=== PATIENT | female | born 1945 | race Caucasian/White ===

== ENCOUNTER 2019-04-14 12:41 | Outpatient (CLI) | payer MEDICARE, SELFPAY ==
--- NOTE | ~2019-04-14 | MM_ITS ---
EXAMINATION: MM screening [facility] BI w ede HISTORY: Screening mammogram TECHNIQUE: Craniocaudal and mediolateral oblique 3-D tomosynthesis images were obtained and synthetic 2-D images were generated. CAD analysis was submitted and interpreted. COMPARISON: 04/10/2018, 03/20/2017, 02/16/2016 BREAST PARENCHYMAL COMPOSITION: There are scattered areas of fibroglandular density. FINDINGS: An intramammary lymph node is noted in the upper outer quadrant of the left breast. There i s no evidence of suspicious mass, calcification, or architectural distortion to suggest malignancy in either breast. There has been no suspicious interval change. IMPRESSION: 1. No mammographic evidence of malignancy. 2. Recommend routine screening mammography in one year. BI-RADS Category 2: Benign finding(s). Reviewed, dictated and finalized at location A.
== END 2019-04-14 12:42 | disposition home or self-care (01) ==
PROVIDERS: PCP Internal Medicine; Visit Provider Internal Medicine
DX: Z12.31 Encounter for screening mammogram for malignant neoplasm of breast (principal)
CPT/HCPCS: 77063; 77067

== ENCOUNTER 2020-04-19 09:09 | Outpatient (CLI) | payer MEDICARE, SELFPAY ==
--- NOTE | ~2020-04-19 | MM_ITS ---
EXAMINATION: MM screening [facility] BI w ede HISTORY: Screening TECHNIQUE: Craniocaudal and mediolateral oblique 3-D tomosynthesis images were obtained and synthetic 2-D images were generated. CAD analysis was submitted and interpreted. COMPARISON: Comparison to multiple prior studies sequentially, with oldest reviewed study dated 01/05. BREAST PARENCHYMAL COMPOSITION: There are scattered areas of fibroglandular density. FINDINGS: There is no evidence of suspicious mass, calcification, or architectural distortion to sugg est malignancy in either breast. There has been no suspicious interval change. IMPRESSION: 1. No mammographic evidence of malignancy. 2. Recommend routine screening mammography in one year. BI-RADS Category 1: Negative Reviewed, dictated and finalized at location A.
== END 2020-04-19 09:10 | disposition home or self-care (01) ==
LOC: CHSIMG 09:12
PROVIDERS: PCP Internal Medicine; Visit Provider Internal Medicine
DX: Z12.31 Encounter for screening mammogram for malignant neoplasm of breast (principal)
CPT/HCPCS: 77063; 77067

== ENCOUNTER 2020-12-24 15:03 | Outpatient (RCR) | payer MEDICARE, SELFPAY ==
--- NOTE | 2020-12-24 16:01 | PTOPEVAL ---
Thank you for referring Sowmya Copeland to [facility].? The patient is scheduled to be seen for therapy? ____x/week for ___ weeks. Please review, sign, date and return this plan of care KAEL. I agree with and certify that the following plan of care is medically necessary. Referring Physician Date Admitting Provider: Attending Provider: AMY OJEDA Referring Provider: JennyPT Outpatient Evaluation Start: 12/24/20 15:04 Freq: Status: Active Protocol: Document 12/24/20 15:08 ACR (Rec: 12/24/20 16:01 ACR [id number]) Therapy Assessment Status Assessment Status Assessment Status Evaluation Evaluation Information Problem Diagnosis R hip tendonitis Onset 12/21/20 Subjective Information Patient states that she was Query Text:As Reported By Patient/ pulling a wagon in the yard Family and felt a pop in the knee. She went to the MD and got a cortizone shot in the knee which only gave relief for a couple of days. 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 Patient reports that she has difficulty moving when she first gets up. She has difficulty with navigating the steps. She does not ambulate with an AD usually but is using a standand walker today because her hip is bothering her more than usual. Patient states that she was able to walk quite a bit before she hurt her hip. Patient denies falls. Patient states that her goal for therapy is to be able to walk without pain. Prior Level of Function Activity Level (Last 3 Months) Occupation [employer] worker Hand Dominance Right Activity of Daily Living Ability Independent Indoor/Home Mobility Independent Community Mobility Independent Stairs Ability Independent Functional Cognition (Planning, Shopping Independent , Taking Medications) Cooking Yes Cleaning Yes Laundry Yes Shopping Yes Driving Yes Pain Assessment Timing of Pain Assessment Timing of Pain Assessment Assessment Pain Scale Pain Scale Used
--- NOTE | 2021-01-18 15:01 | PTOPEVAL ---
Thank you for referring Sowmya Copeland to [facility].? The patient is scheduled to be seen for therapy? ____x/week for ___ weeks. Please review, sign, date and return this plan of care KAEL. I agree with and certify that the following plan of care is medically necessary. Referring Physician Date Admitting Provider: Attending Provider: AMY OJEDA Referring Provider: JennyPT Outpatient Evaluation Start: 12/24/20 15:04 Freq: Status: Active Protocol: Document 01/18/21 14:19 ACR (Rec: 01/18/21 15:01 ACR [id number]) Therapy Assessment Status Assessment Status Assessment Status Progress Evaluation Information Problem Diagnosis R hip tendonitis Onset 12/21/20 Subjective Information Patient states that since Query Text:As Reported By Patient/ beginning therapy she is able Family to walk a lot better. She still has difficulty with the first couple of steps but it is not as bad as it use to be. The patient states that she no longer has the shooting pain. Patient states that she is able to walk with a little bit of pain, but is unsure if it is from her knee or her hip . Pain Assessment Timing of Pain Assessment Timing of Pain Assessment Assessment Pain Scale Pain Scale Used Numeric (1 - 10) Self Report Pain Assessment Right Hip(s) Reported Pain Level 2 Greatest Pain Intensity 4 Pain Score Pain Score 2: Self Report Interventions Used Interventions Used By Clinicians Activity or ADL's,Exercise Lower Extremity Muscle Strength Testing Hip Strength Right Hip Flexion Strength 4+ Good + Left Hip Flexion Strength 5 Normal Knee Strength Right Knee Flexion Strength 4+ Good + Knee Extension Strength 4+ Good + Left Knee Flexion Strength 5 Normal Knee Extension Strength 5 Normal General Exercise General Exercises Exercise Description -Nustep Query Text:Record Sets, Reps, - PROM HS/piriformis Resistance, and Position stretching x 4 min - supine marching x 1 min - right knee 90* lindsay hip flexion 5 sec x 20 - right SLR 2 x 10 - supine lindsay ball chop 5 sec x 25 - quadriped diagonals x 20 ea - right clamshell x 20
--- NOTE | 2021-01-27 15:17 | PTOPEVAL ---
Thank you for referring Sowmya Copeland to [facility].? The patient is scheduled to be seen for therapy? ____x/week for ___ weeks. Please review, sign, date and return this plan of care KAEL. I agree with and certify that the following plan of care is medically necessary. Referring Physician Date Admitting Provider: Attending Provider: AMY OJEDA Referring Provider: JennyPT Outpatient Evaluation Start: 12/24/20 15:04 Freq: Status: Active Protocol: Document 01/27/21 13:34 ACR (Rec: 01/27/21 15:16 ACR [id number]) Therapy Assessment Status Assessment Status Assessment Status Progress Evaluation Information Problem Diagnosis R hip tendonitis Subjective Information Patient reports that since Query Text:As Reported By Patient/ beginning therapy she has been Family feeling a lot better and no longer has the sharp pains in the R thigh. She reports she went back to the MD and is going in for R knee replacement on 02/23 and has a new order for prehab. Pain Assessment Timing of Pain Assessment Timing of Pain Assessment Assessment Pain Scale Pain Scale Used Numeric (1 - 10) Self Report Pain Assessment Right Hip(s) Reported Pain Level 2 Greatest Pain Intensity 6 Pain Score Pain Score 2: Self Report Interventions Used Interventions Used By Clinicians Activity or ADL's,Exercise Upper Extremity Range of Motion General Upper Extremity Range of Motion Gross Upper Extremity Range of Motion R knee AROM: 0-127 Comments Lower Extremity Muscle Strength Testing Hip Strength Right Hip Flexion Strength 5 Normal Knee Strength Right Knee Flexion Strength 4+ Good + Knee Extension Strength 4+ Good + General Exercise General Exercises Exercise Description -Nustep Query Text:Record Sets, Reps, - PROM HS/piriformis Resistance, and Position stretching x 6 min delvin - quad sets x 10 - SAQ x 10 - right SLR 2 x 10 - Patient education on TKA prehab and what to expect along with the important exercises to perform before and after surgery x 5 minutes TherEx: - heel raises x 30 - toe raises x 30 - standing hip abduction x 30 B
== END 2021-02-23 18:00 | disposition home or self-care (01) ==
LOC: CHSPT 15:03
PROVIDERS: PCP Internal Medicine
DX: M76.891 Other specified enthesopathies of right lower limb, excluding foot (principal); M17.11 Unilateral primary osteoarthritis, right knee; Z01.818 Encounter for other preprocedural examination
CPT/HCPCS: 97110; 97161; 97530

== ENCOUNTER 2021-02-01 13:43 | Outpatient (CLI) | payer MEDICARE, SELFPAY ==
--- NOTE | ~2021-02-01 | XR_ITS ---
EXAMINATION: XR chest 2V DATE: 02/01/2021 14:11 INDICATION: Hypertension. Preop. TECHNIQUE: Frontal and lateral views of the chest were obtained. COMPARISON: Chest 2 views 09/23/2014 FINDINGS: There is mild atelectasis in left lower lung zone. No pleural effusion or pneumothorax. The heart size is normal. IMPRESSION: 1. Mild atelectasis in left lower lung zone. Reviewed, dictated and finalized at location B. [employer]
[2021-02-01 14:23] LABS: Basophils Absolute Auto 0.04 K/mm3 (0.00-0.10); Basophils Percent Auto 0.8 % (0.0-1.0); Eosinophils Absolute Auto 0.27 K/mm3 (0.02-0.50); Eosinophils Percent Auto 5.2 % (1.0-6.0); Hematocrit 41.3 % (35.0-42.0); Hemoglobin 13.4 g/dL (11.7-13.8); Immature Granulocyte Absolute 0.02 K/mm3 (0.00-0.00); Immature Granulocyte Percent A 0.4 % (0.0-0.0); Lymphocytes Absolute Auto 1.21 K/mm3 (1.10-4.50); Lymphocytes Percent Auto 23.3 % (18.0-42.0); Mean Corpuscular HGB Conc 32.4 g/dL (32.0-36.0); Mean Corpuscular Hemoglobin 30.3 pg (27.0-31.0); Mean Corpuscular Volume 93.4 fL (78.0-102.0); Mean Platelet Volume 9.7 fl (9.2-11.8); Monocytes Absolute Auto 0.45 K/mm3 (0.10-0.90); Monocytes Percent Auto 8.7 % (2.0-11.0); Neutrophils Absolute Auto 3.2 K/mm3 (1.7-7.2); Neutrophils Percent Auto 61.6 % (50.0-70.0); Platelet Count Result 273 K/mm3 (150-420); Red Blood Count 4.42 M/mm3 (4.20-5.40); Red Cell Distribution Width 12.2 % (11.6-14.4); White Blood Count 5.2 K/mm3 (4.8-10.8)
[2021-02-01 14:24] LABS: Add Urine Microscopic? NO; Appearance Urine Clear (Clear); Bilirubin Urine Negative (Negative); Blood Urine Negative (Negative); Color Urine Light Yellow (Yellow); Glucose Urine UA Negative (Negative); Ketones Urine Negative (Negative); Leukocyte Esterase Ur Negative LEU/UL (Negative); Nitrate Urine Negative (Negative); Protein Urine Negative (Negative); Specific Grav Ur 1.015 (1.010-1.020); Urobilinogen Urine 0.2 mg/dL (0.2-1.0)
[2021-02-01 15:19] LABS: Alanine Aminotransferase 14 U/L (14-59); Albumin Level 3.8 g/dL (3.4-5.0); Alkaline Phosphatase 98 U/L (46-116); Anion Gap 12 mmol/L (8-16); Aspartate Amino Transferase 12 U/L (15-37); Bilirubin,Total 0.4 mg/dL (0.00-1.00); Blood Urea Nitrogen 13 mg/dL (7-18); Calcium 8.9 mg/dL (8.5-10.1); Carbon Dioxide 27 mmol/L (21-32); Chloride 103 mmol/L (98-108); Estimated Glomerular Filt Rate > 60; Glucose 90 mg/dL (70-99); Osmolality Calculated 294 mOsm/kg (285-295); Potassium 4.1 mmol/L (3.5-5.1); Sodium 142 mmol/L (136-145); Total Protein 6.6 g/dL (6.4-8.2)
== END 2021-02-01 13:44 | disposition home or self-care (01) ==
PROVIDERS: PCP Internal Medicine; Visit Provider Internal Medicine
DX: Z01.818 Encounter for other preprocedural examination (principal)
CPT/HCPCS: 36415; 71046; 80053; 81003; 85025; 87081

== ENCOUNTER 2021-07-01 11:51 | Outpatient (CLI) | payer MEDICARE, SELFPAY ==
--- NOTE | ~2021-07-01 | MM_ITS ---
EXAMINATION: MM screening [facility] BI w ede HISTORY: Screening mammogram TECHNIQUE: Craniocaudal and mediolateral oblique 3-D tomosynthesis images were obtained and synthetic 2-D images were generated. CAD analysis was submitted and interpreted. COMPARISON: 04/19/2020, 04/24/2019, 04/10/2018 bilateral screening mammogram examinations BREAST PARENCHYMAL COMPOSITION: There are scattered areas of fibroglandular density. FINDINGS: There is no evidence of suspicious mass, calcification, or architectural distortion to sugg est malignancy in either breast. There has been no suspicious interval change. IMPRESSION: 1. No mammographic evidence of malignancy. 2. Recommend routine screening mammography in one year. BI-RADS Category 1: Negative Reviewed, dictated and finalized at location A.
== END 2021-07-01 11:52 | disposition home or self-care (01) ==
LOC: CHSIMG 11:53
PROVIDERS: PCP Internal Medicine; Visit Provider Internal Medicine
DX: Z12.31 Encounter for screening mammogram for malignant neoplasm of breast (principal)
CPT/HCPCS: 77063; 77067

== ENCOUNTER 2022-05-16 01:45 | Emergency (ER) | payer MEDICARE, SELFPAY ==
[2022-05-16 01:58] VITALS: BP 136/56; PULSE 81; RESP 18; TEMP 36.4; O2SAT 99
--- NOTE | 2022-05-16 01:58 | ED.GENADULT ---
HPI - General Adult General Chief complaint: Allergic Reaction Stated complaint: Allergic Reactiom Time Seen by Provider: 05/16/22 01:49 History of Present Illness HPI narrative: The patient is a 76-year-old woman who works outside most of the time. She did not do anything differently today than she has in the past. History of hypertension and asthma. Never smoked. At 8:00 p.m. tonight, she noticed a rash which is on her torso front and back, chest abdomen and also on her left and right arms, and to a lesser extent on her left and right legs. It is itchy. Consistent with hives. Etiology unclear. No new medications. No new animal contact. No new detergents or soaps. No contact with plants out of the ordinary compared to what she normally does. No difficulty breathing. No tightening of the throat or swelling of the tongue. No other complaints. Related Data Home Medications Medication Instructions Recorded Confirmed hydrochlorothiazide 12.5 mg tablet 12.5 mg PO DAILY 05/16/22 05/16/22 losartan 100 mg tablet 100 mg PO DAILY 05/16/22 05/16/22 montelukast 10 mg tablet 10 mg PO DAILY 05/16/22 05/16/22 raloxifene 60 mg tablet 60 mg PO DAILY 05/16/22 05/16/22 Allergies Allergy/AdvReac Type Severity Reaction Status Date / Time Sulfa (Sulfonamide Allergy Unknown DOESN T Verified 05/16/22 02:03 Antibiotics) REMEMBER Review of Systems Review of Systems: All systems reviewed & are unremarkable except as noted in HPI and below Constitutional: Constitutional: Reports as per HPI, Reports no additional constitutional complaints, Denies chills, Denies excessive sweating, Denies fatigue, Denies fever(s), Denies headache(s) and Denies weakness Eyes: Eyes: Reports as per HPI, Reports no additional eye complaints, Denies change in vision and Denies photophobia ENT: Reports system reviewed and no additional complaints, except as documented, Reports as per HPI, Denies dysphagia, Denies vertigo, Denies dizziness, Denies headache(s), Denies lip swelling, Denies nasal congestion, Denies sore throat, Denies throat swelling and Denies tongue swelling Cardiovascular: Cardiovascular: Reports as per HPI, Reports no additional cardiovascular complaints, Denies chest pain, Denies syncope, Denies rapid heart rate and Denies dyspnea Respiratory: Respiratory: Reports as per HPI, Reports no additional respiratory complaints, Denies chest congestion, Denies cough, Denies dyspnea and Denies wheezing Gastrointestinal: Gastrointestinal: Reports as per HPI, Reports no additional gastrointestinal complaints, Denies abdominal pain, Denies constipation, Denies dysphagia, Denies diarrhea, Denies nausea and Denies vomiting Genitourinary: Genitourinary: Reports as per HPI, Denies hematuria, Denies urinary frequency, Denies dysuria, Denies urinary incontinence and Denies urinary urgency Musculoskeletal: Musculoskeletal: Reports no additional musculoskeletal complaints, Denies back pain, Denies myalgias, Denies arthralgias, Denies joint swelling and Denies numbness Integumentary/Breasts: Skin/Breast: Reports system reviewed and no additional complaints, except as docu, Reports pruritus, Denies erythema, Reports rash ( Diffuse) and Denies skin ulcer Neurologic: Reports system reviewed and no additional complaints, except as documented, Reports as per HPI, Denies confusion, Denies vertigo, Denies dizziness, Denies syncope, Denies headache(s), Denies focal weakness, Denies numbness and Denies weakness Psychiatric: Psychiatric: Reports as per HPI, Denies anxiety, Denies confusion, Denies depression, Denies homicidal ideation and Denies suicidal ideation Endocrine: Endocrine: Reports no additional endocrine complaints, Denies excessive sweating, Denies fatigue, Denies polydipsia and Denies polyuria Hematologic/Lymphatic: Hematologic/Lymphatic: Reports no additional hematologic/lymphatic complaints, Denies easy bleeding and Denies easy bruising Allergic/Immunologic: Parag
[2022-05-16 02:03] VITALS: BP 136/56; PULSE 81; RESP 19; TEMP 36.4; O2SAT 99
[2022-05-16 02:13] LABS: Basophils Absolute Auto 0.02 K/mm3 (0.00-0.10); Basophils Percent Auto 0.3 % (0.0-1.0); Eosinophils Absolute Auto 0.08 K/mm3 (0.02-0.50); Eosinophils Percent Auto 1.2 % (1.0-6.0); Hematocrit 34.5 % (35.0-42.0); Hemoglobin 10.4 g/dL (11.7-13.8); Immature Granulocyte Absolute 0.03 K/mm3 (0.00-0.00); Immature Granulocyte Percent A 0.5 % (0.0-0.0); Lymphocytes Absolute Auto 1.38 K/mm3 (1.10-4.50); Lymphocytes Percent Auto 20.8 % (18.0-42.0); Mean Corpuscular HGB Conc 30.1 g/dL (32.0-36.0); Mean Corpuscular Hemoglobin 23.8 pg (27.0-31.0); Mean Corpuscular Volume 78.9 fL (78.0-102.0); Mean Platelet Volume 9.2 fl (9.2-11.8); Monocytes Absolute Auto 0.42 K/mm3 (0.10-0.90); Monocytes Percent Auto 6.3 % (2.0-11.0); Neutrophils Absolute Auto 4.7 K/mm3 (1.7-7.2); Neutrophils Percent Auto 70.9 % (50.0-70.0); Platelet Count Result 333 K/mm3 (150-420); Red Blood Count 4.37 M/mm3 (4.20-5.40); Red Cell Distribution Width 15.1 % (11.6-14.4); White Blood Count 6.6 K/mm3 (4.8-10.8)
[2022-05-16] MEDS: FAMOTIDINE 20 MG/2 ML VIAL IV PUSH (02:23)
[2022-05-16] MEDS: diphenhydrAMINE HCl INJ 50 MG/ML VIAL 25 MG IV PUSH (02:23)
[2022-05-16] MEDS: methylPREDNISolone SOD SUCC 125 MG VIAL IV PUSH (02:24)
[2022-05-16 02:33] LABS: Alanine Aminotransferase 14 U/L (14-59); Albumin Level 3.2 g/dL (3.4-5.0); Alkaline Phosphatase 100 U/L (46-116); Anion Gap 8 mmol/L (8-16); Aspartate Amino Transferase 12 U/L (15-37); Bilirubin,Total 0.3 mg/dL (0.00-1.00); Blood Urea Nitrogen 20 mg/dL (7-18); Calcium 8.4 mg/dL (8.5-10.1); Carbon Dioxide 28 mmol/L (21-32); Chloride 107 mmol/L (98-108); Estimated Glomerular Filt Rate 52; Glucose 113 mg/dL (70-99); Osmolality Calculated 299 mOsm/kg (285-295); Potassium 4.2 mmol/L (3.5-5.1); Sodium 143 mmol/L (136-145); Total Protein 6.8 g/dL (6.4-8.2)
--- NOTE | 2022-05-16 03:07 | PC.NURSE ---
pt reports that she feels less itchy after the medications. pt reports that there is less redness on her arms and stomach.
[2022-05-16 03:59] VITALS: BP 132/55; PULSE 74; RESP 19; TEMP 36.9; O2SAT 99
== END 2022-05-16 04:02 | disposition home or self-care (01) ==
PROVIDERS: Emergency Provider Emergency Medicine; PCP Internal Medicine
DX: L50.9 Urticaria, unspecified (principal)
CPT/HCPCS: 36415; 80053; 85025; 96374; 96375; 99284; J1200; J2930

== ENCOUNTER 2022-05-18 00:33 | Observation (INO) | payer MEDICARE, SELFPAY ==
[2022-05-18] VITALS (8 sets, daily range): BP systolic 136–156; BP diastolic 61–105; PULSE 81–91; RESP 16–20; TEMP 36.4–36.6; O2SAT 97–100; BMI 27.3
--- NOTE | 2022-05-18 00:44 | ED.GENADULT ---
HPI - General Adult General Chief complaint: Unspecified Stated complaint: Rash Time Seen by Provider: 05/18/22 00:46 History of Present Illness HPI narrative: ?The patient is a 76-year-old woman who works outside most of the time.? History of hypertension and asthma, on montelukast 10 mg daily.? Never smoked.? She was seen here by me two days ago 05/16/2022 early am for an extensive urticarial rash with itching. She had not do anything differently that day than she had in the past.?No exposure to plants different than usual. The rash was extensive, and was on her torso front and back, chest abdomen and also on her left and right arms, and to a lesser extent on her left and right legs, with pruritus, consistent with hives/urticaria of unclear etiology.? No new medications.? No new animal contact.? No new detergents or soaps.? No contact with plants out of the ordinary compared to what she normally does.? No difficulty breathing.? No tightening of the throat or swelling of the tongue.? No other complaints. She was treated with solumedrol 125 mg IV and Benadryl IV, Pepcid IV. She was discharged home on 05/16/2022 at 3:45 am with a prescription for Prednisone x 10 days: 60 mg PO daily x 5 days then a taper over the next 5 days (50/50/30/20/10 daily). She was also prescribed benadryl prn. She has taken her prednisone 60 mg PO x 1 (05/16/2022) and again 60 mg x 1 (05/17/2022). She has taken the Benadryl prn. She was seen by her PCP earlier on 05/17/2022, and no change in her treatment algorithm was instituted. She returns due to increasing hives: the hives is more raised in places, has not gotten better, and is worse. it is now also on her thighs and lower legs, as well as her torso and arms/back as noted above. It has spared her face. It is itchy. She is uncomfortable. It also affects her breasts bilaterally. She has discomfort from the rash, especially on her L>R breasts. No dyspnea. No wheezing. No changes in her tongue/throat. Related Data Home Medications Medication Instructions Recorded Confirmed hydrochlorothiazide 12.5 mg tablet 12.5 mg PO DAILY 05/16/22 05/18/22 losartan 100 mg tablet 100 mg PO DAILY 05/16/22 05/18/22 montelukast 10 mg tablet 10 mg PO DAILY 05/16/22 05/18/22 raloxifene 60 mg tablet 60 mg PO DAILY 05/16/22 05/18/22 Allergies Allergy/AdvReac Type Severity Reaction Status Date / Time Sulfa (Sulfonamide Allergy Unknown DOESN T Verified 05/16/22 02:03 Antibiotics) REMEMBER Review of Systems Review of Systems: All systems reviewed & are unremarkable except as noted in HPI and below Constitutional: Constitutional: Reports as per HPI, Reports no additional constitutional complaints, Denies chills, Denies excessive sweating, Denies fatigue, Denies fever(s), Denies headache(s) and Denies weakness Eyes: Eyes: Reports as per HPI, Reports no additional eye complaints, Denies change in vision and Denies photophobia ENT: Reports system reviewed and no additional complaints, except as documented, Reports as per HPI, Denies dysphagia, Denies vertigo, Denies dizziness, Denies headache(s), Denies lip swelling, Denies nasal congestion, Denies sore throat, Denies throat swelling and Denies tongue swelling Cardiovascular: Cardiovascular: Reports as per HPI, Reports no additional cardiovascular complaints, Denies chest pain, Denies syncope, Denies rapid heart rate and Denies dyspnea Respiratory: Respiratory: Reports as per HPI, Reports no additional respiratory complaints, Denies chest congestion, Denies cough, Denies dyspnea and Denies wheezing Gastrointestinal: Gastrointestinal: Reports as per HPI, Reports no additional gastrointestinal complaints, Denies abdominal pain, Denies constipation, Denies dysphagia, Denies diarrhea, Denies nausea and Denies vomiting Genitourinary: Genitourinary: Reports as per HPI, Denies hematuria, Denies urinary frequency, Denies dysuria, Denies urinary incontinence and Denies urinary urgency Musculoskeletal:
[2022-05-18] MEDS: FAMOTIDINE 20 MG/2 ML VIAL IV PUSH (01:04)
[2022-05-18] MEDS: methylPREDNISolone SOD SUCC 125 MG VIAL IV PUSH (01:04)
[2022-05-18] MEDS: diphenhydrAMINE HCl INJ 50 MG/ML VIAL IV PUSH ×5 (01:04→23:18)
[2022-05-18] MEDS: SODIUM CHLORIDE 0.9% IV 1,000 ML 999 ML IV CONT ×2 (01:04→02:03)
[2022-05-18] MEDS: SODIUM CHLORIDE 0.9% IV 1,000 ML 100 ML IV CONT (01:05)
[2022-05-18] MEDS: ACETAMINOPHEN 500 MG TABLET 1000 MG PO ×2 (01:07→20:39)
[2022-05-18] MEDS: KETOROLAC 15 MG/ML VIAL (*BKC) IV PUSH (01:08)
[2022-05-18 01:26] LABS: Basophils Absolute Auto 0.01 K/mm3 (0.00-0.10); Basophils Percent Auto 0.1 % (0.0-1.0); Eosinophils Absolute Auto 0.01 K/mm3 (0.02-0.50); Eosinophils Percent Auto 0.1 % (1.0-6.0); Hematocrit 35.5 % (35.0-42.0); Hemoglobin 10.5 g/dL (11.7-13.8); Immature Granulocyte Absolute 0.03 K/mm3 (0.00-0.00); Immature Granulocyte Percent A 0.3 % (0.0-0.0); Lymphocytes Absolute Auto 1.37 K/mm3 (1.10-4.50); Lymphocytes Percent Auto 13.5 % (18.0-42.0); Mean Corpuscular HGB Conc 29.6 g/dL (32.0-36.0); Mean Corpuscular Hemoglobin 24.2 pg (27.0-31.0); Mean Corpuscular Volume 81.8 fL (78.0-102.0); Mean Platelet Volume 10.3 fl (9.2-11.8); Monocytes Absolute Auto 0.45 K/mm3 (0.10-0.90); Monocytes Percent Auto 4.4 % (2.0-11.0); Neutrophils Absolute Auto 8.3 K/mm3 (1.7-7.2); Neutrophils Percent Auto 81.6 % (50.0-70.0); Platelet Count Result 354 K/mm3 (150-420); Red Blood Count 4.34 M/mm3 (4.20-5.40); Red Cell Distribution Width 15.3 % (11.6-14.4); White Blood Count 10.2 K/mm3 (4.8-10.8)
[2022-05-18 01:42] LABS: Prothrombin Time 10.6 Seconds (9.50-12.10)
[2022-05-18 01:46] LABS: Lactic Acid Reflex 2.8 mmol/L (0.4-2.0)
[2022-05-18] MEDS: LORATADINE 10 MG TABLET 20 MG PO ×2 (01:48→09:04)
[2022-05-18 01:49] LABS: Alanine Aminotransferase 13 U/L (14-59); Albumin Level 3.1 g/dL (3.4-5.0); Alkaline Phosphatase 86 U/L (46-116); Anion Gap 13 mmol/L (8-16); Aspartate Amino Transferase 26 U/L (15-37); Bilirubin,Total 0.3 mg/dL (0.00-1.00); Blood Urea Nitrogen 28 mg/dL (7-18); Calcium 8.8 mg/dL (8.5-10.1); Carbon Dioxide 22 mmol/L (21-32); Chloride 108 mmol/L (98-108); Creatine Kinase 144 U/L (26-192); Estimated CRCL calculation 35 ml/min; Estimated Glomerular Filt Rate 46; Glucose 125 mg/dL (70-99); Magnesium 2.2 mg/dL (1.8-2.4); Osmolality Calculated 302 mOsm/kg (285-295); Potassium 3.3 mmol/L (3.5-5.1); Sodium 143 mmol/L (136-145); Total Protein 6.4 g/dL (6.4-8.2)
[2022-05-18 01:52] LABS: CRP < 0.5 mg/dL (0.0-0.9); Thyroid Stimulating Hormone Reflex 3.64 u/IU/mL (0.36-3.74)
[2022-05-18] MEDS: MONTELUKAST SODIUM 10 MG TABLET PO ×2 (01:52→20:39)
[2022-05-18 01:53] LABS: Amylase 32 U/L (25-115); Ethanol < 3 mg/dL (0-6); Lipase 33 U/L (16-77)
[2022-05-18] MEDS: cefTRIAXone 2 GM/NS 100 ML 2 GM/100 ML BAG IVPB (01:56)
[2022-05-18] MEDS: POTASSIUM BICARBONATE 25 MEQ TABEF 50 MEQ PO (02:02)
[2022-05-18 02:17] LABS: Strep Group A RT-PCR Not Detected (Negative)
[2022-05-18 02:29] LABS: Erythrocyte Sedimentation Rate 8 mm/hr (0-20)
[2022-05-18 02:29] LABS: Influenza A QL RT-PCR Negative (Negative); Influenza B QL RT-PCR Negative (Negative); RSV RNA, RT-PCR Negative (Negative); SARS-CoV-2 RNA PCR Negative (Negative)
--- NOTE | 2022-05-18 03:00 | PC.NURSE ---
pt treansfered upstairs with fluid running.
--- NOTE | 2022-05-18 03:22 | ADMGEN ---
This patient, Sowmya Copeland, was admitted to 2nd Floor Room 205-2. Patient/family oriented to hospital policies and general routines including ID bracelet, bed and alarms, visiting hours, pain management, procedures, bathroom and other care routines, personal items, smoking policy, room service/diet, and visiting hours. Information on how to activate the Rapid Response Team has been discussed. Patient/Family are encouraged to report perceived risks to care and to ask questions if they do not understand what they are told or what they should do.
[2022-05-18 04:23] LABS: Reflex Lactic Acid Yes or No Add Lactic
[2022-05-18] MEDS: RALOXIFENE HCL (*CHEMO) 60 MG TABLET PO (09:03)
[2022-05-18] MEDS: hydroCHLOROthiazide 12.5 MG CAPSULE PO (09:04)
[2022-05-18] MEDS: LOSARTAN POTASSIUM 50 MG TABLET 100 MG PO (09:04)
[2022-05-18] MEDS: methylPREDNISolone SOD SUCC 125 MG VIAL 40 MG IV PUSH ×3 (09:05→22:10)
[2022-05-18] MEDS: FAMOTIDINE 20 MG/ISO 50 ML 20 MG/50 ML BAG 100 MG IVPB (09:15)
--- NOTE | 2022-05-18 09:26 | PM.IMHP ---
H&P: HPI History of Present Illness Date/Time: 05/18/22 09:26 Chief Complaint: HIVeS, urticaria Narrative: this is a 76-year-old female who presented to the emergency room she has been seen approximately 2 days ago for hives she was treated with IV steroids and home was oral steroids and Benadryl. Patient presented back to the emergency room as the highs of return now on her face they are itchy and continually getting worse patient feels like she is not able to handle this at home and does not understand what is causing them. patient has a past medical history of high blood pressure essentially she is pretty healthy patient denies any new medications, no soaps, new perfumes, new detergents has not eaten anything new is unaware of anything new that could be causing her itching we will admit patient to that she could receive some IV medications to help with decreasing the size plan for possible discharge tomorrow . Review of Systems Review of Systems: Urticaria hives all over body All systems reviewed & are unremarkable except as noted in HPI and below PMFSH Social History Social History Smoking status: Never smoker Alcohol intake: former Substance use: current Substance use type: prescription drug Lack of Transportation: No Lack of Food: Never True Current Housing: I Have Housing Concerned About Future Housing: No Difficulty Paying Gas/Electric Bills: No Difficulty Paying for Meds: No Currently Unemployed: No Education: High School Diploma/GED Difficulty w/ Childcare or Family Care: No Spiritual care concerns: No Meds Home Medications and Allergies Home Medications Medication Instructions Recorded Confirmed Type diphenhydramine HCl 25 mg capsule 25 mg PO TID PRN itching #30 caps 05/16/22 05/18/22 Rx (Allergy Medication) hydrochlorothiazide 12.5 mg tablet 12.5 mg PO DAILY 05/16/22 05/18/22 History losartan 100 mg tablet 100 mg PO DAILY 05/16/22 05/18/22 History montelukast 10 mg tablet 10 mg PO DAILY 05/16/22 05/18/22 History prednisone 10 mg tablet 10 mg PO DIRECTED #45 tabs 05/16/22 05/18/22 Rx raloxifene 60 mg tablet 60 mg PO DAILY 05/16/22 05/18/22 History Allergies Allergy/AdvReac Type Severity Reaction Status Date / Time Sulfa (Sulfonamide Allergy Unknown DOESN T Verified 05/16/22 02:03 Antibiotics) REMEMBER Vital Signs Vital Signs - 24 hr 05/18/22 00:35 05/18/22 01:33 05/18/22 01:45 Temperature 97.8 F Pulse Rate 84 Respiratory Rate 20 Blood Pressure 136/105 H Pulse Oximetry 100 100 99 Oxygen Delivery Room Air 05/18/22 02:00 05/18/22 04:04 Temperature 97.9 F Pulse Rate 90 Respiratory Rate 19 Blood Pressure 138/62 153/79 H Pulse Oximetry 98 100 Oxygen Delivery Room Air Exam Narrative: GENERAL:Well-appearing, well-nourished, and in no acute distress. HEAD:Normocephalic, atraumatic. EYES: PERRLA and EOMI. ENT: Nares clear, no rhinorrhea or epistaxis. Mucous membranes moist. CHEST: Clear to auscultation. No respiratory distress. HEART: Regular rate and rhythm.. Normal peripheral pulses. ABDOMEN: Soft, nontender, nondistended, normal active bowel sounds. EXTREMITIES: Normal range of motion. No edema. SKIN: Warm, dry, positive for red erythema wheels all over body that are itchy rash. NEURO: No focal deficits. Alert and oriented x3. H&P: Results Labs Labs: Short CBC 05/18/22 Range/Units 01:23 WBC 10.2 (4.8-10.8) K/mm3 Hgb 10.5 L (11.7-13.8) g/dL Hct 35.5 (35.0-42.0) % Plt Count 354 (150-420) K/mm3 [facility] 05/18/22 01:23 Sodium 143 Potassium 3.3 L Chloride 108 Carbon Dioxide 22 BUN 28 H Creatinine 1.15 H Glucose 125 H Calcium 8.8 Cardiac Enzymes 05/18/22 Range/Units 01:23 Total Creatine Kinase 144 (26-192) U/L Liver Function 05/18/22 Range/Units 01:23 Total Bilirubin 0.3 (0.00-1.00) mg/dL AST 26 (15-
[2022-05-18] MEDS: hydrOXYzine HCL 25 MG TABLET 50 MG PO ×2 (14:35→20:39)
[2022-05-18 15:45] LABS: Appearance Urine Clear (Clear); Bilirubin Urine Negative (Negative); Blood Urine Negative (Negative); Color Urine Light Yellow (Yellow); Glucose Urine UA Negative (Negative); Ketones Urine Negative (Negative); Leukocyte Esterase Ur Negative LEU/UL (Negative); Nitrate Urine Negative (Negative); Protein Urine Negative (Negative); Specific Grav Ur <= 1.005 (1.010-1.020); Urobilinogen Urine 0.2 mg/dL (0.2-1.0)
[2022-05-18 15:48] LABS: Add Urine Microscopic? NO
[2022-05-18 15:52] LABS: Amphetamine Screen Urine Negative (Negative); Barbiturate Screen Urine Negative (Negative); Benzodiazepines Screen Urine Negative (Negative); Cannabinoid Screen Urine Negative (Negative); Cocaine Screen Urine Negative (Negative); Methadone Screen Urine Negative (Negative); Opiate Screen Urine Negative (Negative); Phencyclidine Screen Urine Negative (Negative)
[2022-05-18] MEDS: FAMOTIDINE 20 MG TABLET PO (20:39)
[2022-05-18] MEDS: HYDROCORTISONE 1% 30 GM CREAM 1 APPLIC TOPICAL (20:39)
[2022-05-19] VITALS: BP 149/78; PULSE 90; RESP 17; TEMP 36.7; O2SAT 99
[2022-05-19] MEDS: hydrOXYzine HCL 25 MG TABLET 50 MG PO ×4 (02:09→20:26)
[2022-05-19 05:26] LABS: Hematocrit 28.6 % (35.0-42.0); Hemoglobin 8.5 g/dL (11.7-13.8); Mean Corpuscular HGB Conc 29.7 g/dL (32.0-36.0); Mean Corpuscular Hemoglobin 23.5 pg (27.0-31.0); Mean Platelet Volume 9.3 fl (9.2-11.8); Platelet Count Result 297 K/mm3 (150-420); Red Blood Count 3.62 M/mm3 (4.20-5.40); Red Cell Distribution Width 15.3 % (11.6-14.4); White Blood Count 9.1 K/mm3 (4.8-10.8)
[2022-05-19] MEDS: methylPREDNISolone SOD SUCC 125 MG VIAL 40 MG IV PUSH ×3 (05:33→21:52)
[2022-05-19] MEDS: diphenhydrAMINE HCl INJ 50 MG/ML VIAL IV PUSH ×3 (05:33→16:56)
[2022-05-19 06:45] LABS: Anion Gap 4 mmol/L (8-16); Blood Urea Nitrogen 15 mg/dL (7-17); Calcium 7.8 mg/dL (8.4-10.2); Carbon Dioxide 27 mmol/L (22-30); Chloride 108 mmol/L (98-107); Estimated Glomerular Filt Rate > 60; Glucose 124 mg/dL (65-110); Osmolality Calculated 289 mOsm/kg (285-295); Sodium 139 mmol/L (137-145)
[2022-05-19 07:58] VITALS: BP 159/66; PULSE 91; RESP 14; TEMP 36.7; O2SAT 99
[2022-05-19] MEDS: hydroCHLOROthiazide 12.5 MG CAPSULE PO (08:47)
[2022-05-19] MEDS: LORATADINE 10 MG TABLET 20 MG PO (08:47)
[2022-05-19] MEDS: FAMOTIDINE 20 MG TABLET PO ×2 (08:47→20:27)
[2022-05-19] MEDS: LOSARTAN POTASSIUM 50 MG TABLET 100 MG PO (08:48)
[2022-05-19] MEDS: HYDROCORTISONE 1% 30 GM CREAM 1 APPLIC TOPICAL (08:49)
[2022-05-19] MEDS: RALOXIFENE HCL (*CHEMO) 60 MG TABLET PO (08:49)
--- NOTE | 2022-05-19 10:27 | PM.IMPN ---
Progress Note: A&P Assessment and Plan (1) Acute idiopathic urticaria: Code(s): L50.1 - Idiopathic urticaria Status: Acute Assessment and Plan: Pepcid Benadryl Steroids IV IV fluids Avoidance hydrocortisone changed to triamcinolone (2) Acute kidney injury: Code(s): N17.9 - Acute kidney failure, unspecified Status: Acute Assessment and Plan: IV fluids Avoid any nephrotoxic medications (3) Acute hypokalemia: Code(s): E87.6 - Hypokalemia Status: Acute Plan Oral potassium Will monitor labs Subjective Date/time seen: 05/19/22 10:27 Interval history: Patient hives have improved but are not good. Patient cream will changed from hydrocortisone cream to Triamcinolone cream. Patient is still very itchy and the rash is not on face but still remain all over her body. I have discussed with patient and one more day my improve some of the rash and we will see if the new cream helps Objective Data Vital Signs Vital Signs: Vital Signs - 24 hr 05/18/22 16:45 05/18/22 19:54 05/19/22 00:00 Temperature 97.6 F 98.1 F Pulse Rate 91 91 90 Respiratory Rate 16 16 17 Blood Pressure 156/66 H 149/78 H Pulse Oximetry 97 97 99 Oxygen Delivery Room Air Room Air Room Air 05/19/22 07:58 Temperature 98.1 F Pulse Rate 91 Respiratory Rate 14 Blood Pressure 159/66 H Pulse Oximetry 99 Oxygen Delivery Room Air Intake/Output Intake/Output: Intake & Output 05/16/22 05/17/22 05/18/22 05/19/22 23:59 23:59 23:59 23:59 Intake Total 3430 1270 Output Total 1500 Balance 1930 1270 Meds/Results Medications: Active Medications Generic Name Dose Route Start Last Admin Trade Name Freq PRN Reason Stop Dose Admin Acetaminophen 1,000 mg 05/18/22 01:55 05/18/22 20:39 Acetaminophen 500 Mg Tablet PO 1,000 mg Q6HR PRN Administration Pain 1-3 or Fever Diphenhydramine HCl 50 mg 05/18/22 06:00 05/19/22 05:33 Diphenhydramine Hcl Inj 50 Mg/Ml Vial IV PUSH 50 mg Q6HR [facility] Administration Famotidine 20 mg 05/18/22 09:00 05/19/22 08:47 Famotidine 20 Mg Tablet PO 20 mg Q12HR [facility] Administration Hydrochlorothiazide 12.5 mg 05/18/22 09:00 05/19/22 08:47 Hydrochlorothiazide 12.5 Mg Capsule PO 12.5 mg QAM [facility] Administration Hydroxyzine HCl 50 mg 05/18/22 02:00 05/19/22 08:46 Hydroxyzine Hcl 25 Mg Tablet PO 50 mg Q6H PRN Administration Itching Loratadine 20 mg 05/18/22 09:00 05/19/22 08:47 Loratadine 10 Mg Tablet PO 20 mg QAM [facility] Administration Losartan Potassium 100 mg 05/18/22 09:00 05/19/22 08:48 Losartan Potassium 50 Mg Tablet PO 100 mg DAILY [facility] Administration Methylprednisolone Sodium Succinate 40 mg 05/18/22 08:00 05/19/22 05:33 Methylprednisolone Sod Succ 125 Mg Vial IV PUSH 40 mg Q8HR [facility] Administration Montelukast Sodium 10 mg 05/18/22 21:00 05/18/22 20:39 Montelukast Sodium 10 Mg Tablet PO 10 mg HS [facility] Administration Morphine Sulfate 4 mg 05/18/22 01:55 Morphine Sulfate (*Crx) 4 Mg/Ml Inj IV PUSH Q4HR PRN Pain Rated 7-10 Raloxifene HCl 60 mg 05/18/22 09:00 05/19/22 08:49 Raloxifene Hcl (*Chemo) 60 Mg [facility] [place] Triamcinolone Acetonide 1 applic 05/19/22 09:00 Triamcinolone Acet 0.1% Oint 15 Gm Tube TOPICAL Q12HR [facility] Labs Labs: Laboratory Results - last 24 hr 05/18/22 05/18/22 05/19/22 15:30 15:30 05:17 WBC 9.1 RBC 3.62 L Hgb 8.5 L Hct 28.6 L MCV 79.0 MCH 23.5 L MCHC 29.7 L RDW 15.3 H Plt Count 297 MPV 9.3 Sodium Potassium Chloride Carbon Dioxide Anion Gap BUN Creatinine Estim Creat Clear Calc Estimated GFR Glucose Calculated Osmolality Calcium Urine Color Light yellow Urine Appearance Clear Urine pH 6.0 Ur Specific [place] <= 1.005 L Urine Protein Negative Urine Glucose (UA) N
[2022-05-19] MEDS: TRIAMCINOLONE ACET 0.1% OINT 15 GM TUBE 1 APPLIC TOPICAL (11:17)
[2022-05-19 16:00] VITALS: BP 177/75; PULSE 77; RESP 18; TEMP 36.4; O2SAT 97
[2022-05-19] MEDS: MONTELUKAST SODIUM 10 MG TABLET PO (20:26)
[2022-05-19 20:31] VITALS: BP 166/71; PULSE 75; RESP 16; TEMP 36.6; O2SAT 96
[2022-05-20] MEDS: diphenhydrAMINE HCl INJ 50 MG/ML VIAL IV PUSH ×3 (00:20→11:42)
--- NOTE | 2022-05-20 05:05 | PC.NURSE ---
Did not apply tiamcinolone cream as ordered. Saw that it was greyed out in pyxis and overlooked it on APR.
[2022-05-20] MEDS: methylPREDNISolone SOD SUCC 125 MG VIAL 40 MG IV PUSH ×2 (06:28→13:24)
[2022-05-20 07:43] VITALS: BP 161/64; PULSE 74; RESP 16; TEMP 36.7; O2SAT 98
[2022-05-20] MEDS: hydrOXYzine HCL 25 MG TABLET 50 MG PO (08:28)
[2022-05-20] MEDS: hydroCHLOROthiazide 12.5 MG CAPSULE PO (08:29)
[2022-05-20] MEDS: LORATADINE 10 MG TABLET 20 MG PO (08:30)
[2022-05-20] MEDS: FAMOTIDINE 20 MG TABLET PO (08:30)
[2022-05-20] MEDS: LOSARTAN POTASSIUM 50 MG TABLET 100 MG PO (08:31)
[2022-05-20] MEDS: RALOXIFENE HCL (*CHEMO) 60 MG TABLET PO (08:32)
--- NOTE | 2022-05-20 11:01 | PM.DS ---
DS: Admitting Diagnosis Discharge Date 05/20/2022 Admitting Diagnosis HIVes, Urticaria DS: Discharge Diagnosis Discharge Diagnosis (1) Acute idiopathic urticaria: Code(s): L50.1 - Idiopathic urticaria Status: Acute Assessment and Plan: Pepcid Benadryl Steroids IV IV fluids Avoidance hydrocortisone changed to triamcinolone (2) Acute kidney injury: Code(s): N17.9 - Acute kidney failure, unspecified Status: Acute Assessment and Plan: IV fluids Avoid any nephrotoxic medications (3) Acute hypokalemia: Code(s): E87.6 - Hypokalemia Status: Acute Plan Oral potassium Will monitor labs DS: Summary Hospital Course Reason for hospitalization: HIVES, [place] Hospital Course: this is a 76-year-old came in with some urticaria and hives all over her body patient was previously treated as outpatient where she was taken oral steroids and Benadryl and it seemed to be getting worse the patient came in. Patient had hives and urticaria all over her face neck chest back arms bilaterally as well as legs and buttocks bilaterally patient denies anything making it better at home. While inpatient patient received IV Pepcid, IV steroids, and IV Benadryl as well as some oral Atarax without any symptoms of shortness of breath. Patient was seen patient was seen prior to discharge rash was removed from her was not seen on face was still has urticaria rash on back buttocks legs and arms we will send her home with oral steroids with oral Benadryl and some Pepcid. Lab allergy food testing has been sent off those results are still pending. Spine to patient she needs follow-up with a primary care doctor as she may want to see an healthcare liaison as well Time Spent with Patient Time attestation: Total time spent providing and/or coordinating discharge services: Exam Narrative: GENERAL:Well-appearing, well-nourished, and in no acute distress. HEAD:Normocephalic, atraumatic. EYES: PERRLA and EOMI. ENT: Nares clear, no rhinorrhea or epistaxis. Mucous membranes moist. CHEST: Clear to auscultation. No respiratory distress. HEART: Regular rate and rhythm.. Normal peripheral pulses. ABDOMEN: Soft, nontender, nondistended, normal active bowel sounds. EXTREMITIES: Normal range of motion. No edema. SKIN: Warm, dry, positive for red erythema wheels all over body that are itchy rash. NEURO: No focal deficits. Alert and oriented x3. DS: Data Data Completed and Pending Labs on day of discharge: Labs from last 24 hours 05/19/22 11:43 Food Allergy Major Pending Discharge Plan Discharge Attending physician on discharge: Zach Rush Consulting providers: Manda Waterman Discharging Clinician: Manda Waterman Anticipated Discharge Date/Time: 05/20/22 10:55 Patient Disposition: Home, Self-Care Activity: may shower and as tolerated Diet: regular and heart healthy Wound Care Instructions: follow printed instructions Discharge Instructions: Make sure that you are using nothing new we have sent off a food allergy Panel and we are awaiting for the results to come back. Patient Instructions: Antihistamine (By mouth), Prednisone (By mouth), Diphenhydramine (By mouth), Hydrocortisone (On the skin), Urticaria (ED), Allergies (ED), Allergy Testing (DC) Stand Alone Forms: General Discharge Information Follow-up/Referrals: Ben Crain MD [Primary Care Provider] - (Call Sunday and schedule appointment next week ) Discharge Medications: New hydrocortisone 2.5 % cream 1 applic topical BID PRN (Reason: allergic reaction) Qty: 30 0RF Rx Instructions: Do not place on face Continued raloxifene 60 mg tablet 60 mg PO DAILY montelukast 10 mg tablet 10 mg PO DAILY losartan 100 mg tablet 100 mg PO DAILY hydrochlorothiazide 12.5 mg tablet 12.5 mg PO DAILY diphenhydramine HCl [Allergy Medication] 25 mg capsule
--- NOTE | 2022-05-20 14:05 | PC.NURSE ---
Discharge instructions given to patient and patient's son. Both voiced understanding. Personal belongings sent home with patient upon discharge. IV discontinued prior to discharge. Hydrocortisone cream sent home with patient. Patient left unit in w/c accompanied by sports book writer and her son. Patient left hospital grounds in privately owned vehicle.
--- NOTE | 2022-05-23 12:15 | PC.NURSE ---
Unable to contact for discharge call back.
== END 2022-05-20 14:05 | disposition home or self-care (01) ==
LOC: CHSED 02:05 → CHS2ND 02:59
PROVIDERS: Nurse Practitioner Family; Admitting Provider Internal Medicine; Emergency Provider Emergency Medicine; PCP Internal Medicine; Visit Provider Internal Medicine
DX: L50.1 Idiopathic urticaria (principal); N17.9 Acute kidney failure, unspecified; I10 Essential (primary) hypertension; J45.909 Unspecified asthma, uncomplicated; E87.20 Acidosis, unspecified; E87.6 Hypokalemia; Z20.822 Contact with and (suspected) exposure to COVID-19
CPT/HCPCS: 36415; 80048; 80053; 80307; 81003; 82150; 82550; 83605; 83690; 83735; 84443; 85025; 85027; 85610; 85652; 85730; 86003; 86140; 87637; 87651; 96361; 96365; 96366; 96375; 96376; 99285; A9270; G0378; J0696; J1200; J1885; J2930; J7030

== ENCOUNTER 2022-06-28 01:10 | Day surgery (SDC) | payer MEDICARE, SELFPAY ==
[2022-06-12 13:56] VITALS: BMI 26.2
--- NOTE | 2022-06-27 19:59 | PM.HPGS ---
History of Present Illness History of Present Illness Consent: Risks, benefits, and alternatives have been discussed and questions answered. Patient agrees to proceed with procedure. Chief complaint: BROOKS Narrative: Sowmya Copeland is a 76 year old female with anemia, Hbg dropped from 13 in 2020 to 8.5 Review of Systems Review of Systems: All systems reviewed & are unremarkable except as noted in HPI and below PMFSH Social History Social History Smoking status: Never smoker Alcohol intake: never Substance use: never Substance use type: does not use Lack of Transportation: No Lack of Food: Never True Current Housing: I Have Housing Concerned About Future Housing: No Difficulty Paying Gas/Electric Bills: No Difficulty Paying for Meds: No Currently Unemployed: No Education: High School Diploma/GED Difficulty w/ Childcare or Family Care: No Living arrangements: with roommate(s) Spiritual care concerns: No Meds Home Medications and Allergies Home Medications Medication Instructions Recorded Confirmed Type hydrochlorothiazide 12.5 mg tablet 12.5 mg PO DAILY 05/16/22 06/12/22 History losartan 100 mg tablet 100 mg PO DAILY 05/16/22 06/12/22 History montelukast 10 mg tablet 10 mg PO DAILY 05/16/22 06/12/22 History raloxifene 60 mg tablet 60 mg PO DAILY 05/16/22 06/12/22 History hydrocortisone 2.5 % topical cream 1 applic topical BID PRN allergic 05/20/22 Rx reaction #30 grams prednisone 10 mg tablet 10 mg PO DIRECTED #45 tabs 05/20/22 Rx famotidine 40 mg tablet 40 mg PO DAILY 06/12/22 06/12/22 History ferrous gluconate 324 mg PO DAILY 06/12/22 06/12/22 History Allergies Allergy/AdvReac Type Severity Reaction Status Date / Time Sulfa (Sulfonamide Allergy Unknown DOESN T Verified 06/28/22 09:24 Antibiotics) REMEMBER Exam Const: General: alert Orientation/consciousness: patient oriented x3 Resp: Auscultation: clear to auscultation bilaterally Cardio: Rhythm: regular rhythm GI: GI Palp: Yes Soft to palpation and No Tenderness to palpation present (GI) Neuro: General: patient oriented x3 Assessment and Plan Assessment and plan (1) Anemia: Code(s): D64.9 - Anemia, unspecified Status: Acute Assessment and Plan: EGD with possible biopsy or dilatation or cautery. Colonoscopy with possible biopsy or polypectomy or cautery or injection of substances.
[2022-06-28 09:25] VITALS: BP 155/64; PULSE 78; RESP 20; TEMP 36.1; O2SAT 100
[2022-06-28] MEDS: LACTATED RINGERS 1,000 ML 150 ML IV CONT (09:37)
--- NOTE | 2022-06-28 09:44 | P.PNAN_ITS ---
Anes - Initial Pre Proc Eval Procedure: Operation Date: 06/28/22 10:45 Proposed Procedures p Esophagogastroduodenoscopy & Colonoscopy - Vinny De Luna MD Date/Time: 06/28/22 09:44 Surgeon: Vinny De Luna MD Pre Op Diagnosis: BROOKS Patient Data Age: 76 Gender: F Height: 1.47 m Weight: 56.4 kg Last Vital Signs Temp 97 F L 06/28/22 09:25 Pulse 78 06/28/22 09:25 Resp 20 06/28/22 09:25 BP 155/64 H 06/28/22 09:25 Pulse Ox 100 06/28/22 09:25 O2 Del Method Room Air 06/28/22 09:25 Allergies Allergy/AdvReac Type Severity Reaction Status Date / Time Sulfa (Sulfonamide Allergy Unknown DOESN T Verified 06/28/22 09:24 Antibiotics) REMEMBER Home Medications Medication Instructions Recorded Confirmed Type hydrochlorothiazide 12.5 mg tablet 12.5 mg PO DAILY 05/16/22 06/12/22 History losartan 100 mg tablet 100 mg PO DAILY 05/16/22 06/12/22 History montelukast 10 mg tablet 10 mg PO DAILY 05/16/22 06/12/22 History raloxifene 60 mg tablet 60 mg PO DAILY 05/16/22 06/12/22 History hydrocortisone 2.5 % topical cream 1 applic topical BID PRN allergic 05/20/22 Rx reaction #30 grams prednisone 10 mg tablet 10 mg PO DIRECTED #45 tabs 05/20/22 Rx famotidine 40 mg tablet 40 mg PO DAILY 06/12/22 06/12/22 History ferrous gluconate 324 mg PO DAILY 06/12/22 06/12/22 History Patient hx anesthesia problems: none Family hx anesthesia problems: none Results Review: All pre-operative results and documents have been reviewed as part of the pre- operative evaluation. [facility] [place] Social History Social History Smoking status: Never smoker Alcohol intake: never Substance use: never Substance use type: does not use Lack of Transportation: No Lack of Food: Never True Current Housing: I Have Housing Concerned About Future Housing: No Difficulty Paying Gas/Electric Bills: No Difficulty Paying for Meds: No Currently Unemployed: No Education: High School Diploma/GED Difficulty w/ Childcare or Family Care: No Living arrangements: with roommate(s) Spiritual care concerns: No Anes - Eval Final PreProcedure Day of Procedure 06/28/22 09:44 Patient weight: normal Heart: regular rate and rhythm Lungs: clear to auscultation Airway: Mallampati scale class III Neurological: alert and oriented Last oral intake: >/= 8 hours ASA classification: II Emergent: no Anesthetic plan: proceed Anesthesia type and monitoring: general GIVS and standard monitoring Results Review: All pre-operative results and documents have been reviewed as part of the pre-operative evaluation. Informed Consent: The patient's anesthetic plan and its attendant risks and benefits were discussed with the patient/family/POA. Questions were solicited and answers provided to the satisfaction of the patient/family/POA.
--- NOTE | 2022-06-28 10:32 | SUR.OPER ---
EGD start 1035 end 1039 colonoscopy start 104
[2022-06-28 10:58] VITALS: BP 144/65; PULSE 69; RESP 24; O2SAT 100
[2022-06-28 11:08] VITALS: BP 155/68; PULSE 67; RESP 22; O2SAT 100
[2022-06-28 11:18] VITALS: BP 160/43; PULSE 64; RESP 20; O2SAT 100
== END 2022-06-28 11:31 | disposition home or self-care (01) ==
PROVIDERS: PCP Internal Medicine; Visit Provider Internal Medicine Gastroenterology
PROC: 0DJ08ZZ Inspection of Upper Intestinal Tract, Via Natural or Artificial Opening Endoscopic (ICD-10-PCS; CPT 43235; principal; 2022-06-28 10:45)
DX: C18.0 Malignant neoplasm of cecum (principal); D50.9 Iron deficiency anemia, unspecified; K57.30 Diverticulosis of large intestine without perforation or abscess without bleeding; K22.2 Esophageal obstruction; K44.9 Diaphragmatic hernia without obstruction or gangrene
CPT/HCPCS: 45380; 43239; 88305; J2001; J2704; J7120

== ENCOUNTER 2022-07-12 07:49 | Outpatient (CLI) | payer MEDICARE, SELFPAY ==
--- NOTE | ~2022-07-12 | CT_ITS ---
CT of the Abdomen and Pelvis: Indication: Colon cancer Technique: 2.5 mm axial scans were obtained through the abdomen and pelvis following intravenous adm inistration of 100 cc of Omnipaque 350. Dose reduction technique was used on this scan by utilizing a utomated exposure control and iterative reconstruction technique. The dose-length product (DLP) was 2 81.82 mGy-cm. Findings: Scans through the lung bases demonstrate small to moderate hiatal hernia. Scattered hypodense hepatic lesions are most consistent with scattered cysts, though some are too sma ll to characterize accurately. Calcified gallstones are present. The spleen, pancreas, adrenals and k idneys are within normal limits. There are atherosclerotic calcifications of the aorta. No lymphaden opathy. There is a circumferential lesion at the proximal ascending colon, measuring up to approximately 4.5 cm in maximum diameter, consistent with colonic adenocarcinoma. There is focal luminal narrowing at t his region without paul bowel obstruction. Images through the pelvis were performed. Urinary bladder unremarkable. 3.4 cm right adnexal cyst pre sent. No ascites. Chronic fracture deformity of the right inferior pubic ramus noted. Impression: Circumferential wall thickening of the proximal descending colon is consistent with colonic adenocarc inoma, as detailed above. No definite evidence for metastatic disease. Probable scattered hepatic cysts. Cholelithiasis. 3.4 cm right adnexal cyst. Reviewed, dictated and finalized at [facility]. Impression: Circumferential wall thickening of the proximal descending colon is consistent with colonic adenocarcinoma, as detailed above. No definite evidence for metastatic disease. Probable scattered hepatic cysts. Cholelithiasis. 3.4 cm right adnexal cyst.
[2022-07-12 08:19] LABS: Estimated Glomerular Filt Rate > 60
== END 2022-07-12 07:50 | disposition home or self-care (01) ==
LOC: CHSIMG 07:51
PROVIDERS: PCP Internal Medicine; Visit Provider Surgery
DX: C18.9 Malignant neoplasm of colon, unspecified (principal); K80.20 Calculus of gallbladder without cholecystitis without obstruction; N83.8 Other noninflammatory disorders of ovary, fallopian tube and broad ligament
CPT/HCPCS: 74177; Q9967

== ENCOUNTER 2022-07-25 09:42 | Outpatient (CLI) | payer MEDICARE, SELFPAY ==
--- NOTE | 2022-07-25 10:33 | ECG_ITS ---
Measurements Intervals [place] Rate: 68 P: -10 ND: 189 QRS: 2 QRSD: 89 T: 33 QT: 402 QTc: 429 Interpretive Statements SINUS RHYTHM LOW QRS VOLTAGE IN PRECORDIAL LEADS [QRS DEFLECTION < 1.0 mV IN CHEST LEADS] POSSIBLE RIGHT VENTRICULAR CONDUCTION DELAY [RSR (QR) IN V1/V2] BASELINE ARTIFACT PRESENT NO PREVIOUS ECG AVAILABLE FOR COMPARISON Electronically Signed On 07-25-2022 16:18:02 CDT by Yulissa Walker M.D.
[2022-07-25 12:00] LABS: Hematocrit 38.7 % (37.0-47.0)
[2022-07-25 12:09] LABS: Anion Gap 6 mmol/L (8-16); Blood Urea Nitrogen 15 mg/dL (7-17); Carbon Dioxide 30 mmol/L (22-30); Chloride 104 mmol/L (98-107); Estimated Glomerular Filt Rate > 60; Glucose 85 mg/dL (65-110); Potassium 4.5 mmol/L (3.4-5.0); Sodium 140 mmol/L (137-145)
[2022-07-25 12:39] LABS: Carcinoembryonic Antigen 8.5 ng/mL (0.0-3.0)
== END 2022-07-25 09:43 | disposition home or self-care (01) ==
PROVIDERS: Anesthesiology; PCP Internal Medicine; Visit Provider Surgery
DX: Z01.812 Encounter for preprocedural laboratory examination (principal); Z01.810 Encounter for preprocedural cardiovascular examination; C18.9 Malignant neoplasm of colon, unspecified; I10 Essential (primary) hypertension; D64.9 Anemia, unspecified
CPT/HCPCS: 36415; 80048; 82378; 85014; 85018; 86850; 86870; 86880; 86900; 86901; 86902; 86905; 86922; 86971; 86972; 86977; 93005

== ENCOUNTER 2022-07-31 11:23 | Inpatient (IN) | payer MEDICARE, SELFPAY ==
--- NOTE | 2022-07-25 09:47 | PC.NURSE ---
Report to the Outpatient Waiting Room, entrance under the green pavilion located off [facility], at time _0600_ on date _[id number]_. Planned Procedure Time: _0730_. Time changes happen often and if your time is changed the preop area will call you the afternoon before. - You and your visitor will be asked to self-screen and do not enter if you have any COVID symptoms. - A mask is optional within the hospital at this time. Patients may have clear liquids (water, carbonated beverages, clear teas, apple juice) until 3 hours prior to surgery with a maximum of 20 ounces. - No food from midnight until time of surgery Take the following medications with a SIP of water the morning of surgery: ____None DO NOT STOP ANY OF YOUR OTHER PRESCRIPTION MEDICATIONS PRIOR TO SURGERY ?EXCEPT THE FOLLOWING Medications to discontinue per physician All Vitamins Date to take last woeq____[id number] Please no make-up, nail vincentian, hairspray, perfume, deodorant, or body powder the day of surgery. No jewelry (including any body piercings) or valuables the day of surgery, leave them at home. Please take a shower or bath the night before, or the morning of, surgery with an Hebiclense, an antibacterial soap. Wear comfortable, loose fitting clothing. - Jewelry must be removed prior to entering the operating room. Rings and piercings that are not removed may be cut off. - The hospital will not accept responsibility for valuables. - Please leave all valuables, including medications, at home the day of surgery. If you are going home after surgery, a licensed hazardous materials driver must drive you home. - NO public transportation without another adult if you receive anesthesia. - We recommend that an adult stay with you for 24 hours following discharge. - We also recommend that you do not drive, make important decision, drink alcoholic beverages, or take any drugs that were not prescribed by your health care provider for at least 24 hours after your discharge time. Follow any additional instructions given to you from your surgeon. If you or anyone in your household have experienced Covid symptoms in the past week, please notify your surgeon or the nurse liaison at the phone number below for possible testing. Telephone instructions given to __Patient__and asked if any additional questions and then verbalized understanding. Patient advised to call surgeon office or pre surgery nurse liaison [phone] if any additional questions.
[2022-07-25 09:56] VITALS: BP 152/46; PULSE 71; RESP 16; TEMP 36.8; O2SAT 99; BMI 27.2
[2022-07-31] VITALS (13 sets, daily range): BP systolic 139–182; BP diastolic 37–74; PULSE 53–88; RESP 12–20; TEMP 35.8–36.6; O2SAT 84–100; BMI 26.4; BMI 37.0
[2022-07-31] MEDS: LACTATED RINGERS 1,000 ML 30 ML IV CONT ×2 (06:35→11:22)
[2022-07-31] MEDS: KETOROLAC 15 MG/ML VIAL (*BKC) IV PUSH (06:49)
[2022-07-31] MEDS: ACETAMINOPHEN 500 MG TABLET 1000 MG PO (06:49)
[2022-07-31] MEDS: ALVIMOPAN 12 MG CAPSULE PO (07:04)
--- NOTE | 2022-07-31 07:10 | WPDANESEPPF ---
Anes - Initial Pre Proc Eval Procedure: Operation Date: 07/31/22 07:30 Proposed Procedures p Robotic Assisted Right Colectomy - Melanie Araujo MD Date/Time: 07/31/22 07:10 Surgeon: Melanie Araujo MD Pre Op Diagnosis: Rt Colon Cancer Patient Data Age: 76 Gender: F Height: 1.45 m Weight: 55.5 kg Last Vital Signs Temp 36.8 C 07/25/22 09:56 Pulse 71 07/25/22 09:56 Resp 16 07/25/22 09:56 BP 152/46 H 07/25/22 09:56 Pulse Ox 99 07/25/22 09:56 O2 Del Method Room Air 07/25/22 09:56 Allergies Allergy/AdvReac Type Severity Reaction Status Date / Time Sulfa (Sulfonamide Allergy Unknown DOESN T Verified 07/31/22 06:57 Antibiotics) REMEMBER Home Medications Medication Instructions Recorded Confirmed Type losartan 100 mg tablet 100 mg PO DAILY 05/16/22 07/25/22 History montelukast 10 mg tablet 10 mg PO DAILY 05/16/22 07/25/22 History raloxifene 60 mg tablet 60 mg PO DAILY 05/16/22 07/25/22 History famotidine 40 mg tablet 40 mg PO DAILY 06/12/22 07/25/22 History ferrous gluconate 324 mg PO DAILY 06/12/22 07/31/22 History ciprofloxacin HCl 500 mg tablet 500 mg PO .COMPLEX #1 tablet 07/13/22 Rx metronidazole 500 mg tablet 500 mg PO .COMPLEX #3 tabs 07/13/22 Rx ascorbic acid (vitamin C) 500 mg 500 mg PO DAILY 07/25/22 07/31/22 History chewable tablet (Vitamin C) calcium 300 mg chewable tablet 300 mg PO DAILY 07/25/22 07/31/22 History cholecalciferol (vitamin D3) 25 25 mcg PO DAILY 07/25/22 07/31/22 History mcg (1,000 unit) capsule (Vitamin D3) cyanocobalamin (vitamin B-12) 500 250 mcg PO DAILY 07/25/22 07/31/22 History mcg tablet (Vitamin B-12) hydrochlorothiazide 12.5 mg tablet 12.5 mg PO QAM 07/25/22 07/25/22 History Laboratory Tests 07/25/22 10:40 Blood Type Pending Antibody Screen Pending Enhanced Crossmatch See Detail Patient hx anesthesia problems: post op nausea/vomiting Family hx anesthesia problems: none Results Review: All pre-operative results and documents have been reviewed as part of the pre-operative evaluation. PMFSH Past Medical History Medical History Anemia Hypertension Surgical History Surgical History H/O sinus surgery History of delivery History of tonsillectomy Social History Social History Smoking status: Never smoker Alcohol intake: current Substance use: never Substance use type: does not use Lack of Transportation: No Lack of Food: Never True Current Housing: I Have Housing Concerned About Future Housing: No Difficulty Paying Gas/Electric Bills: No Difficulty Paying for Meds: No Currently Unemployed: No Education: High School Diploma/GED Difficulty w/ Childcare or Family Care: No Living arrangements: with family Occupation/Education: retired Additional occupation/education comments: 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 Informed Consent: The patient's anesthetic plan and its attendant risks and benefits were discussed with the patient/family/POA. Questions were solicited and answers provided to the satisfaction of the patient/family/POA.
--- NOTE | 2022-07-31 07:12 | WPDHPUPDATE1 ---
History and Physical Update Update Date/Time: 07/31/22 07:12 History and Physical has been reviewed, including an updated exam of the patient. There are NO changes in the patient's condition. Risks, benefits, and alternatives have been discussed and questions answered. Patient agrees to proceed with procedure.
[2022-07-31] MEDS: ceFAZolin 2 GM/D5W 50 ML 2 GM/50 ML BAG IVPB (07:28)
[2022-07-31] MEDS: metroNIDAZOLE 500 MG/ISO 100ML 500 MG/100 ML BAG 100 MG IVPB (07:43)
[2022-07-31] MEDS: INDOCYANINE GREEN 25 MG VIAL WITH DILUENT 3.75 MG IV PUSH (09:14)
--- NOTE | 2022-07-31 11:26 | W.PM.PROC2 ---
Procedure Note - Detailed Date of Procedure 07/31/22 Pre-op Diagnosis Right colon adenocarcinoma Post-op Diagnosis Same Procedure Performed robotic assisted right colectomy Surgeon Melanie Araujo MD Anesthesia General Indications 76-year-old female presenting to the office with right colon adenocarcinoma. Patient had colonoscopy and subsequent biopsy that has since been proven to be adenocarcinoma. Given these findings, a long discussion was had with the patient and her family regarding surgical intervention. The patient wishes to proceed with right colectomy at this time. Findings Large tumor in the right colon, cecum Description of Procedure The patient was taken to the operating room and placed in the supine position. After adequate induction of general anesthesia, the patient was prepped and draped in the normal sterile fashion. A time-out was then done to verify the patient's identity, as well as the procedure being performed. A 5 mm incision was made at reza's point and a Veress needle was placed into the peritoneal cavity. CO2 gas was then insufflated. After adequate pneumoperitoneum was achieved, the Veress needle was removed and a 5 mm Optiview trocar was placed under direct visualization. Once noted to be in the abdominal cavity the trocar was removed and the laparoscopic was placed this site. Direct visualization, a 12 mm port was placed in the left upper abdomen, a 8 mm port was placed in the left mid abdomen, a 8 mm port was placed in the left lower abdomen, and finally a 8 mm certified ophthalmic assistant port was placed in the left upper abdomen. I then changed the initial 5 mm port to a 8 mm robotic port site under direct visualization. At this point, I used the laparoscoped to examine the abdomen. There was noted to be a tumor in the cecum that was tethered to the right anterior abdominal wall. I was able to sweep the small bowel out of the way. The omentum was brought up over the transverse colon. Once these maneuvers were complete, the robot was docked to the port sites. I then went to the robotic console to begin the robotic portion of the case. I was able to gain access into the right colonic mesentery. Was able to visualize the duodenum and this was swept posteriorly out of the operative field. I then identified the ileocolic vessels and transected the vessels with the vessel sealer device. I then continued my medial to lateral dissection freeing up the mesentery of the right colon off the underlying retroperitoneal. This medial dissection was continued until I was able to visualize the liver in the right upper quadrant. I then began the lateral dissection by taking the omentum off the proximal transverse colon and continuing this dissection plane around the hepatic flexure. I then continued along the right colon taking down the white line of Toldt and connecting this with our medial dissection plane. Finally, I finished the dissection by taking down the ileocolic attachments including the appendix. Once the right colon was completely mobilized and free I began to pick the areas of our resection. ICG was injected by Anesthesia and under firefly visualization I was able to identify the vascular adequacy of our anticipated transection margins. Once these margins were confirmed, I 1st transected the ileum with a 60 surefire stapler. This was approximately 5 cm from the ileocolic valve. Next I transected the proximal transverse colon again having confirmed good perfusion to the remaining colon. The specimen was then placed up over the liver for anticipated extraction later in the case. At this point, I completed a isoperistaltic, intracorporeal ileocolic anastomosis. This was done using a 60 mm stapler as the common channel. I then closed the common enterotomy using a 3-0 V lock suture in a running fashion in 2 layers. The 1st layer was a full-thickness layer between the ileocolic anastomosis, the 2nd layer was Lembert sutures imbricati
--- NOTE | 2022-07-31 11:28 | SUR.OPER ---
griffin secure to right thigh
--- NOTE | 2022-07-31 12:35 | ADMGEN ---
This patient, Sowmya Copeland, was admitted to 2 Medical Room 254-01. Patient/family oriented to hospital policies and general routines including ID bracelet, bed and alarms, visiting hours, pain management, procedures, bathroom and other care routines, personal items, smoking policy, room service/diet, and visiting hours. Information on how to activate the Rapid Response Team has been discussed. Patient/Family are encouraged to report perceived risks to care and to ask questions if they do not understand what they are told or what they should do.
[2022-07-31] MEDS: LACTATED RINGERS 1,000 ML 100 ML IV CONT ×2 (13:18→23:59)
[2022-07-31] MEDS: ONDANSETRON INJ 4 MG/2 ML VIAL IV PUSH ×2 (13:19→18:06)
[2022-07-31] MEDS: ceFAZolin 1 GM/NS 50 ML 1 GM/50 ML BAG IVPB ×2 (15:40→23:59)
[2022-07-31] MEDS: HYDROcodone/acetaminophen (*CRX) 5-325 MG TABLET 1 TAB PO (20:14)
[2022-08-01] VITALS (8 sets, daily range): BP systolic 110–145; BP diastolic 39–64; PULSE 71–91; RESP 16–18; TEMP 36.3–36.7; O2SAT 91–95
[2022-08-01] MEDS: MORPHINE SULFATE (*CRX) 4 MG/ML INJ IV PUSH ×2 (00:05→04:06)
[2022-08-01 05:43] LABS: Basophils Percent Auto 0.3 % (0.2-1.2); Hematocrit 34.1 % (37.0-47.0); Hemoglobin 10.4 g/dL (12.0-15.0); Immature Granulocyte Absolute 0.04 K/mm3 (0.00-0.031); Immature Granulocyte Percent A 0.4 % (0-0.5); Lymphocytes Absolute Auto 0.88 K/mm3 (0.9-3.2); Lymphocytes Percent Auto 8.3 % (18.3-44.2); Mean Corpuscular HGB Conc 30.5 g/dl (32-36); Mean Corpuscular Volume 85.3 fl (80-100); Mean Platelet Volume 9.8 fl (7.4-10.4); Monocytes Absolute Auto 0.9 K/mm3 (0.1-0.6); Monocytes Percent Auto 8.6 % (2.6-8.5); Neutrophils Absolute Auto 8.7 K/mm3 (1.3-6.7); Neutrophils Percent Auto 82.4 % (45.5-73.1); Platelet Count Result 246 k/mm3 (150-375); Red Cell Distribution Width 17.7 % (11.5-14.5); White Blood Count 10.5 K/mm3 (4.5-10.0)
[2022-08-01 05:56] LABS: Anion Gap 6 mmol/L (8-16); Blood Urea Nitrogen 7 mg/dL (7-17); Calcium 7.9 mg/dL (8.4-10.2); Carbon Dioxide 27 mmol/L (22-30); Chloride 99 mmol/L (98-107); Estimated Glomerular Filt Rate > 60; Glucose 117 mg/dL (65-110); Potassium 4.1 mmol/L (3.4-5.0); Sodium 132 mmol/L (137-145)
[2022-08-01] MEDS: HYDROcodone/acetaminophen (*CRX) 5-325 MG TABLET 1 TAB PO ×3 (07:31→22:58)
[2022-08-01] MEDS: ENOXAPARIN 40 MG/0.4 ML SYRINGE SUB-Q (08:12)
[2022-08-01] MEDS: PANTOPRAZOLE 40 MG TABLET PO (08:12)
[2022-08-01] MEDS: ONDANSETRON INJ 4 MG/2 ML VIAL IV PUSH (09:22)
--- NOTE | 2022-08-01 09:41 | WPDANESPN ---
Anes - Prog Note Post-Op Date/Time: 08/01/22 09:41 Cardiovascular status: normal Respiratory status: normal Airway patency: baseline Mental status: baseline Post-Op hydration status: normal Vital Signs: Last Vital Signs Temp 97.8 F 08/01/22 05:07 Pulse 87 08/01/22 05:07 Resp 18 08/01/22 05:07 BP 113/41 L 08/01/22 05:07 Pulse Ox 91 08/01/22 08:27 O2 Del Method Nasal Cannula 08/01/22 08:27 O2 Flow Rate 1 08/01/22 08:27 Pain Score (VAS): 3 I/O: Intake & Output 07/31/22 08/01/22 08/01/22 23:59 07:59 15:59 Intake Total 2670 Output Total 280 1999 Balance 2389 -1999 Laboratory Tests 08/01/22 05:23 08/01/22 05:23 07/25/22 08/01/22 10:40 05:23 WBC 10.5 H RBC 4.00 L Hgb 10.4 L Hct 34.1 L MCV 85.3 MCH 26.0 MCHC 30.5 L RDW 17.7 H Plt Count 246 MPV 9.8 Immature Gran % (Auto) 0.4 Neut % (Auto) 82.4 H Lymph % (Auto) 8.3 L [place] % (Auto) 8.6 H Eos % (Auto) 0.0 Baso % (Auto) 0.3 Lymph # (Auto) 0.88 L [place] # (Auto) 0.9 H Eos # (Auto) 0.0 Baso # (Auto) 0.0 Abs Immat Gran (auto) 0.04 H Absolute Neuts (auto) 8.7 H Absolute Nucleated RBC 0.0 Nucleated RBC % 0.0 Sodium 132 L Potassium 4.1 Chloride 99 Carbon Dioxide 27 Anion Gap 6 L BUN 7 D Creatinine 0.90 Estim Creat Clear Calc Not Reportable Estimated GFR > 60 Glucose 117 H Calcium 7.9 L Blood Type TNP Antibody Screen TNP Post-procedural complaints: nausea Patient Feedback: Patient satisfied with anesthetic care.
[2022-08-01] MEDS: FAMOTIDINE 20 MG TABLET 40 MG PO (11:35)
[2022-08-01] MEDS: LOSARTAN POTASSIUM 100 MG TABLET PO (11:35)
[2022-08-01] MEDS: hydroCHLOROthiazide 12.5 MG CAPSULE PO (11:35)
[2022-08-01] MEDS: CHOLECALCIFEROL 1,000 UNITS TABLET 1000 UNITS PO (11:35)
[2022-08-01] MEDS: FERROUS GLUCONATE 324 MG TABLET PO (11:35)
--- NOTE | 2022-08-01 15:44 | PM.PNGS ---
Progress Note: A&P Assessment and Plan (1) Adenocarcinoma of colon: Code(s): C18.9 - Malignant neoplasm of colon, unspecified Status: Acute Assessment and Plan: cont routine postop care, ADAT, OOB/IS, await path Subjective Subjective Date/Time Seen: 08/01/22 15:44 Interval history: feels ok, moderate incisional pain, some nausea Review of Systems Review of Systems: All systems reviewed & are unremarkable except as noted in HPI and below Exam Const: General: cooperative, comfortable and no acute distress Resp: Auscultation: clear to auscultation bilaterally Cardio: Rate: regular rate Rhythm: regular rhythm GI: Inspection: normal to inspection, distended and incision GI Palp: Yes abdominal tenderness, Yes Soft to palpation, Yes Tenderness to palpation present (GI), No Guarding due to palpation present (GI) and No Rigid due to palpation Other: incisions C/D/I Objective Data Vital Signs Vital Signs: Vital Signs - 24 hr 07/31/22 18:20 07/31/22 19:38 07/31/22 20:00 Temperature 36.4 C 36.4 C L Pulse Rate 64 73 Respiratory Rate 16 20 Blood Pressure 143/58 H 139/48 L Pulse Oximetry 95 100 Oxygen Delivery Room Air Oxygen Flow Rate 08/01/22 01:08 08/01/22 05:07 08/01/22 08:27 Temperature 36.6 C 36.6 C Pulse Rate 91 87 Respiratory Rate 18 18 Blood Pressure 123/64 113/41 L Pulse Oximetry 92 95 91 Oxygen Delivery Nasal Cannula Oxygen Flow Rate 1 08/01/22 08:16 08/01/22 11:24 08/01/22 14:20 Temperature 36.5 C 36.3 C L Pulse Rate 86 71 Respiratory Rate 18 16 Blood Pressure 145/48 H 118/48 L Pulse Oximetry 91 93 93 Oxygen Delivery Nasal Cannula Oxygen Flow Rate 1 08/01/22 14:00 Temperature Pulse Rate Respiratory Rate Blood Pressure Pulse Oximetry 95 Oxygen Delivery Room Air Oxygen Flow Rate Intake/Output Intake/Output: Intake & Output 07/29/22 07/30/22 07/31/22 08/01/22 23:59 23:59 23:59 23:59 Intake Total 3750 1600 Output Total 310 2600 Balance 3440 -1000 Meds/Results Medications: Active Medications Generic Name Dose Route Start Last Admin Trade Name Freq PRN Reason Stop Dose Admin Acetaminophen 500 mg 07/31/22 11:23 Acetaminophen 500 Mg Tablet PO Q6H PRN Mild Pain (1-3) or Fever Hydrocodone Bitart/Acetaminophen 1 tab 07/31/22 11:23 08/01/22 13:57 Hydrocodone/Acetaminophen (*Crx) 5-325 Mg Tablet PO 1 tab Q4H PRN Administration Pain Rated 4-6 Ascorbic Acid 500 mg 08/01/22 21:00 Ascorbic Acid 500 Mg Tablet PO HS [facility] Calcium Carbonate 250 mg 08/01/22 21:00 Calcium Carbonate (Oscal) 250 Mg Tablet PO HS [facility] Cyanocobalamin 250 mcg 08/01/22 21:00 Cyanocobalamin 250 Mcg Tablet PO HS [facility] Enoxaparin Sodium 40 mg 08/01/22 09:00 08/01/22 08:12 Enoxaparin 40 Mg/0.4 Ml Syringe SUB-Q 40 mg DAILY LIBORIO Administration Famotidine 40 mg 08/01/22 10:20 08/01/22 11:35 Famotidine 20 Mg Tablet PO 40 mg DAILY LIBORIO Administration Ferrous Gluconate 324 mg 08/01/22 10:30 08/01/22 11:35 Ferrous Gluconate 324 Mg Tablet PO 324 mg DAILY@0800 LIBORIO Administration Hydrochlorothiazide 12.5 mg 08/01/22 10:19 08/01/22 11:35 Hydrochlorothiazide 12.5 Mg Capsule PO 12.5 mg QAM LIBORIO Administration Ibuprofen 400 mg/ Sodium 104 mls @ 208 mls/hr 07/31/22 11:23 Chloride IVPB Q6H PRN Pain Rated 1-3 Losartan Potassium 100 mg 08/01/22 10:20 08/01/22 11:35 Losartan Potassium 100 Mg Tablet PO 100 mg DAILY LIBORIO Administration Montelukast Sodium 10 mg 08/01/22 21:00 Montelukast Sodium 10 Mg Tablet PO HS [facility] Morphine Sulfate 2 mg 07/31/22 11:23 Morphine Sulfate (*Crx) 2 Mg/Ml Inj IV PUSH Q2H PRN Pain Rated 4-6 Morphine Sulfate 4 mg 07/31/22 11:23 08/01/22 04:06 Morphine Sulfate (*Crx) 4 Mg/Ml Inj IV PUSH 4 mg Q2H PRN Administration Pain Rated 7-10 Naloxone HCl 0.1 mg 0
[2022-08-01] MEDS: RALOXIFENE HCL (*CHEMO) 60 MG TABLET PO (20:40)
[2022-08-01] MEDS: CALCIUM CARBONATE (OSCAL) 250 MG TABLET PO (20:40)
[2022-08-01] MEDS: CYANOCOBALAMIN 250 MCG TABLET PO (20:41)
[2022-08-01] MEDS: MONTELUKAST SODIUM 10 MG TABLET PO (20:41)
[2022-08-01] MEDS: ASCORBIC ACID 500 MG TABLET PO (20:41)
[2022-08-02] MEDS: CHOLECALCIFEROL 1,000 UNITS TABLET 1000 UNITS PO (08:10)
[2022-08-02] MEDS: FERROUS GLUCONATE 324 MG TABLET PO (08:10)
[2022-08-02] MEDS: FAMOTIDINE 20 MG TABLET 40 MG PO (08:11)
[2022-08-02] MEDS: ENOXAPARIN 40 MG/0.4 ML SYRINGE SUB-Q (08:11)
[2022-08-02] MEDS: hydroCHLOROthiazide 12.5 MG CAPSULE PO (08:12)
[2022-08-02] MEDS: PANTOPRAZOLE 40 MG TABLET PO (08:12)
[2022-08-02] MEDS: LOSARTAN POTASSIUM 100 MG TABLET PO (08:12)
[2022-08-02] MEDS: HYDROcodone/acetaminophen (*CRX) 5-325 MG TABLET 1 TAB PO (11:22)
--- NOTE | 2022-08-02 13:30 | PM.DS ---
DS: Admitting Diagnosis Discharge Date 08/02/2022 Admitting Diagnosis Right colon adenocarcinoma DS: Discharge Diagnosis Discharge Diagnosis (1) Adenocarcinoma of colon: Code(s): C18.9 - Malignant neoplasm of colon, unspecified Status: Acute Assessment and Plan: status post right colectomy, continue routine postoperative care, await pathology, follow-up 2 weeks DS: Summary Hospital Course Reason for hospitalization: right colon adenocarcinoma Hospital Course: The the patient is a 76-year-old female initially presenting to my office biopsy proven right colon adenocarcinoma. The patient was taken to the operating room on 07/31 and robotic assisted right hemicolectomy was performed, please see full operative report for details of that procedure. Postoperatively, the patient did well and was transferred to the surgical floor. On postoperative day 1., the patient was tolerating a clear diet and was up and ambulating without difficulty. Her pain was well controlled with p.o. analgesia. We were able to remove her Mcdonald at this time and her diet was advanced. The patient did have some nausea controlled with Zofran. On postoperative day 2., the patient reports that she is tolerating a diet and her pain is well controlled. She has been up and ambulating without any issue. She will be discharged at this time with p.o. analgesia, Colace, Zofran. Her path is still pending. I will follow up with her in 2 weeks. Status at Discharge Functional status at discharge: independent ambulation Overall status at discharge: patient is progressing back to baseline Time Spent with Patient Time attestation: Total time spent providing and/or coordinating discharge services: Time spent: Less than 30 minutes Exam Const: General: cooperative, comfortable and no acute distress Resp: Auscultation: clear to auscultation bilaterally Cardio: Rate: regular rate Rhythm: regular rhythm GI: Inspection: normal to inspection, distended and incision GI Palp: Yes abdominal tenderness, Yes Soft to palpation, Yes Tenderness to palpation present (GI), No Guarding due to palpation present (GI) and No Rigid due to palpation DS: Data Data Completed and Pending Pending studies at discharge: Pending at discharge 07/31/22 11:05 Surgical [PTH] Routine Discharge Plan Discharge Attending physician on discharge: Melanie Araujo Discharging Clinician: Melanie Araujo Anticipated Discharge Date/Time: 08/02/22 13:25 Patient Disposition: Home, Self-Care Activity: may shower Diet: as tolerated Wound Care Instructions: incision open to air Patient Instructions: Antibiotic Form Stand Alone Forms: General Discharge Information Follow-up/Referrals: Melanie Araujo MD [Physician] - 2 Weeks Discharge Medications: New hydrocodone-acetaminophen 7.5-325 mg tablet 1 tablet PO Q6H PRN (Reason: pain) Qty: 30 0RF docusate sodium [Colace] 100 mg capsule 100 mg PO BID Qty: 30 0RF Continued raloxifene 60 mg tablet 60 mg PO DAILY Rx Instructions: HS montelukast 10 mg tablet 10 mg PO DAILY Rx Instructions: HS losartan 100 mg tablet 100 mg PO DAILY famotidine 40 mg tablet 40 mg PO DAILY ferrous gluconate 324 mg PO DAILY hydrochlorothiazide 12.5 mg tablet 12.5 mg PO QAM cyanocobalamin (vitamin B-12) [Vitamin B-12] 500 mcg Tablet 250 mcg PO DAILY Rx Instructions: HS ascorbic acid (vitamin C) [Vitamin C] 500 mg Tablet,Chewable 500 mg PO DAILY Rx Instructions: HS cholecalciferol (vitamin D3) [Vitamin D3] 25 mcg (1,000 unit) Capsule 25 mcg PO DAILY calcium 300 mg Tablet,Chewable 300 mg PO DAILY Rx Instructions: HS Date of admission: 07/31/22 11:23 Primary Care Provider: Ben Crain Admitting Provider: Melanie Araujo Attending physician on admission: Melanie Araujo Condition: Stable
== END 2022-08-02 15:00 | disposition home or self-care (01) | DRG 331 ==
LOC: ANH2MED 12:27
PROVIDERS: Admitting Provider Surgery; PCP Internal Medicine; Visit Provider Surgery
PROC: 0DTF4ZZ Resection of Right Large Intestine, Percutaneous Endoscopic Approach (ICD-10-PCS; principal; 2022-07-31 07:30)
DX: C18.9 Malignant neoplasm of colon, unspecified (principal); I10 Essential (primary) hypertension; D64.9 Anemia, unspecified
CPT/HCPCS: 36415; 80048; 85025; 88309; A9270; C1729; C9290; J0690; J1100; J1170; J1650; J1800; J1836; J1885; J2270; J2370; J2405; J3010; J7030; J7120

== ENCOUNTER 2022-08-21 11:40 | Outpatient (CLI) | payer MEDICARE, SELFPAY ==
[2022-08-21 11:54] LABS: Basophils Absolute Auto 0.04 K/mm3 (0.00-0.10); Basophils Percent Auto 0.6 % (0.0-1.0); Eosinophils Absolute Auto 0.13 K/mm3 (0.02-0.50); Eosinophils Percent Auto 1.9 % (1.0-6.0); Hematocrit 37.1 % (35.0-42.0); Hemoglobin 11.7 g/dL (11.7-13.8); Immature Granulocyte Absolute 0.04 K/mm3 (0.00-0.00); Immature Granulocyte Percent A 0.6 % (0.0-0.0); Immature Platelet Fraction Pct 1.3 % (1.0-7.0); Lymphocytes Absolute Auto 0.92 K/mm3 (1.10-4.50); Lymphocytes Percent Auto 13.7 % (18.0-42.0); Mean Corpuscular HGB Conc 31.5 g/dL (32.0-36.0); Mean Corpuscular Hemoglobin 26.7 pg (27.0-31.0); Mean Corpuscular Volume 84.7 fL (78.0-102.0); Mean Platelet Volume 9.1 fl (9.2-11.8); Monocytes Absolute Auto 0.46 K/mm3 (0.10-0.90); Monocytes Percent Auto 6.8 % (2.0-11.0); Neutrophils Absolute Auto 5.1 K/mm3 (1.7-7.2); Neutrophils Percent Auto 76.4 % (50.0-70.0); Platelet Count Result 524 K/mm3 (150-420); Red Blood Count 4.38 M/mm3 (4.20-5.40); White Blood Count 6.7 K/mm3 (4.8-10.8)
[2022-08-21 12:39] LABS: Alanine Aminotransferase 22 U/L (14-59); Albumin Level 3.6 g/dL (3.4-5.0); Alkaline Phosphatase 242 U/L (46-116); Anion Gap 9 mmol/L (8-16); Aspartate Amino Transferase 11 U/L (15-37); Bilirubin,Total 0.3 mg/dL (0.00-1.00); Blood Urea Nitrogen 15 mg/dL (7-18); Calcium 9.6 mg/dL (8.5-10.1); Carbon Dioxide 28 mmol/L (21-32); Chloride 104 mmol/L (98-108); Estimated Glomerular Filt Rate 55; Glucose 102 mg/dL (70-99); Osmolality Calculated 292 mOsm/kg (285-295); Potassium 4.9 mmol/L (3.5-5.1); Sodium 141 mmol/L (136-145); Total Protein 7.4 g/dL (6.4-8.2)
[2022-08-25 07:27] LABS: Carcinoembryonic Antigen 2.6 ng/mL (0.0-2.4)
== END 2022-08-21 11:41 | disposition home or self-care (01) ==
LOC: CHSLAB 11:42
PROVIDERS: PCP Internal Medicine; Visit Provider Internal Medicine
DX: C18.9 Malignant neoplasm of colon, unspecified (principal); D64.9 Anemia, unspecified
CPT/HCPCS: 36415; 80053; 82378; 85025; 85055

== ENCOUNTER 2022-08-29 13:31 | Outpatient (CLI) | payer MEDICARE, SELFPAY ==
--- NOTE | ~2022-08-29 | PE_ITS ---
EXAMINATION: PET skull to mid thigh DATE: 08/29/2022 15:29 INDICATION: Ligament neoplasm of the descending colon TECHNIQUE: Blood glucose level was 111 mg/dL. 9.614 mCi of 18-fluorodeoxyglucose (18-FDG) was adminis tered i.v. Low dose computed tomography (CT) images were acquired from the base of the brain to the p roximal thighs for attenuation correction and anatomic localization. Positron emission tomography (PE T) images were acquired in the same distribution beginning 60 minutes after injection. Images includi ng fused PET/CT images were reconstructed in axial, coronal, and sagittal planes. Automated exposure control technique was employed. The dose-length product was 489.02mGy-cm. COMPARISON: CT abdomen and pelvis dated 07/12/2022 FINDINGS: Head/neck: There is symmetric increased activity in the oral cavity, nasal mucosa and the nodular mucosal thicke zeeshan at the right maxillary sinus, submandibular glands, laryngeal muscles and ocular muscles without CT correlate, likely physiologic. No pathologically enlarged cervical lymphadenopathy or suspicious foci of increased FDG uptake in the visualized head or neck. Chest: 1.3 cm deposit of subpleural fat at the lateral margin of the right major fissure. No suspicious pulm onary nodules, pneumonia, pulmonary edema or pleural effusion. Heart size is normal. No pericardial e ffusion. Thoracic aorta is normal in caliber. No pathologically enlarged or FDG avid thoracic lymphad enopathy. Moderate-sized sliding-type hiatal hernia. Abdomen/pelvis/proximal thighs: Physiologic renal accumulation and excretion of FDG activity in the kidneys, bladder and along portio ns of ureters. Again seen are multiple hypodense hepatic cysts the 2 largest in the left hepatic lobe with corresponding photopenic defects on PET imaging. Otherwise normal degree and heterogenous pattern of increased uptake throughout the liver without a dominant FDG avid lesion. Calcified gallstones within the otherwise normal-appearing gallbladder. The pancreas, spleen and bilateral adrenal glands are normal. Postoperative change of interval partial c olectomy with resection of the previous noted cecal mass and a right lower quadrant ileocolic anastom osis. There is a rim of peripheral increased FDG uptake surrounding a 5.6 x 4.8 x 4.1 cm photopenic r egion of fat attenuation, new since the prior study and consistent with omental infarct likely second misti to the intervening surgery. Mild to moderate uptake scattered throughout the bowels without radio logic correlate, also likely physiologic. There are multiple scattered diverticula along the descendi ng and sigmoid colon without adjacent inflammatory stranding to suggest diverticulitis. No bowel obst ruction. Additional photopenic defect associated with a 3.7 cm right adnexal cyst. Uterus and left ad nexa are unremarkable. No free intraperitoneal gas or fluid. No other abnormal foci of increased FDG uptake or pathologically enlarged lymphadenopathy in the abdomen, pelvis or proximal thighs. Musculoskeletal: Mild S-shaped thoracolumbar scoliosis. Severe cervical and lumbar spondylosis. Bone islands without F DG uptake at the left innominate bone. No suspicious lytic, blastic or FDG avid bone lesions identifi ed. IMPRESSION: 1. Interval right hemicolectomy with resection of prior cecal mass. No lesion suspicious for residual or metastatic disease. 2. FDG uptake at the periphery of a 5.6 cm photopenic region of fat attenuation consistent with oment al infarct/fat necrosis likely secondary to the prior surgery. 3. Cholelithiasis. 4. Diverticulosis. Reviewed, dictated and finalized at location A. IMPRESSION: 1. Interval right hemicolectomy with resection of prior cecal mass. No lesion s uspicious for residual or metastatic diseas
[2022-08-29 13:58] LABS: Glucose Point of Care 111 mg/dl (65-105)
== END 2022-08-29 13:32 | disposition home or self-care (01) ==
PROVIDERS: PCP Internal Medicine; Visit Provider Internal Medicine Hematology & Oncology
DX: C18.6 Malignant neoplasm of descending colon (principal); K80.20 Calculus of gallbladder without cholecystitis without obstruction; K57.30 Diverticulosis of large intestine without perforation or abscess without bleeding
CPT/HCPCS: 78815; A9552

== ENCOUNTER 2022-09-15 11:35 | Outpatient (CLI) | payer MEDICARE, SELFPAY ==
[2022-09-15 12:11] LABS: Prothrombin Time 13.6 Seconds (11.1-14.7)
[2022-09-15 12:12] LABS: Partial Thromboplastin Time 30.1 SECONDS (22.3-36.8)
== END 2022-09-15 11:36 | disposition home or self-care (01) ==
PROVIDERS: PCP Internal Medicine; Visit Provider Surgery
DX: C18.9 Malignant neoplasm of colon, unspecified (principal); Z01.818 Encounter for other preprocedural examination
CPT/HCPCS: 36415; 85610; 85730

== ENCOUNTER 2022-09-18 01:36 | Day surgery (SDC) | payer MEDICARE, SELFPAY ==
--- NOTE | 2022-09-13 15:40 | PC.NURSE ---
Report to the Outpatient Waiting Room, entrance under the green pavilion located off [facility], at time _1130 on date _09/18/22 . Planned Procedure Time: _1330 . Time changes happen often and if your time is changed the preop area will call you the afternoon before. - You and your visitor will be asked to self-screen and do not enter if you have any COVID symptoms. - A mask is optional within the hospital at this time. Patients may have clear liquids (water, carbonated beverages, clear teas, apple juice) until 3 hours prior to surgery with a maximum of 20 ounces. - No food from midnight until time of surgery - Infants may have breast milk until 4 hours before surgery, infant formula 6 hours prior to surgery. - Children will be allowed to drink immediately following surgery. If applicable, please bring a bottle or sippy cup to assist with drinking. Juice, water, soda, and popsicles are readily available. For infants on formula, please bring formula the day of surgery. Pacifiers are allowed. Take the following medications with a SIP of water the morning of surgery: ____NONE DO NOT STOP ANY OF YOUR OTHER PRESCRIPTION MEDICATIONS PRIOR TO SURGERY ?EXCEPT THE FOLLOWING Medications to discontinue per physician ____ALL VITAMINS AND SUPPLEMENTS 3 DAYS PRE OP.LAST DOSE 09/14/22 Please no make-up, nail prydeinig, hairspray, perfume, deodorant, or body powder the day of surgery. No jewelry (including any body piercings) or valuables the day of surgery, leave them at home. Please take a shower or bath the night before, or the morning of, surgery with an antibacterial soap. Wear comfortable, loose fitting clothing. Children are encouraged to wear pajamas. - Jewelry must be removed prior to entering the operating room. Rings and piercings that are not removed may be cut off. - The hospital will not accept responsibility for valuables. - Please leave all valuables, including medications, at home the day of surgery. If you are going home after surgery, a licensed concrete mixing truck driver must drive you home. - NO public transportation without another adult if you receive anesthesia. - We recommend that an adult stay with you for 24 hours following discharge. - We also recommend that you do not drive, make important decision, drink alcoholic beverages, or take any drugs that were not prescribed by your health care provider for at least 24 hours after your discharge time. For Pediatric surgeries, we recommend two adults accompany the child home. Follow any additional instructions given to you from your surgeon. If you or anyone in your household have experienced Covid symptoms in the past week, please notify your surgeon or the nurse liaison at the phone number below for possible testing. Telephone instructions given to ___PATIENT and asked if any additional questions and then verbalized understanding. Patient advised to call surgeon office or pre surgery nurse liaison [phone] if any additional questions.
[2022-09-13 15:50] VITALS: BMI 24.4
--- NOTE | ~2022-09-18 | XR_ITS ---
EXAMINATION: XR chest port-a-cath/central INDICATION: Port-A-Cath insertion TECHNIQUE: Portable AP chest at 1319 hours COMPARISON: 03/04/2020 FINDINGS: A left subclavian Port-A-Cath has been inserted which ends with its tip in the proximal sup erior vena cava. No pneumothorax is identified. The lungs are free of acute opacities. There is no pl eural effusion. The cardiomediastinal silhouette is normal. IMPRESSION: 1. Left subclavian Port-A-Cath ending with its tip in the proximal superior vena cava. No pneumothora x. Reviewed, dictated and finalized at location B. IMPRESSION: 1. Left subclavian Port-A-Cath ending with its tip in the proximal superior elizabeth a cava. No pneumothorax.
--- NOTE | ~2022-09-18 | XR_ITS ---
EXAMINATION: XR fl guide central line place DATE: 09/18/2022 13:09 INDICATION: Port placement. TECHNIQUE: 3 intraoperative fluoroscopic views of the chest were obtained. I was not present. Fluoros copy exposure time was 13 seconds. COMPARISON: None. FINDINGS: There is a left subclavian port with tip at superior cavoatrial junction. IMPRESSION: 1. Port tip at superior cavoatrial junction. Reviewed, dictated and finalized at location A.
[2022-09-18] MEDS: LACTATED RINGERS 1,000 ML 30 ML IV CONT (11:55)
--- NOTE | 2022-09-18 12:02 | PM.IMHP ---
H&P: HPI History of Present Illness Date/Time: 09/18/22 12:02 Chief Complaint: colon cancer Narrative: Pt is a 76 y/o F c R sided colon cancer s/p R hemicolectomy presenting for VAD placement for adjuvant treatment. Pt had T4 disease c no evidence of metastatic dz. Pt had PET confirming those findings. Oncology has recommended adjuvant chemotherapy. Pt is R handed and denies previous central venous catheterization. Review of Systems Review of Systems: All systems reviewed & are unremarkable except as noted in HPI and below PMFSH Past Medical History Medical History Anemia Hypertension Surgical History Surgical History H/O sinus surgery History of delivery History of tonsillectomy S/P right colectomy Robotic assisted right colectomy on 07/31/22 Social History Social History Smoking status: Never smoker Alcohol intake: current Alcohol use details: 1-2 drinks a year Substance use: never Substance use type: does not use Lack of Transportation: No Lack of Food: Never True Current Housing: I Have Housing Concerned About Future Housing: No Difficulty Paying Gas/Electric Bills: No Difficulty Paying for Meds: No Currently Unemployed: No Education: High School Diploma/GED Difficulty w/ Childcare or Family Care: No Living arrangements: with family Occupation/Education: retired Additional occupation/education comments: 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 [employer] Spiritual care concerns: No Meds Home Medications and Allergies Home Medications Medication Instructions Recorded Confirmed Type losartan 100 mg tablet 100 mg PO DAILY 05/16/22 09/13/22 History montelukast 10 mg tablet 10 mg PO HS 05/16/22 09/13/22 History raloxifene 60 mg tablet 60 mg PO HS 05/16/22 09/13/22 History famotidine 40 mg tablet 40 mg PO DAILY 06/12/22 09/13/22 History ascorbic acid (vitamin C) 500 mg 500 mg PO DAILY 07/25/22 09/13/22 History chewable tablet (Vitamin C) calcium 300 mg chewable tablet 300 mg PO DAILY 07/25/22 09/13/22 History cholecalciferol (vitamin D3) 25 25 mcg PO DAILY 07/25/22 09/13/22 History mcg (1,000 unit) capsule (Vitamin D3) cyanocobalamin (vitamin B-12) 500 250 mcg PO DAILY 07/25/22 09/13/22 History mcg tablet (Vitamin B-12) hydrochlorothiazide 12.5 mg tablet 12.5 mg PO QAM 07/25/22 09/13/22 History hydrocodone 7.5 mg-acetaminophen 1 tablet PO Q6H PRN pain #30 tabs 08/11/22 09/13/22 Rx 325 mg tablet budesonide 0.25 mg/2 mL suspension 0.25 mg inhalation PRN PRN 09/13/22 09/13/22 History for nebulization Shortness Of Breath Allergies Allergy/AdvReac Type Severity Reaction Status Date / Time Sulfa (Sulfonamide Allergy Unknown DOESN T Verified 09/18/22 11:42 Antibiotics) REMEMBER Exam Const: General: cooperative, comfortable and no acute distress Neck: Neck: normal visual inspection, full ROM and no lymphadenopathy Chest: Chest palpation & inspection: normal inspection of the chest Resp: Effort & Inspection: normal respiratory effort Auscultation: clear to auscultation bilaterally Cardio: Rate: regular rate Rhythm: regular rhythm GI: Inspection: normal to inspection GI Palp: No abdominal tenderness and Yes Soft to palpation Assessment and Plan Assessment and plan (1) Adenocarcinoma of colon: Code(s): C18.9 - Malignant neoplasm of colon, unspecified Status: Acute Assessment and Plan: will place VAD for access for adjuvant chemotherapy
[2022-09-18 12:03] VITALS: BP 157/77; PULSE 86; RESP 16; TEMP 36.8; O2SAT 98
--- NOTE | 2022-09-18 12:10 | WPDHPUPDATE1 ---
History and Physical Update Update Date/Time: 09/18/22 12:10 History and Physical has been reviewed, including an updated exam of the patient. There are NO changes in the patient's condition. Risks, benefits, and alternatives have been discussed and questions answered. Patient agrees to proceed with procedure.
[2022-09-18] MEDS: KETOROLAC 15 MG/ML VIAL (*BKC) IV PUSH (12:12)
--- NOTE | 2022-09-18 12:34 | WPDANESEPPF ---
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 Patient Data Age: 76 Gender: F Height: 1.47 m Weight: 54.3 kg Last Vital Signs Temp 36.8 C 09/18/22 12:03 Pulse 86 09/18/22 12:03 Resp 16 09/18/22 12:03 BP 157/77 H 09/18/22 12:03 Pulse Ox 98 09/18/22 12:03 O2 Del Method Room Air 09/18/22 12:03 Allergies Allergy/AdvReac Type Severity Reaction Status Date / Time Sulfa (Sulfonamide Allergy Unknown DOESN T Verified 09/18/22 11:42 Antibiotics) REMEMBER Home Medications Medication Instructions Recorded Confirmed Type losartan 100 mg tablet 100 mg PO DAILY 05/16/22 09/13/22 History montelukast 10 mg tablet 10 mg PO HS 05/16/22 09/13/22 History raloxifene 60 mg tablet 60 mg PO HS 05/16/22 09/13/22 History famotidine 40 mg tablet 40 mg PO DAILY 06/12/22 09/13/22 History ascorbic acid (vitamin C) 500 mg 500 mg PO DAILY 07/25/22 09/13/22 History chewable tablet (Vitamin C) calcium 300 mg chewable tablet 300 mg PO DAILY 07/25/22 09/13/22 History cholecalciferol (vitamin D3) 25 25 mcg PO DAILY 07/25/22 09/13/22 History mcg (1,000 unit) capsule (Vitamin D3) cyanocobalamin (vitamin B-12) 500 250 mcg PO DAILY 07/25/22 09/13/22 History mcg tablet (Vitamin B-12) hydrochlorothiazide 12.5 mg tablet 12.5 mg PO QAM 07/25/22 09/13/22 History hydrocodone 7.5 mg-acetaminophen 1 tablet PO Q6H PRN pain #30 tabs 08/11/22 09/13/22 Rx 325 mg tablet budesonide 0.25 mg/2 mL suspension 0.25 mg inhalation PRN PRN 09/13/22 09/13/22 History for nebulization Shortness Of Breath Patient hx anesthesia problems: post op nausea/vomiting Family hx anesthesia problems: none Results Review: All pre-operative results and documents have been reviewed as part of the pre-operative evaluation. PMFSH Past Medical History Medical History Anemia Hypertension Surgical History Surgical History H/O sinus surgery History of delivery History of tonsillectomy S/P right colectomy Robotic assisted right colectomy on 07/31/22 Social History Social History Smoking status: Never smoker Alcohol intake: current Alcohol use details: 1-2 drinks a year Substance use: never Substance use type: does not use Lack of Transportation: No Lack of Food: Never True Current Housing: I Have Housing Concerned About Future Housing: No Difficulty Paying Gas/Electric Bills: No Difficulty Paying for Meds: No Currently Unemployed: No Education: High School Diploma/GED Difficulty w/ Childcare or Family Care: No Living arrangements: with family Occupation/Education: retired Additional occupation/education comments: 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 Informed Consent: The patient's anesthetic plan and its attendant risks and benefits were discussed with the patient/family/POA. Questions were solicited and answers provided to the satisfaction of the patient/family/POA.
[2022-09-18] MEDS: ceFAZolin 2 GM/D5W 50 ML 2 GM/50 ML BAG IVPB (12:36)
[2022-09-18] MEDS: HEPARIN SODIUM 5,000 UNITS/ML VIAL 5000 UNITS IRRIGATION (12:55)
[2022-09-18] MEDS: HEPARIN SODIUM, PORCINE 10,000 UNITS/10 ML VIAL 3000 UNITS IV PUSH (12:56)
[2022-09-18] MEDS: BUPIVACAINE/EPINEPHRINE 0.25% 10 ML VIAL 20 ML INFILTRATE (12:57)
--- NOTE | 2022-09-18 13:03 | P.OP_ITS ---
Procedure Note - Detailed Date of Procedure 09/18/22 Pre-op Diagnosis colon cancer Post-op Diagnosis Same Procedure Performed placement of left subclavian venous access device under fluoroscopic guidance Surgeon Melanie Araujo MD Anesthesia MAC and Local Indications 76 y/o F c colon cancer requiring adjuvant chemotherapy Findings first stick L SCV Description of Procedure Patient was brought into the operating room and placed in the supine position. After adequate induction of mac anesthesia, the patient was prepped and draped in normal sterile fashion. Time-out was then done to verify the patient's iden tity, as well as the procedure being performed. I began by making a small incision in the left chest, I then gained access into the left subclavian vein with an 18 gauge needle. I then placed the guidewire into the vein and confirmed placement via fluoroscopic guidance. I then locally anesthetized the area in the left chest. I then enlarged the incision around the guidewire including making a subcutaneous pocket inferiorly to allow placement of the port itself. I then placed a dilating sheath over the guidewire into the left subclavian vein via sterile Seldinger technique. This was once again done and confirmed via fluoroscopic guidance. I then removed the dilator and the guidewire, now just leaving the sheath in the vein. I then fed the previously flushed catheter into the left subclavian vein under fluoroscopic guidance. At approximately 20 cm, the catheter was noted to be near the atrial caval junction. I then peeled away the sheath, now just leaving the catheter in the vein. I then was able to easily draw and flush from the catheter. The catheter was cut to fit and attached to the port itself. The port was placed into the previously made subcutaneous pocket and sutured in with 0 Ethibond suture. Final fluoroscopic view showed the termination of the catheter at the atrial caval junction with a nice smooth curvature back to the port itself. I was able to gain access to the port with a Torres needle and was able to easily draw and flush from the port. I then flushed 4 cc of a final heparin flush into the port. The incision was closed with 3 0 Vicryl suture in the subcutaneous tissue and the skin was closed with 4 O Monocryl subcuticular suture. Dermabond was then placed on wound. The patient tolerated the procedure well and will be sent to the recovery room in stable condition. Implants L SCV VAD Estimated Blood Loss 5 Drains No Packing No Pathology None sent Complications No immediate complications Condition Stable Disposition PACU [facility] Billing Surgery - Charge Forward: Surgery Billing
[2022-09-18 13:15] VITALS: BP 122/57; PULSE 80; RESP 16; O2SAT 98
[2022-09-18 13:45] VITALS: BP 139/56; PULSE 69; RESP 16
== END 2022-09-18 14:14 | disposition home or self-care (01) ==
PROVIDERS: PCP Internal Medicine; Visit Provider Surgery
PROC: (CPT 36561; principal; 2022-09-18 13:00)
DX: C18.6 Malignant neoplasm of descending colon (principal); D64.9 Anemia, unspecified; I10 Essential (primary) hypertension; Z79.891 Long term (current) use of opiate analgesic; Z79.810 Long term (current) use of selective estrogen receptor modulators (SERMs); Z85.038 Personal history of other malignant neoplasm of large intestine; Z90.49 Acquired absence of other specified parts of digestive tract
CPT/HCPCS: 36561; 77001; C1788; J0690; J1644; J1885; J2405; J2704; J3010; J7030; J7120

== ENCOUNTER 2022-10-02 09:30 | Outpatient (CLI) | payer MEDICARE, SELFPAY | END 2022-10-02 09:31 | disposition home or self-care (01) | LOC: ANHLAB 09:34 | PROVIDERS: PCP Internal Medicine; Visit Provider Internal Medicine Hematology & Oncology | DX: C18.9 Malignant neoplasm of colon, unspecified (principal) | CPT/HCPCS: 81001 ==

== ENCOUNTER 2022-11-21 10:07 | Emergency (ER) | payer MEDICARE, SELFPAY ==
[2022-11-21] VITALS (13 sets, daily range): BP systolic 110–145; BP diastolic 45–91; PULSE 57–82; RESP 16–26; TEMP 36.4–36.5; O2SAT 97–100
--- NOTE | ~2022-11-21 | XR_ITS ---
Clinical Indication: Dyspnea PA and lateral views of the chest: Comparison: 09/18/2022 Findings: Left-sided Mediport remains in place. The lungs are clear, without evidence of focal consol idation or pleural effusion. Cardiomediastinal silhouette is within normal limits. Bones and soft ti ssues are unremarkable. Impression: Clear lungs. Left-sided Mediport. Reviewed, dictated and finalized at location M. Impression: Clear lungs. Left-sided Mediport.
--- NOTE | 2022-11-21 10:14 | ECG_ITS ---
Measurements Intervals [place] Rate: 64 P: 46 FL: 183 QRS: 11 QRSD: 97 T: 56 QT: 400 QTc: 415 Interpretive Statements SINUS RHYTHM LOW QRS VOLTAGE IN PRECORDIAL LEADS [QRS DEFLECTION < 1.0 mV IN CHEST LEADS] POSSIBLE RIGHT VENTRICULAR CONDUCTION DELAY [RSR (QR) IN V1/V2] COMPARED TO ECG 07/25/2022 10:49:05 NO SIGNIFICANT CHANGES Electronically Signed On 11-21-2022 15:02:23 CDT by Yulissa Walker M.D.
[2022-11-21 10:35] LABS: Basophils Percent Auto 0.3 % (0.2-1.2); Eosinophils Percent Auto 0.1 % (0-4.4); Hematocrit 39.4 % (37.0-47.0); Hemoglobin 12.3 g/dL (12.0-15.0); Immature Granulocyte Absolute 0.03 K/mm3 (0.00-0.031); Immature Granulocyte Percent A 0.3 % (0-0.5); Lymphocytes Absolute Auto 0.34 K/mm3 (0.9-3.2); Lymphocytes Percent Auto 3.9 % (18.3-44.2); Mean Corpuscular HGB Conc 31.2 g/dl (32-36); Mean Corpuscular Hemoglobin 27.8 pg (26-34); Mean Corpuscular Volume 89.1 fl (80-100); Mean Platelet Volume 9.4 fl (7.4-10.4); Monocytes Absolute Auto 0.6 K/mm3 (0.1-0.6); Neutrophils Absolute Auto 7.6 K/mm3 (1.3-6.7); Neutrophils Percent Auto 88.4 % (45.5-73.1); Platelet Count Result 244 k/mm3 (150-375); Red Blood Count 4.42 M/mm3 (4.2-5.4); Red Cell Distribution Width 20.2 % (11.5-14.5); White Blood Count 8.7 K/mm3 (4.5-10.0)
[2022-11-21 10:48] LABS: Alanine Aminotransferase 18 U/L (6-35); Albumin Level 4.2 g/dL (3.5-5.1); Alkaline Phosphatase 118 U/L (38-126); Anion Gap 8 mmol/L (8-16); Aspartate Amino Transferase 27 U/L (14-36); Bilirubin,Total 0.8 mg/dL (0.2-1.3); Blood Urea Nitrogen 15 mg/dL (7-17); Calcium 9.4 mg/dL (8.4-10.2); Carbon Dioxide 25 mmol/L (22-30); Chloride 105 mmol/L (98-107); Estimated Glomerular Filt Rate > 60; Glucose 90 mg/dL (65-110); Potassium 3.9 mmol/L (3.4-5.0); Sodium 138 mmol/L (137-145)
--- NOTE | 2022-11-21 14:53 | ED.GENADULT ---
HPI - General Adult General Chief complaint: Shortness of Breath/Dyspnea Stated complaint: SOB Time Seen by Provider: 11/21/22 11:07 History of Present Illness HPI narrative: Patient is a 76-year-old male who presents to the ER with shortness of breath. Patient had chemotherapy infusion yesterday and developed rash and shortness of breath and was given dexamethasone. This happened previously as well. She has been taking famotidine and some cetirizine at home. She has mild itching to her hands. She felt slightly more dyspneic today so she called her oncologist who told her to come to the ER for further evaluation. No coughing or wheezing. No fevers. No nausea or vomiting. Related Data Home Medications Medication Instructions Recorded Confirmed losartan 100 mg tablet 100 mg PO DAILY 05/16/22 10/30/22 montelukast 10 mg tablet 10 mg PO HS 05/16/22 10/30/22 raloxifene 60 mg tablet 60 mg PO HS 05/16/22 10/30/22 famotidine 40 mg tablet 40 mg PO DAILY 06/12/22 10/30/22 ascorbic acid (vitamin C) 500 mg 500 mg PO DAILY 07/25/22 10/30/22 chewable tablet (Vitamin C) calcium 300 mg chewable tablet 300 mg PO DAILY 07/25/22 10/30/22 cholecalciferol (vitamin D3) 25 25 mcg PO DAILY 07/25/22 10/30/22 mcg (1,000 unit) capsule (Vitamin D3) cyanocobalamin (vitamin B-12) 500 250 mcg PO DAILY 07/25/22 10/30/22 mcg tablet (Vitamin B-12) hydrochlorothiazide 12.5 mg tablet 12.5 mg PO QAM 07/25/22 10/30/22 budesonide 0.25 mg/2 mL suspension 0.25 mg inhalation PRN PRN 09/13/22 10/30/22 for nebulization Shortness Of Breath Allergies Allergy/AdvReac Type Severity Reaction Status Date / Time Sulfa (Sulfonamide Allergy Unknown DOESN T Verified 11/21/22 11:20 Antibiotics) REMEMBER Review of Systems Review of Systems: All systems reviewed & are unremarkable except as noted in HPI and below Constitutional: Constitutional: Reports no additional constitutional complaints ENT: Reports system reviewed and no additional complaints, except as documented Cardiovascular: Cardiovascular: Reports no additional cardiovascular complaints Respiratory: Respiratory: Denies cough, Reports dyspnea and Denies wheezing Gastrointestinal: Gastrointestinal: Reports no additional gastrointestinal complaints Integumentary/Breasts: Skin/Breast: Reports pruritus and Reports erythema PMFSH Past Medical History Medical History Anemia Hypertension Surgical History Surgical History H/O sinus surgery History of delivery History of tonsillectomy S/P right colectomy Robotic assisted right colectomy on 07/31/22 Social History Social History Smoking status: Never smoker Alcohol intake: current Alcohol use details: 1-2 drinks a year Substance use: never Substance use type: does not use Lack of Transportation: No Lack of Food: Never True Current Housing: I Have Housing Concerned About Future Housing: No Difficulty Paying Gas/Electric Bills: No Difficulty Paying for Meds: No Currently Unemployed: No Education: High School Diploma/GED Difficulty w/ Childcare or Family Care: No Living arrangements: with family Occupation/Education: retired Additional occupation/education comments: 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 HEAD: Normocephalic, atraumatic. EYES: PERRL and EOMI. ENT: Mucous membranes moist. CHEST: Clear to auscultation. No respiratory distress. HEART: Regular rate and rhythm. Normal peripheral pulses. EXTREMITIES: Normal range of motion. No edema. SKIN: Warm, dry. Mild erythema to the skin without hives. NEURO: Alert and oriented x3. PSYCH: Normal mood and affect Course Course Emergency Cou
== END 2022-11-21 15:12 | disposition home or self-care (01) ==
PROVIDERS: Emergency Provider Emergency Medicine; PCP Internal Medicine
DX: R06.02 Shortness of breath (principal); T45.1X5A Adverse effect of antineoplastic and immunosuppressive drugs, initial encounter; C18.9 Malignant neoplasm of colon, unspecified; I10 Essential (primary) hypertension; Z86.2 Personal history of diseases of the blood and blood-forming organs and certain disorders involving the immune mechanism; Z90.49 Acquired absence of other specified parts of digestive tract; R94.31 Abnormal electrocardiogram [ECG] [EKG]
CPT/HCPCS: 36415; 71046; 80053; 85025; 93005; 99284

== ENCOUNTER 2023-01-08 08:46 | Outpatient (CLI) | payer MEDICARE, SELFPAY ==
--- NOTE | ~2023-01-08 | CT_ITS ---
CT of the Abdomen and Pelvis: Indication: Colon cancer Technique: 2.5 mm axial scans were obtained through the abdomen and pelvis following intravenous adm inistration of 100 cc of Omnipaque 350. Dose reduction technique was used on this scan by utilizing a utomated exposure control and iterative reconstruction technique. The dose-length product (DLP) was 2 17.39 mGy-cm. COMPARISON: 07/12/2022 Findings: Scans through the lung bases are unremarkable. Small hiatal hernia present. Stable hepatic cysts are present. Calcified gallstones are present. The spleen, pancreas, adrenals an d kidneys are within normal limits. There are atherosclerotic calcifications of the aorta. No lympha denopathy. No bowel obstruction or bowel wall thickening. Wide necked, fat-containing hernia noted at the left a nterior abdominal wall region. There is evidence of prior right partial colectomy. There is an area o f fat necrosis or omental infarction adjacent to the surgical bed in the infrahepatic region.. Images through the pelvis were performed. A 3.7 cm right adnexal cyst present. No other adnexal mass seen. Urinary bladder unremarkable. No ascites. Impression: Status post interval partial right colectomy. No evidence for active malignancy or metastatic disease . 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 Wide necked, fat-containing hernia at the left anterior abdominal wall region. Cholelithiasis. 3.7 cm right adnexal cyst. Reviewed, dictated and finalized at [facility]. [employer] Impression: Status post interval partial right colectomy. No evidence for active malignancy or metastatic disease. Omental infarct/fat necrosis in the right upper quadrant adjacent to the surgic al site, in the infrahepatic region. Wide necked, fat-containing hernia at the left anterior abdominal wall region. Cholelithiasis. 3.7 cm right adnexal cyst.
[2023-01-08 09:18] LABS: Estimated Glomerular Filt Rate 54
== END 2023-01-08 08:47 | disposition home or self-care (01) ==
PROVIDERS: PCP Internal Medicine; Visit Provider Internal Medicine Hematology & Oncology
DX: C18.6 Malignant neoplasm of descending colon (principal); K80.20 Calculus of gallbladder without cholecystitis without obstruction
CPT/HCPCS: 74177; Q9967

== ENCOUNTER 2023-03-21 15:47 | Outpatient (CLI) | payer MEDICARE, SELFPAY ==
[2023-03-21 16:44] LABS: Anion Gap 9 mmol/L (8-16); Blood Urea Nitrogen 16 mg/dL (7-18); Carbon Dioxide 28 mmol/L (21-32); Chloride 104 mmol/L (98-108); Estimated Glomerular Filt Rate > 60; Glucose 95 mg/dL (70-99); Osmolality Calculated 293 mOsm/kg (285-295); Potassium 4.4 mmol/L (3.5-5.1); Sodium 141 mmol/L (136-145)
== END 2023-03-21 15:48 | disposition home or self-care (01) ==
LOC: CHSLAB 15:49
PROVIDERS: PCP Internal Medicine; Visit Provider Anesthesiology
DX: Z01.818 Encounter for other preprocedural examination (principal); Z51.81 Encounter for therapeutic drug level monitoring
CPT/HCPCS: 36415; 80048

== ENCOUNTER 2023-04-02 04:18 | Day surgery (SDC) | payer MEDICARE, SELFPAY ==
--- NOTE | 2023-03-20 15:12 | PC.NURSE ---
Report to the Outpatient Waiting Room, entrance under the green pavilion located off [facility], at time __11:30 on date __04/02/23 . Planned Procedure Time: __1:30PM . Time changes happen often and if your time is changed the preop area will call you the afternoon before. - You and your visitor will be asked to self-screen and do not enter if you have any COVID symptoms. - A mask is optional within the hospital at this time. Patients may have clear liquids (water, carbonated beverages, clear teas, apple juice) until 3 hours prior to surgery with a maximum of 20 ounces. - No food from midnight until time of surgery. Take the following medications with a SIP of water the morning of surgery: __INHALER NEEDED DO NOT STOP ANY OF YOUR OTHER PRESCRIPTION MEDICATIONS PRIOR TO SURGERY ?EXCEPT THE FOLLOWING Medications to discontinue per physician __HOLD ALL VITAMINS/SUPPLEMENTS 3 DAYS PRE-OP PER ANESTHESIA Date to take last dose___03/29/23 Please no make-up, nail nepali, hairspray, perfume, deodorant, or body powder the day of surgery. No jewelry (including any body piercings) or valuables the day of surgery, leave them at home. Please take a shower or bath the night before, or the morning of, surgery with an antibacterial soap. Wear comfortable, loose fitting clothing. - Jewelry must be removed prior to entering the operating room. Rings and piercings that are not removed may be cut off. - The hospital will not accept responsibility for valuables. - Please leave all valuables, including medications, at home the day of surgery. If you are going home after surgery, a licensed day haul or farm charter bus driver must drive you home. - NO public transportation without another adult if you receive anesthesia. - We recommend that an adult stay with you for 24 hours following discharge. - We also recommend that you do not drive, make important decision, drink alcoholic beverages, or take any drugs that were not prescribed by your health care provider for at least 24 hours after your discharge time. Follow any additional instructions given to you from your surgeon. If you or anyone in your household have experienced Covid symptoms in the past week, please notify your surgeon or the nurse liaison at the phone number below for possible testing. Telephone instructions given to ____PATE and asked if any additional questions and then verbalized understanding. Patient advised to call surgeon office or pre surgery nurse liaison [phone] if any additional questions.
--- NOTE | 2023-03-20 15:13 | PC.NURSE ---
Report to the Outpatient Waiting Room, entrance under the green pavilion located off [facility], at time __11:30AM on date __04/02/23 . Planned Procedure Time: __1:30PM . Time changes happen often and if your time is changed the preop area will call you the afternoon before. - You and your visitor will be asked to self-screen and do not enter if you have any COVID symptoms. - A mask is optional within the hospital at this time. Patients may have clear liquids (water, carbonated beverages, clear teas, apple juice) until 3 hours prior to surgery with a maximum of 20 ounces. - No food from midnight until time of surgery. Take the following medications with a SIP of water the morning of surgery: ___INHALER NEEDED DO NOT STOP ANY OF YOUR OTHER PRESCRIPTION MEDICATIONS PRIOR TO SURGERY ?EXCEPT THE FOLLOWING Medications to discontinue per physician _HOLD ALL VITAMINS/SUPPLEMENTS 3 DAYS PRE-OP PER ANESTHESIA Date to take last dose 03/29/23 Please no make-up, nail yoruba, hairspray, perfume, deodorant, or body powder the day of surgery. No jewelry (including any body piercings) or valuables the day of surgery, leave them at home. Please take a shower or bath the night before, or the morning of, surgery with an antibacterial soap. Wear comfortable, loose fitting clothing. - Jewelry must be removed prior to entering the operating room. Rings and piercings that are not removed may be cut off. - The hospital will not accept responsibility for valuables. - Please leave all valuables, including medications, at home the day of surgery. If you are going home after surgery, a licensed mobile lounge driver or operator must drive you home. - NO public transportation without another adult if you receive anesthesia. - We recommend that an adult stay with you for 24 hours following discharge. - We also recommend that you do not drive, make important decision, drink alcoholic beverages, or take any drugs that were not prescribed by your health care provider for at least 24 hours after your discharge time. Follow any additional instructions given to you from your surgeon. If you or anyone in your household have experienced Covid symptoms in the past week, please notify your surgeon or the nurse liaison at the phone number below for possible testing. Telephone instructions given to ____PATIENT and asked if any additional questions and then verbalized understanding. Patient advised to call surgeon office or pre surgery nurse liaison [phone] if any additional questions.
[2023-03-20 15:18] VITALS: BMI 25.1
[2023-04-02] MEDS: LACTATED RINGERS 1,000 ML 30 ML IV CONT (12:11)
[2023-04-02 12:13] VITALS: BP 143/50; PULSE 59; RESP 14; TEMP 37; O2SAT 100; BMI 25.0
--- NOTE | 2023-04-02 12:15 | PM.IMHP ---
H&P: HPI History of Present Illness Date/Time: 04/02/23 12:15 Chief Complaint: colon cancer Narrative: The patient is a 77-year-old female status post adjuvant therapy for colon cancer. The patient had a left subclavian venous access device placed in September of last year for access. The patient has now completed her chemotherapy and would like removal of the previously placed port. The patient denies any issues with the previously placed port. Review of Systems Review of Systems: All systems reviewed & are unremarkable except as noted in HPI and below PMFSH Past Medical History Medical History Anemia Hypertension Surgical History Surgical History H/O sinus surgery History of delivery History of tonsillectomy S/P right colectomy Robotic assisted right colectomy on 07/31/22 Social History Social History Smoking status: Never smoker Alcohol intake: current Alcohol use details: 1-2 drinks a year Substance use: never Substance use type: does not use Lack of Transportation: No Lack of Food: Never True Current Housing: I Have Housing Concerned About Future Housing: No Difficulty Paying Gas/Electric Bills: No Difficulty Paying for Meds: No Currently Unemployed: No Education: High School Diploma/GED Difficulty w/ Childcare or Family Care: No Living arrangements: with family Additional living arrangements comments: BOYFRIEND Occupation/Education: retired Additional occupation/education comments: 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 [employer] Spiritual care concerns: No Meds Home Medications and Allergies Home Medications Medication Instructions Recorded Confirmed Type losartan 100 mg tablet 100 mg PO QAM 05/16/22 03/20/23 History montelukast 10 mg tablet 10 mg PO HS 05/16/22 03/20/23 History raloxifene 60 mg tablet 60 mg PO HS 05/16/22 03/20/23 History famotidine 40 mg tablet 40 mg PO DAILY 06/12/22 03/20/23 History ascorbic acid (vitamin C) 500 mg 1,000 mg PO DAILY 07/25/22 03/20/23 History chewable tablet (Vitamin C) calcium 300 mg chewable tablet 600 mg PO DAILY 07/25/22 03/20/23 History cholecalciferol (vitamin D3) 25 25 mcg PO DAILY 07/25/22 03/20/23 History mcg (1,000 unit) capsule (Vitamin D3) cyanocobalamin (vitamin B-12) 500 250 mcg PO DAILY 07/25/22 03/20/23 History mcg tablet (Vitamin B-12) hydrochlorothiazide 12.5 mg tablet 12.5 mg PO QAM 07/25/22 03/20/23 History budesonide 0.25 mg/2 mL suspension 0.25 mg inhalation PRN PRN 09/13/22 03/20/23 History for nebulization Shortness Of Breath Allergies Allergy/AdvReac Type Severity Reaction Status Date / Time fluorouracil AdvReac Severe shortness Verified 03/22/23 08:44 of breath oxaliplatin AdvReac Severe shortness Verified 03/22/23 08:41 of breath Sulfa (Sulfonamide AdvReac Severe shortness Verified 03/22/23 08:44 Antibiotics) of breath Exam Const: General: cooperative, comfortable and no acute distress Chest: Other: L chest VAD - C/D/I Resp: Auscultation: clear to auscultation bilaterally GI: Inspection: normal to inspection Assessment and Plan Assessment and plan (1) Malignant neoplasm of descending colon: Code(s): C18.6 - Malignant neoplasm of descending colon Status: Acute Assessment and Plan: status post adjuvant therapy, will remove venous access device in the operating room
--- NOTE | 2023-04-02 12:17 | WPDHPUPDATE1 ---
History and Physical Update Update Date/Time: 04/02/23 12:17 History and Physical has been reviewed, including an updated exam of the patient. There are NO changes in the patient's condition. Risks, benefits, and alternatives have been discussed and questions answered. Patient agrees to proceed with procedure.
--- NOTE | 2023-04-02 12:45 | WPDANESEPPF ---
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 Patient Data Age: 77 Gender: F Height: 1.47 m Weight: 54.4 kg Last Vital Signs Temp 37.0 C 04/02/23 12:13 Pulse 59 L 04/02/23 12:13 Resp 14 04/02/23 12:13 BP 143/50 H 04/02/23 12:13 Pulse Ox 100 04/02/23 12:13 O2 Del Method Room Air 04/02/23 12:13 Allergies Allergy/AdvReac Type Severity Reaction Status Date / Time fluorouracil AdvReac Severe shortness Verified 03/22/23 08:44 of breath oxaliplatin AdvReac Severe shortness Verified 03/22/23 08:41 of breath Sulfa (Sulfonamide AdvReac Severe shortness Verified 03/22/23 08:44 Antibiotics) of breath Home Medications Medication Instructions Recorded Confirmed Type losartan 100 mg tablet 100 mg PO QAM 05/16/22 03/20/23 History montelukast 10 mg tablet 10 mg PO HS 05/16/22 03/20/23 History raloxifene 60 mg tablet 60 mg PO HS 05/16/22 03/20/23 History famotidine 40 mg tablet 40 mg PO DAILY 06/12/22 03/20/23 History ascorbic acid (vitamin C) 500 mg 1,000 mg PO DAILY 07/25/22 03/20/23 History chewable tablet (Vitamin C) calcium 300 mg chewable tablet 600 mg PO DAILY 07/25/22 03/20/23 History cholecalciferol (vitamin D3) 25 25 mcg PO DAILY 07/25/22 03/20/23 History mcg (1,000 unit) capsule (Vitamin D3) cyanocobalamin (vitamin B-12) 500 250 mcg PO DAILY 07/25/22 03/20/23 History mcg tablet (Vitamin B-12) hydrochlorothiazide 12.5 mg tablet 12.5 mg PO QAM 07/25/22 03/20/23 History budesonide 0.25 mg/2 mL suspension 0.25 mg inhalation PRN PRN 08/09/23 02/13/24 History for nebulization Shortness Of Breath Patient hx anesthesia problems: none Family hx anesthesia problems: none Results Review: All pre-operative results and documents have been reviewed as part of the pre-operative evaluation. PMFSH Past Medical History Medical History Anemia Hypertension Surgical History Surgical History H/O sinus surgery History of delivery History of tonsillectomy S/P right colectomy Robotic assisted right colectomy on 07/31/22 Social History Social History Smoking status: Never smoker Alcohol intake: current Alcohol use details: 1-2 drinks a year Substance use: never Substance use type: does not use Lack of Transportation: No Lack of Food: Never True Current Housing: I Have Housing Concerned About Future Housing: No Difficulty Paying Gas/Electric Bills: No Difficulty Paying for Meds: No Currently Unemployed: No Education: High School Diploma/GED Difficulty w/ Childcare or Family Care: No Living arrangements: with family Additional living arrangements comments: BOYFRIEND Occupation/Education: retired Additional occupation/education comments: 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 Informed Consent: The patient's anesthetic plan and its attendant risks and benefits were discussed with the patient/family/POA. Questions were solicited and answers provided to the satisfaction of the patient/family/POA.
[2023-04-02] MEDS: ceFAZolin 2 GM/D5W 50 ML 2 GM/50 ML BAG IVPB (13:33)
[2023-04-02 14:00] VITALS: BP 124/87; PULSE 87; RESP 16
--- NOTE | 2023-04-02 14:12 | P.OP_ITS ---
Procedure Note - Detailed Date of Procedure 04/02/23 Pre-op Diagnosis Colon cancer status post adjuvant chemotherapy Post-op Diagnosis Same Procedure Performed removal L chest VAD Surgeon Melanie Araujo MD Anesthesia MAC and Local Indications 77 y/o F s/p treatment for colon cancer. Pt had L sided VAD placed about 6 months ago. Findings LSCV VAD Description of Procedure The patient was taken to the operating room and placed in the supine position. The patient was then prepped and draped in the normal sterile fashion. A time- out was then done to verify the patient's identity, as well as the procedure being performed. I began by localizing the area of the previously placed port in the left chest. After the area was adequately anesthetized, I made an incision through the previous incision to gain access to the port in the subcutaneous tissue. I was then able to identify the port and using dissection with the Bovie cautery, I was able to free the reservoir from the subcutaneous pocket. The reservoir was being held in by 2 sutures and these were subsequently cut. I was then able to remove the reservoir from the pocket. I then removed the catheter from the left subclavian vein in full. I then held pressure at the level the left subclavian vein for approximately 5 minutes. Hemostasis was noted and I irrigated the pocket. I then closed the subcutaneous tissue with 3-0 Vicryl suture. The skin was closed with 4-0 Monocryl subcuticular suture. Dermabond was placed on the wound. The patient tolerated the procedure well and was alert and awake in the operating room postoperative. The patient will be sent to the recovery room in stable condition. Estimated Blood Loss 5 Drains No Packing No Pathology None sent Complications No immediate complications Condition Stable Disposition PACU [facility] Billing Surgery - Charge Forward: Surgery Billing
[2023-04-02 14:30] VITALS: BP 139/52; PULSE 72
== END 2023-04-02 15:03 | disposition home or self-care (01) ==
PROVIDERS: PCP Internal Medicine; Visit Provider Surgery
PROC: (CPT 36589; principal; 2023-04-02 13:30)
DX: Z45.2 Encounter for adjustment and management of vascular access device (principal); Z85.038 Personal history of other malignant neoplasm of large intestine; Z79.51 Long term (current) use of inhaled steroids; I10 Essential (primary) hypertension; Z90.49 Acquired absence of other specified parts of digestive tract
CPT/HCPCS: 36590; J0690; J2704; J7120

== ENCOUNTER 2023-07-24 09:30 | Outpatient (CLI) | payer MEDICARE, SELFPAY ==
--- NOTE | ~2023-07-24 | CT_ITS ---
CT abdomen pelvis w con Ordering provider: Pérez Quintero MD History: 77 years Female with . MALIGNANT NEOPLASM OF DESCENDING COLON . Comparison: January 08, 2023 Technique: CT abdomen and pelvis with IV and without oral contrast. Radiation reduction technique uti lized. The DLP is 278.63 mGy. Findings: VISUALIZED LOWER CHEST: Left lower lobe nodule measuring 1 x 0.5 cm. Dependent atelectatic changes. UPPER ABDOMINAL ORGANS: Liver: Multiple hypodense lesions in both lobes suggestive of tiny cysts. Gallbladder: Cholelithiasis. Spleen: Normal. Stomach/duodenum: Sliding hiatus hernia. Pancreas: Normal. Adrenals: Normal. Kidneys: Normal. PELVIC ORGANS: The bladder is underfilled with slightly irregular wall. Evaluation for cystitis advis ed. Right ovarian cyst which measures 3.1 x 2.8 cm. BOWEL AND MESENTERY: Colon: Status post right hemicolectomy. No evidence of diverticulitis or masses seen. Slight thickeni ng of the wall of the sigmoid colon which may indicate colitis. . Small Bowel: Normal. No obstruction. Peritoneum/mesentery: No free air or free fluid. No mesenteric lymphadenopathy. RETROPERITONEUM: Mild atheromatous disease of the abdominal aorta. No retroperitoneal lymphadenopat hy. MUSCULOSKELETAL: Superficial soft tissues: A fat-containing abdominal wall hernia seen in the left upper abdomen. The superficial soft tissues are normal. Bones: Age appropriate degenerative changes of the spine. Bilateral sacroiliitis. Healing fracture in the right and left inferior pubic ramus. Levoscoliosis0 IMPRESSION: 1. Multiple cysts in the liver 2. Cholelithiasis 3. Sliding hiatus hernia. 4. Abdominal wall hernia with fat content. 5. Thickening of the wall of the sigmoid colon which may indicate colitis. Reviewed, dictated and finalized at location A.
[2023-07-25 03:20] LABS: Estimated Glomerular Filt Rate 54
== END 2023-07-24 09:31 | disposition home or self-care (01) ==
LOC: ANHIMG 09:35
PROVIDERS: PCP Internal Medicine; Visit Provider Internal Medicine Hematology & Oncology
DX: C18.6 Malignant neoplasm of descending colon (principal); K76.89 Other specified diseases of liver; K80.20 Calculus of gallbladder without cholecystitis without obstruction; K44.9 Diaphragmatic hernia without obstruction or gangrene; K43.9 Ventral hernia without obstruction or gangrene
CPT/HCPCS: 74177; Q9967

== ENCOUNTER 2023-08-02 16:32 | Outpatient (CLI) | payer MEDICARE, SELFPAY ==
[2023-08-02 16:53] LABS: Basophils Absolute Auto 0.03 K/mm3 (0.00-0.10); Basophils Percent Auto 0.4 % (0.0-1.0); Eosinophils Percent Auto 5.8 % (1.0-6.0); Hematocrit 38.4 % (35.0-42.0); Hemoglobin 13.2 g/dL (11.7-13.8); Immature Granulocyte Absolute 0.03 K/mm3 (0.00-0.00); Immature Granulocyte Percent A 0.4 % (0.0-0.0); Lymphocytes Absolute Auto 1.33 K/mm3 (1.10-4.50); Lymphocytes Percent Auto 19.2 % (18.0-42.0); Mean Corpuscular HGB Conc 34.4 g/dL (32-36); Mean Corpuscular Hemoglobin 31.1 pg (27.0-31.0); Mean Corpuscular Volume 90.4 fL (78.0-102.0); Mean Platelet Volume 8.9 fl (9.2-11.8); Monocytes Absolute Auto 0.57 K/mm3 (0.10-0.90); Monocytes Percent Auto 8.2 % (2.0-11.0); Neutrophils Absolute Auto 4.56 K/mm3 (1.70-7.20); Platelet Count Result 221 K/mm3 (150-420); Red Blood Count 4.25 M/mm3 (4.20-5.40); Red Cell Distribution Width 12.9 % (11.6-14.4); White Blood Count 6.9 K/mm3 (4.8-10.8)
[2023-08-02 17:08] LABS: Alanine Aminotransferase 17 U/L (14-59); Albumin Level 3.5 g/dL (3.4-5.0); Alkaline Phosphatase 108 U/L (46-116); Anion Gap 10 mmol/L (4-12); Aspartate Amino Transferase 14 U/L (15-37); Bilirubin,Total 0.4 mg/dL (0.00-1.00); Blood Urea Nitrogen 18 mg/dL (7-18); Calcium 8.4 mg/dL (8.5-10.1); Carbon Dioxide 26 mmol/L (21-32); Chloride 104 mmol/L (98-108); Estimated Glomerular Filt Rate 53; Glucose 104 mg/dL (70-99); Osmolality Calculated 291 mOsm/kg (285-295); Potassium 3.3 mmol/L (3.5-5.1); Sodium 140 mmol/L (136-145); Total Protein 6.6 g/dL (6.4-8.2)
== END 2023-08-02 16:33 | disposition home or self-care (01) ==
LOC: CHSLAB 16:35
PROVIDERS: PCP Internal Medicine; Visit Provider Internal Medicine Hematology & Oncology
DX: C18.6 Malignant neoplasm of descending colon (principal)
CPT/HCPCS: 36415; 80053; 82378; 85025

== ENCOUNTER 2023-10-09 00:51 | Day surgery (SDC) | payer MEDICARE, SELFPAY ==
[2023-09-19 09:17] VITALS: BMI 25.1
[2023-10-09 08:49] VITALS: BP 162/49; PULSE 71; RESP 20; TEMP 35.9; O2SAT 100
[2023-10-09] MEDS: LACTATED RINGERS 1,000 ML 150 ML IV CONT (08:58)
--- NOTE | 2023-10-09 09:31 | PM.HPGS ---
History of Present Illness History of Present Illness Consent: Risks, benefits, and alternatives have been discussed and questions answered. Patient agrees to proceed with procedure. Chief complaint: Personal hx. colon CA Narrative: Sowmya Copeland is a 77 year old female with rt colon cancer s/p surgery 2022 Review of Systems Review of Systems: All systems reviewed & are unremarkable except as noted in HPI and below PMFSH Past Medical History Medical History Anemia Hypertension Surgical History Surgical History H/O sinus surgery History of delivery History of tonsillectomy S/P right colectomy Robotic assisted right colectomy on 07/31/22 Social History Social History Smoking status: Never smoker Alcohol intake: current Alcohol use details: 1-2 drinks a year Substance use: never Substance use type: does not use Lack of Transportation: No Lack of Food: Never True Current Housing: I Have Housing Concerned About Future Housing: No Difficulty Paying Gas/Electric Bills: No Difficulty Paying for Meds: No Currently Unemployed: No Education: High School Diploma/GED Difficulty w/ Childcare or Family Care: No Living arrangements: with friend(s) Additional living arrangements comments: BOYFRIEND Occupation/Education: retired Additional occupation/education comments: 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 [employer] Spiritual care concerns: No Meds Home Medications and Allergies Home Medications Medication Instructions Recorded Confirmed Type losartan 100 mg tablet 100 mg PO QAM 05/16/22 10/09/23 History montelukast 10 mg tablet 10 mg PO HS 05/16/22 10/09/23 History raloxifene 60 mg tablet 60 mg PO HS 05/16/22 10/09/23 History famotidine 40 mg tablet 40 mg PO DAILY 06/12/22 10/09/23 History ascorbic acid (vitamin C) 500 mg 1,000 mg PO DAILY 07/25/22 10/09/23 History chewable tablet (Vitamin C) calcium 300 mg chewable tablet 600 mg PO DAILY 07/25/22 10/09/23 History cholecalciferol (vitamin D3) 25 25 mcg PO DAILY 07/25/22 10/09/23 History mcg (1,000 unit) capsule (Vitamin D3) cyanocobalamin (vitamin B-12) 500 250 mcg PO DAILY 07/25/22 10/09/23 History mcg tablet (Vitamin B-12) hydrochlorothiazide 12.5 mg tablet 12.5 mg PO QAM 07/25/22 10/09/23 History budesonide 0.25 mg/2 mL suspension 0.25 mg inhalation PRN PRN 09/13/22 10/09/23 History for nebulization Shortness Of Breath cetirizine 10 mg tablet (Zyrtec) 10 mg PO DAILY 09/19/23 10/09/23 History Allergies Allergy/AdvReac Type Severity Reaction Status Date / Time fluorouracil AdvReac Severe shortness Verified 10/09/23 08:47 of breath oxaliplatin AdvReac Severe shortness Verified 10/09/23 08:47 of breath Sulfa (Sulfonamide AdvReac Severe shortness Verified 10/09/23 08:47 Antibiotics) of breath Vital Signs Vital Signs - 24 hr 10/09/23 08:49 Temperature 96.7 F L Pulse Rate 71 Respiratory Rate 20 Blood Pressure 162/49 H Pulse Oximetry 100 Oxygen Delivery Room Air Exam Const: General: comfortable and no acute distress HENMT: Face/Nose/Sinus: Normal nares present Eyes: General: appearance normal, both eyes and all related structures Neck: Neck: no JVD Resp: Auscultation: clear to auscultation bilaterally Cardio: Rate: regular rate Rhythm: regular rhythm GI: Inspection: non-distended GI Palp: Yes Soft to palpation Skin: General skin exam: normal color Neuro: General: gait normal Speech: normal speech Extrem: General: normal to inspection Psych: Mental Status: mental status grossly normal Assessment and Plan Assessment and plan (1) Adenocarcinoma of colon: Code(s): C18.9 - Malignant neoplasm of colon, unspecified Status: Acute Assessment and Plan: colonoscopy
--- NOTE | 2023-10-09 09:36 | WPDANESEPPF ---
Anes - Initial Pre Proc Eval Procedure: Operation Date: 10/09/23 10:00 Proposed Procedures p Colonoscopy - Markie Lujan MD Date/Time: 10/09/23 09:36 Surgeon: Markie Lujan MD Pre Op Diagnosis: Personal hx. colon CA Patient Data Age: 77 Gender: F Height: 1.47 m Weight: 56 kg Last Vital Signs Temp 96.7 F L 10/09/23 08:49 Pulse 71 10/09/23 08:49 Resp 20 10/09/23 08:49 BP 162/49 H 10/09/23 08:49 Pulse Ox 100 10/09/23 08:49 O2 Del Method Room Air 10/09/23 08:49 Allergies Allergy/AdvReac Type Severity Reaction Status Date / Time fluorouracil AdvReac Severe shortness Verified 10/09/23 08:47 of breath oxaliplatin AdvReac Severe shortness Verified 10/09/23 08:47 of breath Sulfa (Sulfonamide AdvReac Severe shortness Verified 10/09/23 08:47 Antibiotics) of breath Home Medications Medication Instructions Recorded Confirmed Type losartan 100 mg tablet 100 mg PO QAM 05/16/22 10/09/23 History montelukast 10 mg tablet 10 mg PO HS 05/16/22 10/09/23 History raloxifene 60 mg tablet 60 mg PO HS 05/16/22 10/09/23 History famotidine 40 mg tablet 40 mg PO DAILY 06/12/22 10/09/23 History ascorbic acid (vitamin C) 500 mg 1,000 mg PO DAILY 07/25/22 10/09/23 History chewable tablet (Vitamin C) calcium 300 mg chewable tablet 600 mg PO DAILY 07/25/22 10/09/23 History cholecalciferol (vitamin D3) 25 25 mcg PO DAILY 07/25/22 10/09/23 History mcg (1,000 unit) capsule (Vitamin D3) cyanocobalamin (vitamin B-12) 500 250 mcg PO DAILY 07/25/22 10/09/23 History mcg tablet (Vitamin B-12) hydrochlorothiazide 12.5 mg tablet 12.5 mg PO QAM 07/25/22 10/09/23 History budesonide 0.25 mg/2 mL suspension 0.25 mg inhalation PRN PRN 09/13/22 10/09/23 History for nebulization Shortness Of Breath cetirizine 10 mg tablet (Zyrtec) 10 mg PO DAILY 09/19/23 10/09/23 History Patient hx anesthesia problems: none Family hx anesthesia problems: none Results Review: All pre-operative results and documents have been reviewed as part of the pre-operative evaluation. PMFSH Past Medical History Medical History Anemia Hypertension Surgical History Surgical History H/O sinus surgery History of delivery History of tonsillectomy S/P right colectomy Robotic assisted right colectomy on 07/31/22 Social History Social History Smoking status: Never smoker Alcohol intake: current Alcohol use details: 1-2 drinks a year Substance use: never Substance use type: does not use Lack of Transportation: No Lack of Food: Never True Current Housing: I Have Housing Concerned About Future Housing: No Difficulty Paying Gas/Electric Bills: No Difficulty Paying for Meds: No Currently Unemployed: No Education: High School Diploma/GED Difficulty w/ Childcare or Family Care: No Living arrangements: with friend(s) Additional living arrangements comments: BOYFRIEND Occupation/Education: retired Additional occupation/education comments: 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 Informed Consent: The patient's anesthetic plan and its attendant risks and benefits were discussed with the patient/family/POA. Questions were solicited and answers provided to the satis
[2023-10-09 10:00] VITALS: BP 116/52; PULSE 76; RESP 18; TEMP 35.9; O2SAT 100
[2023-10-09 10:10] VITALS: BP 109/83; PULSE 59; RESP 23; O2SAT 100
[2023-10-09 10:20] VITALS: BP 113/53; PULSE 61; RESP 17; O2SAT 100
== END 2023-10-09 10:30 | disposition home or self-care (01) ==
PROVIDERS: PCP Internal Medicine; Referring Provider Internal Medicine Hematology & Oncology; Visit Provider Internal Medicine Gastroenterology
PROC: 0DJD8ZZ Inspection of Lower Intestinal Tract, Via Natural or Artificial Opening Endoscopic (ICD-10-PCS; CPT 45378; principal; 2023-10-09 10:00)
DX: Z08 Encounter for follow-up examination after completed treatment for malignant neoplasm (principal); K57.30 Diverticulosis of large intestine without perforation or abscess without bleeding; K64.8 Other hemorrhoids; Z85.038 Personal history of other malignant neoplasm of large intestine; Z90.49 Acquired absence of other specified parts of digestive tract; Z98.0 Intestinal bypass and anastomosis status; I10 Essential (primary) hypertension; D64.9 Anemia, unspecified; Z79.51 Long term (current) use of inhaled steroids
CPT/HCPCS: 45378; J2704; J7120

== ENCOUNTER 2023-11-29 16:51 | Outpatient (CLI) | payer MEDICARE, SELFPAY ==
[2023-11-29 17:08] LABS: Basophils Absolute Auto 0.04 K/mm3 (0.00-0.10); Basophils Percent Auto 0.7 % (0.0-1.0); Eosinophils Absolute Auto 0.35 K/mm3 (0.02-0.50); Eosinophils Percent Auto 6.1 % (1.0-6.0); Hematocrit 39.7 % (35.0-42.0); Hemoglobin 13.6 g/dL (11.7-13.8); Immature Granulocyte Absolute 0.02 K/mm3 (0.00-0.00); Immature Granulocyte Percent A 0.3 % (0.0-0.0); Lymphocytes Absolute Auto 1.33 K/mm3 (1.10-4.50); Lymphocytes Percent Auto 23.1 % (18.0-42.0); Mean Corpuscular HGB Conc 34.3 g/dL (32-36); Mean Corpuscular Hemoglobin 31.1 pg (27.0-31.0); Mean Corpuscular Volume 90.8 fL (78.0-102.0); Mean Platelet Volume 9.3 fl (9.2-11.8); Monocytes Absolute Auto 0.63 K/mm3 (0.10-0.90); Monocytes Percent Auto 10.9 % (2.0-11.0); Neutrophils Percent Auto 58.9 % (50.0-70.0); Platelet Count Result 251 K/mm3 (150-420); Red Blood Count 4.37 M/mm3 (4.20-5.40); Red Cell Distribution Width 13.2 % (11.6-14.4); White Blood Count 5.8 K/mm3 (4.8-10.8)
[2023-11-29 17:53] LABS: Alanine Aminotransferase 25 U/L (14-59); Albumin Level 3.6 g/dL (3.4-5.0); Alkaline Phosphatase 124 U/L (46-116); Anion Gap 10 mmol/L (4-12); Aspartate Amino Transferase 15 U/L (15-37); Bilirubin,Total 0.5 mg/dL (0.00-1.00); Blood Urea Nitrogen 13 mg/dL (7-18); Calcium 8.8 mg/dL (8.5-10.1); Carbon Dioxide 27 mmol/L (21-32); Chloride 105 mmol/L (98-108); Estimated Glomerular Filt Rate 51; Glucose 112 mg/dL (70-99); Osmolality Calculated 295 mOsm/kg (285-295); Potassium 4.5 mmol/L (3.5-5.1); Sodium 142 mmol/L (136-145); Total Protein 6.7 g/dL (6.4-8.2)
[2023-12-01 07:50] LABS: Carcinoembryonic Antigen 3.4 ng/mL
== END 2023-11-29 16:52 | disposition home or self-care (01) ==
PROVIDERS: PCP Internal Medicine; Visit Provider Internal Medicine Hematology & Oncology
DX: C18.6 Malignant neoplasm of descending colon (principal)
CPT/HCPCS: 36415; 80053; 82378; 85025

== ENCOUNTER 2024-03-24 08:21 | Outpatient (CLI) | payer MEDICARE, SELFPAY ==
--- NOTE | ~2024-03-24 | CT_ITS ---
EXAMINATION: CT abdomen pelvis w con DATE: 03/24/2024 08:48 INDICATION: Malignancy of the descending colon. TECHNIQUE: Computed tomography (CT) of the abdomen and pelvis was performed with 100 mL Omnipaque-350 intravenous contrast. Automated exposure control and iterative reconstruction technique were employe d. The dose-length product was 309.95 mGy-cm. COMPARISON: 07/24/2023 and 07/12/2022 FINDINGS: 9 x 4 mm pleural-based nodule at the left lower lobe, unchanged since 07/12/2022 and most likely benign . Additional mild atelectasis at the bilateral lung bases. Heart is normal. No pericardial or pleural effusion. Small sliding-type hiatal hernia. There are multiple hepatic cysts measuring up to 2.3 cm. Multiple gallstones in the dependent aspect of the normal gallbladder. Spleen, pancreas, bilateral a drenal glands and kidneys are normal. Status post right hemicolectomy with ileocolic anastomosis in t he right abdomen. There is mild to moderate diverticulosis along the sigmoid and distal descending co adonay without adjacent from trace stranding to suggest diverticulitis. No bowel obstruction. Bladder is normal. Bladder and anteverted uterus are normal. No significant change in a 3 cm right adnexal cyst . Omental fat extends into a widemouthed partial thickness left upper quadrant ventral hernia which r emains deep to the superficial fascia of the abdominal wall musculature. No free intraperitoneal gas or fluid. No pathologically enlarged abdominal or pelvic lymphadenopathy. Severe upper lumbar spondyl osis with mild levocurvature and 2 mm retrolisthesis L1 on L2 and L2 on L3. IMPRESSION: 1. Status post right hemicolectomy for reported colon cancer with no evident metastatic disease. 2. Cholelithiasis. 3. Diverticulosis. 4. Widemouthed fat-containing partial-thickness left upper quadrant ventral hernia. 5. Small sliding-type ministerio hernia. Reviewed, dictated and finalized at location A. CIAL ADMINISTRATIVE ASSISTANT IMPRESSION: 1. Status post right hemicolectomy for reported colon cancer with no evident me tastatic disease. 2. Cholelithiasis. 3. Diverticulosis. 4. Widemouthed fat-containing partial-thickness left upper quadrant ventral her lionel. 5. Small sliding-type ministerio hernia.
[2024-03-24 08:44] LABS: Estimated Glomerular Filt Rate 54
[2024-03-24 10:10] LABS: Basophils Percent Auto 0.9 % (0.2-1.2); Eosinophils Absolute Auto 0.4 K/mm3 (0-0.3); Eosinophils Percent Auto 7.7 % (0-4.4); Hematocrit 43.5 % (37.0-47.0); Hemoglobin 14.4 g/dL (12.0-15.0); Immature Granulocyte Absolute 0.02 K/mm3 (0.00-0.031); Immature Granulocyte Percent A 0.4 % (0-0.5); Lymphocytes Percent Auto 19.4 % (18.3-44.2); Mean Corpuscular HGB Conc 33.1 g/dl (32-36); Mean Corpuscular Hemoglobin 30.3 pg (26-34); Mean Corpuscular Volume 91.6 fl (80-100); Mean Platelet Volume 9.5 fl (7.4-10.4); Monocytes Absolute Auto 0.4 K/mm3 (0.1-0.6); Monocytes Percent Auto 9.2 % (2.6-8.5); Neutrophils Absolute Auto 2.9 K/mm3 (1.3-6.7); Neutrophils Percent Auto 62.4 % (45.5-73.1); Platelet Count Result 235 k/mm3 (150-375); Red Blood Count 4.75 M/mm3 (4.2-5.4); Red Cell Distribution Width 13.2 % (11.5-14.5); White Blood Count 4.7 K/mm3 (4.5-10.0)
[2024-03-24 10:28] LABS: Alanine Aminotransferase 17 U/L (6-35); Alkaline Phosphatase 122 U/L (38-126); Anion Gap 7 mmol/L (4-12); Aspartate Amino Transferase 24 U/L (14-36); Bilirubin,Total 0.8 mg/dL (0.2-1.3); Blood Urea Nitrogen 15 mg/dL (7-17); Carbon Dioxide 27 mmol/L (22-30); Chloride 103 mmol/L (98-107); Estimated Glomerular Filt Rate > 60; Glucose 91 mg/dL (65-110); Potassium 3.8 mmol/L (3.4-5.0); Sodium 137 mmol/L (137-145)
[2024-03-24 10:56] LABS: Carcinoembryonic Antigen 4.7 ng/mL (0.0-3.0)
--- OUTSIDE RECORDS SUMMARY | 2024-03-24 11:19 | XMS_ITS | Clinical Summary ---
Author Organization [facility] Address [address] [place] [address] Care Team Providers Care Funeral Pre Arrangement Counselor Name Role Phone Ben Crain MD Primary Care Provider [phone] Allergies Active Allergy Reactions Criticality Noted Date Comments Sulfa (Sulfonamide Antibiotics) Unknown 08/05 Medications ascorbic acid (vitamin C) 250 mg tablet Take 250 mg by mouth. 04/29/2021 Active HYDROCODONE-PRASANTH TAMINOPHEN ORAL Take 7.5 mg by mouth. Active losartan (COZAAR) 100 mg tablet Take 100 mg by mouth daily. Active montelukast (SINGULAIR) 10 mg tablet Take 10 mg by mouth daily at bedtime. Active raloxifene (EVISTA) 60 mg tablet Take 60 mg by mouth daily. Active VIT B COMP NO.5-SFMKA-D-BI OTIN ORAL Take 250 mg by mouth. Active CALCIUM CARBONATE ORAL Take 300 mg by mouth. Active famotidine (PEPCID) 40 mg tablet Take 40 mg by mouth daily. 06/22/2022 Active dexAMETHasone (DECADRON) 4 mg tabletIndicatio ns:Malignant neoplasm of descending colon (CMS/HCC) Take 1 Tablet by mouth BID day before treatment, day of treatment, and day after treatment. 6 Tablet 4 10/17/2022 Active capecitabine (XELODA) 150 mg tablet Take 5 Tablets (750 mg) by mouth 2 times daily with meals for 14 days on then 7 days off every 21 day cycle. (Take along with 500mg [id number] dose) 140 Tablet 4 11/14/2022 2:28 PM CDT 10/30/2022 Active capecitabine (Xeloda) 500 mg tablet Take 1 Tablet (500 mg) by mouth 2 times daily with meals for 14 days on then 7 days off every 21 day cycle. (Take along with 150mg [id number] dose) 28 Tablet 4 11/14/2022 2:28 PM CDT 10/30/2022 Active potassium chloride (KLOR-CON) 20 mEq Extended Release tablet TAKE 1 TABLET(20 MEQ) BY MOUTH TWICE DAILY 60 Tablet 1 12/08/2022 Active Active Problems No known active problems Encounters Date Type Department Care Team Description 03/05/2024 External Device Data [facility] ABSTRACTION Provider, Abstract 02/28/2024 External Device Data [facility]STRACTION Provider, Abstract from Last 3 Months Family History Relation Name Status Comments Brother Alive Daughter Alive Father Mother Sister Alive Social History Tobacco Use Types Packs/Day Years Used Date Smoking Tobacco: Never Smokeless Tobacco: Never Tobacco Cessation:Counseling Given: Not Answered Alcohol Use Standard Drinks/Week Comments Not Currently 0 (1 standard drink = 0.6 oz pur e alcohol) Comments Unknown Sex and Gender Information Value Date Recorded Sex Assigned at Not on file Legal Sex Female 3:16 PM CDT Gender Identity Not on file Sexual Orientation Not on file Last Filed Vital Signs Vital Sign Reading Time Taken Comments Blood Pressure 132/64 11/30/2023 10:14 AM CDT Pulse 69 11/30/2023 10:10 AM CDT Temperature 36.5 C (97.7 F) 11/30/2023 10:10 AM CDT Respiratory Rate 16 11/30/2023 10:10 AM CDT Oxygen Saturation 96% 11/30/2023 10:10 AM CDT Inhaled Oxygen Concentration - - Weight 56.7 kg (125 lb) 11/30/2023 10:10 AM CDT Height 147.3 cm (4' 10 ) 08/15/2022 9:40 AM CDT Body Mass Index 26.13 08/15/2022 9:40 AM CDT Plan of Treatment Upcoming Encounters Date Type Department Care Team (Late st Contact Info) Description 03/31/2024 2:15 PM [employer] Office Visit [facility] Oncology and Hematology - [facility] [phone] [place] [phone] Pérez Quintero MD [address] [place] [phone] Health Maintenance Due Date Last Done Comments DTAP/TDAP/TD VACCINES (1 - Tdap) 1964 PNEUMOCOCCAL VACCINE 65+ YEA RS (1 of 2 - PCV) 1964 ZOSTER VACCINE (1 of 2) 12/27/1995 RSV VACCINE (60+ or ) (1 - 1-dose 75+ series) 2020 INFLUENZA VACCINE (#1) 2023 OSTEOPOROSIS SCREENING Completed 07/26/2018 COLORECTAL SCREENING Discontinued 10/09/2023, 06/29/19 23 Colorectal Cancer Screening Discontinued FIT-DNA Q 3 years Discontinued FIT/FOBT Q 1 year Discontinued Flex Sig/CT Colonography Q 5 years Discontinued Insurance [employer] MEDICARE SUPP AESSI RX [facility] Medicare Part D RX [facility] DATA Medicare Part B Care Teams Funeral Pre Arrangement Counselor Relationship Specialty Start Date End Date Ben Crain MD [address] [place] [address] PCP - General Internal Medicine 08/15/22
--- OUTSIDE RECORDS SUMMARY | 2024-03-24 11:19 | XMS_ITS | Referral Summary ---
Author Organization [facility], formerly [facility] Physician Office Building 2 Address [address] [place] [address] Care Team Providers Care Material Damage Adjuster Name Role Phone Ben Crain MD Primary Care Provider [phone] Allergies Active Allergy Reactions Criticality Noted Date Comments Sulfa (Sulfonamide Antibiotics) Swelling Medium Medications cholecalciferol (VITAMIN D3) 2,000 unit capsule take 1 tablet every day 0 0 6 Active Additional Information Patient taking differently: 2,000 Units oral Nightly, Reported on 07/19/2022 cyanocobalamin (vitamin B-12) 1,000 mcg tablet take 1 a day 0 0 6 Active Additional Information Patient not taking.Reported on 01/03/2022 cetirizine (ZyrTEC) 10 mg tablet take 1 tablet by oral route every day 0 0 6 Active Additional Information Patient not taking.Reported on 01/03/2022 montelukast (SINGULAIR) 10 mg tablet take 1 tablet by oral route every day in the evening 0 0 6 Active Additional Information Patient not taking.Reported on 01/03/2022 raloxifene (EVISTA) 60 mg tablet take 1 tablet by oral route every day 0 0 6 Active Additional Information Patient taking differently:60 mgoral Nightly, Reported on 07/19/2022 hydroCHLOROthia zide (HYDRODIURIL) 12.5 mg tablet Take 1 tablet (12.5 mg total) by mouth daily 0 9 Active losartan (COZAAR) 100 mg tablet Take 1 tablet (100 mg total) by mouth daily 0 9 Active calcium carbonate-vitam in D3 1,500 mg (600 mg elemental)-800 unit tablet,chewable Take 2 tablets by mouth nightly Active ascorbic acid, vitamin C, 250 mg tablet,chewable Take 500 mg by mouth nightly Active ferrous sulfate 325 mg (65 mg of elemental iron) tabletIndicatio ns:Iron Deficiency Anemia Take 1 tablet (325 mg total) by mouth nightly Active docusate sodium (COLACE) 100 mg capsuleIndicati ons:constipatio n Take 1 capsule (100 mg total) by mouth 2 (two) times a day 60 capsule 2 Active aspirin 325 mg tablet Take 1 tablet (325 mg total) by mouth 2 (two) times a day after breakfast and dinner 60 tablet 2 Active HYDROcodone-dre taminophen (NORCO) 5-325 mg per tabletIndicatio ns:Pain Take 1-2 tablets by mouth every 4 (four) hours as needed for pain 50 tablet 2 Active Additional Information Patient not taking.Reported on 03/13/2022 naloxone (NARCAN) 4 mg/actuation spray,non-aeros ol Administer 1 spray into affected nostril(s) as needed for opioid reversal or respiratory depression Call 911. Administer a single spray in one nostril. Repeat every 3 minutes as needed if no or minimal response. 1 each 2 Active celecoxib (CeleBREX) 100 mg capsule Take 1 capsule by mouth twice daily 60 capsule 2 Active albuterol HFA (PROVENTIL HFA,VENTOLIN HFA,PROAIR HFA) 90 mcg/actuation inhaler 2 Active famotidine (PEPCID) 40 mg tablet 3 Active Active Problems Problem Noted Date Diagnosed Date Posterior vitreous detachment of left eye 2021 Arthritis of midfoot 08/04/2021 Assessment & Plan (08/04/2021 11:47 AM CDT): Patient seems to be most bothered by her midfoot arthritis. She has found inserts in the past to be helpful in new medial wedge insert was provided. If she is not getting relief this measures she may want to get in to see our foot ankle specialist as other measures could be tried [place]IL[place] (obstructive sleep apnea) 04/28/2021 Tendinitis of right hip flexor 12/21/2020 Assessment & Plan (12/21/2020 2:16 PM HAND POTTER): Patient actually avulsed her iliopsoas tendon from the lesser trochanter. She most likely would benefit from physical therapy to work on a conditioning program. Better fitting knee brace was also issued. Adnexal cyst 12/14/2020 Overview (12/14/2020): There is a 3.5 mm right adnexal cyst. Osteochondral lesion 11/30/2020 Assessment & Plan (11/30/2020 3:47 PM CDT): Patient did have a sclerotic density seen in the supra-acetabular region over the right hip were she continues to have pain. Would recommend obtaining an MRI to make sure she does not have a stress fracture or other occult process. Will call the results once available Hip flexor tendinitis, right 11/04/2020 Assessment & Plan (11/04/2020 12:19 PM CDT): Patient likely has strained her hip flexors on the right. She may find stretching to be beneficial and hopefully with the reduce pain and swelling in the knee she has a more normal non compensated walking pattern. Posterior tibialis tendon insufficiency 03/10/19 20 Assessment & Plan (11/17/2019 11:28 AM CDT): Patient has some secondary arthritis with posterior tibial insufficiency in both of her feet. She is most symptomatic at the right side however near the ankle joint. She is known to have arthritis of the MTP joint and may be developing arthritis in the ankle. Referred her to her foot ankle specialist Assessment & Plan (03/10/2019 1:26 PM HAND POTTER): Patient has posterior tibial insufficiency bilaterally with secondary degenerative changes of the midfoot. 4 degree medial wedge is were issued to counter her foot positioning. If she is having persistent pain evaluation by our foot ankle subspecialists may be helpful. Patient shoe wear shoes that are better made with built-in arches as well. 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 She is not terribly symptomatic at her MTP joints for the time being. If she becomes so evaluation by our foot ankle specialist may be helpful. Arthritis of right knee 03/10/2019 Assessment & Plan (01/17/2021 3:04 PM HAND POTTER): Patient has advanced arthritis of the right knee that failed respond to conserve measures. She is markedly impaired by the knee and failed respond to medication therapy up to injectables. She is having progressive angulation of the leg and instabilities developing. As such would recommend knee replacement surgery which have provided opportunity to straighten the leg balance the ligaments and remove the arthritic surfaces. She has complete joint space obliteration radiographically. She will be enrolled in a total knee protocol. She is to be taking iron two weeks prior to surgery in preparation of perioperative blood loss. Preoperative labs will be obtained to see if there is any potential wound healing issues. Assessment & Plan (11/04/2020 12:15 PM CDT): Patient has reactive synovitis of her knee with fairly advanced arthritis and angular changes. She is likely facing knee replacement surgery in the not too distant future and plans on and December discussed timing of her surgery. In the meantime the patient was given a cortisone injection today. She tolerated the procedure well. Assessment & Plan (08/02/2020 4:03 PM CDT): Patient has fairly advanced arthritis of the right knee is likely facing knee replacement surgery in the not too distant future. After reviewing the treatment options she elected undergo a cortisone injection today. She tolerated the procedure well. Long-term she should avoid weight gain. Assessment & Plan (02/26/2020 11:40 AM HAND POTTER): Patient has reactive synovitis of her right arthritic knee. She has responded well to cortisone the past. After reviewing the treatment options she elected undergo a follow-up cortisone injection today. She was advised to stretch before rising as she has difficulties getting out of a chair one seated. She also should avoid kneeling if at all possible as this is likely to increase pain and pressure in her knee. Assessment & Plan (11/17/2019 11:22 AM CDT): Patient has degenerative arthritis of the right knee with reactive synovitis currently. After reviewing the treatment options she elected undergo a cortisone injection today. She tolerated the procedure well. Assessment & Plan (03/10/2019 1:25 PM HAND POTTER): Patient has moderate arthritis of the right knee with reactive synovitis clinically. After reviewing the treatment options she elected undergo a cortisone injection today. She tolerated the procedure well. Long-term weight loss would likely be beneficial. 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 Wiith overlying drusen. No orange pigment Continue observation Assessment & Plan (07/08/2019 3:40 PM CDT): Stable in size by B scan and fundus photos SRF, but overlying drusen. No orange pigment Consider observation Cortical cataract of both eyes 11/26/2018 Assessment & Plan (07/13/2020 2:19 PM CDT): Continue observation Assessment & Plan (11/26/2018 10:19 AM CDT): Not yet visually significant. Monitor Trochanteric bursitis 11/25/2015 Overview (05/13/2016): Trochanteric bursitis, left hip Assessment & Plan (03/13/2022 9:35 AM HAND POTTER): Patient has developed recurrent bursitis of the right trochanter. She responded quite well to cortisone the past and after reviewing the treatment options elected undergo a shot today. She tolerated the procedure well. Assessment & Plan (08/02/2020 4:05 PM CDT): Patient's current pain about her left hip is more localized over the hip flexor attachments over the anterior iliac spines and not her trochanter. Stretching exercises were demonstrated. She may be aggravating the area compensating for her right knee Assessment & Plan (07/04/2018 3:50 PM CDT): Patient's history and exam is consistent with trochanteric bursitis. After reviewing the treatment options patient elected undergo a cortisone injection today. She has minimal arthritis in the hip joint is not likely facing hip replacement surgery in the near future. Stretching of her back and upper leg may be helpful. Obtaining a mattress pad may also reduce stress allow for more comfort when laying on the side Closed fracture of pubis ([facility]) 10/19/2015 Overview (05/10/2016): Other closed fracture of left pubis with delayed healing, subsequent encounter Rupture of tendon of hip 10/19/2015 Overview (05/10/2016): Tear of left gluteus minimus tendon, subsequent encounter Fracture of sacrum 10/19/2015 Overview (05/12/2016): Sacral insufficiency fracture with delayed healing Hypertension 05/19/2010 Bronchial asthma 05/19/2010 Osteoporosis 05/19/2010 Social History Tobacco Use Types Packs/Day Years Used Date Smoking Tobacco: Never Smokeless Tobacco: Never Alcohol Use Standard Drinks/Week Comments Yes 0 (1 standard drink = 0.6 oz pur e alcohol) Social Connection and Isolation Panel [NHANES] A nswer Date Recorded In a typical week, how many times do you talk on the phone with family, friends, or neighbors? Three times a week 04/28/2021 How often do you get togethe r with friends or relatives? Twice a week 04/28/2021 Attends Caodaism Services Not on file 04/28 Active Member of Clubs or Organizations Not on f ile 04/28/2021 Attends Club or Organization Meetings Not on isauro e 04/28/2021 Marital Status Not on file 04/28/2021 AUDIT-C Answer Date Recorded Q1: How often do you have a drink containing alc ohol? Monthly or less 04/22/2021 Q2: How many drinks containi ng alcohol do you have on a typical day when you are drinking? 1 or 2 04/22/2021 Q3: How often do you have si x or more drinks on one occasion? Never 04/22/2021 Overall Financial Resource Strain (CARDIA) Answe r Date Recorded How hard is it for you to pa y for the very basics like food, housing, medical care, and heating? Not hard at all 04/28/2021 Hunger Vital Sign Answer Date Recorded Within the past 12 months, y ou worried that your food would run out before you got the money to buy more. Never true 04/29/19 22 Within the past 12 months, t he food you bought just didn't last and you didn't have money to get more. Never true 04/28/2021 PRAPARE - Transportation Answer Date Re corded In the past 12 months, has l ack of transportation kept you from medical appointments or from getting medications? No 04/06 In the past 12 months, has l ack of transportation kept you from meetings, work, or from getting things needed for daily living? No 04/28/2021 Housing Stability Vital Sign Answer Jorge A e Recorded In the last 12 months, was t here a time when you were not able to pay the mortgage or rent on time? No 04/28/2021 Number of Places Lived in the Last Year Not on f ile 04/28/2021 In the last 12 months, was t here a time when you did not have a steady place to sleep or slept in a fdc (including now)? No 04/28/2021 Comments No Sex and Gender Information Value Date Recorded Sex Assigned at Not on file Legal Sex Female 4:12 AM HAND POTTER Gender Identity Not on file Sexual Orientation Not on file Last Filed Vital Signs Vital Sign Reading Time Taken Comments Blood Pressure 111/50 04/29/2021 12:15 PM CDT Pulse 86 04/29/2021 12:15 PM CDT Temperature 37.4 C (99.4 F) 04/29/2021 12:15 PM CDT Respiratory Rate 16 04/29/2021 12:15 PM CDT Oxygen Saturation 95% 04/29/2021 12:15 PM CDT Inhaled Oxygen Concentration - - Weight 55.8 kg (123 lb) 03/13/2022 8:59 AM HAND POTTER Height 147.3 cm (4' 9.99 ) 03/13/2022 8:59 AM CS T Body Mass Index 25.71 03/13/2022 8:59 AM HAND POTTER Plan of Treatment Not on file Medical Devices Implanted Type Area Supervisor Motor Vehicle Assembly Device Identifier Shelf Expiration Date Model / Serial / Lot [employer] [id number] Palacos R High Viscosity Cement 40gm Bone Green - [id number] Implanted:Qty: 1 on 04/27/2021 by Carlos Alberto Ferrera MD at [facility] Right: Knee [employer] 07/06/2023 [id number] / / [id number] [employer] [id number] Persona Cruciate Retain Knee Right 5 Narrow Component Femoral - [id number] Implanted:Qty: 1 on 04/27/2021 by Carlos Alberto Ferrera MD at [facility] Right: Knee [employer] 10/14/2029 [id number] / / [id number] [employer] [id number] Persona Cemented Stem Knee Right 5d C Baseplate Tibial Tivanium - [id number] Implanted:Qty: 1 on 04/27/2021 by Carlos Alberto Ferrera MD at [facility] Right: Knee [employer] 10/03/2030 [id number] / / [id number] [employer] [id number] Persona 12mm Knee Right 4-5 C-D Insert Articular Vivacit-E - [id number] Implanted:Qty: 1 on 04/27/2021 by Carlos Alberto Ferrera MD at [facility] Right: Patella [employer] 02/04/2023 [id number] / / [id number] Procedures Procedure Name Priority Date/Time Associated Diagnosis Comments BONE MINERAL DENSITY 11/20/2013 from Last 3 Months or Most Recently Relevant to Health Maintenance Results * BONE MINERAL DENSITY (11/20/2013) Anatomical Region Laterality Modality Radiographic Negar ging Narrative 11/20/2013 Ordered by an unspecified provider. us Historical Provider MD ROSARIO DXA PROCEDURES Final Result from Last 3 Months or Most Recently Relevant to Health Maintenance Insurance [facility] SENIOR SUPPLEMENT MEDICARE [employer] SENIOR SUPPLEMENT Advance Directives For more information, please contact: [phone] * Full Code (Latest Code Status on File) Date Activated Date Inactivated Comments 04/27/2021 5:44 PM 04/29/2021 6:26 PM Care Teams Material Damage Adjuster Relationship Specialty Start Date End Date Ben Crain MD PCP - General Internal Medicine 11/07/19
--- OUTSIDE RECORDS SUMMARY | 2024-03-24 11:19 | XMS_ITS | Clinical Summary ---
Author Organization [facility] Address [address] [place] [id number] Care Team Providers Care Director Dance Name Role Phone Unavailable Primary Care Provider Unavailabl e Social History Tobacco Use Types Packs/Day Years Used Date Smoking Tobacco: Never Comments Unknown Sex and Gender Information Value Date Recorded Sex Assigned at Not on file Legal Sex Female 8:52 PM CDT Gender Identity Not on file Sexual Orientation Not on file Last Filed Vital Signs Vital Sign Reading Time Taken Comments Blood Pressure 152/84 05/15/2005 5:08 PM CDT Pulse 72 05/15/2005 5:08 PM CDT Temperature - - Respiratory Rate - - Oxygen Saturation - - Inhaled Oxygen Concentration - - Weight 54.4 kg (120 lb) 05/15/2005 5:08 PM CDT Height 147.3 cm (4' 10 ) 05/15/2005 5:08 PM CDT Body Mass Index 25.08 05/15/2005 5:08 PM CDT Plan of Treatment Health Maintenance Due Date Last Done Comments Hepatitis C 12/27/1963 DTaP, Tdap and Td Vaccines ( 1 - Tdap) 1964 Zoster Vaccines (1 of 2) 12/27/1995 Dexa Scan (General) 2010 Pneumococcal Vaccine: 65+ Ye ars (1 of 1 - PCV) 2010 RSV Immunization or 60+ Years (1 - 1-dose 75+ series) 2020 COVID-19 Vaccine ( - 2023-2 5 season) 2023 Influenza Adult (#1) 2023 Meningococcal B Vaccine Aged Out No l onger eligible based on patient's age to complete this topic Meningococcal Vaccine Aged Out No adonay pablo eligible based on patient's age to complete this topic RSV Immunizations Under 20 Months Aged Out No longer eligible based on patient's age to complete this topic
--- OUTSIDE RECORDS SUMMARY | 2024-03-24 11:19 | XMS_ITS | Clinical Summary ---
Author Organization [facility] Physician Office Building 2 Address [address] [place] [address] Care Team Providers Care Airline Pilot Name Role Phone Ben Crain MD Primary Care Provider Allergies Active Allergy Reactions Criticality Noted Date [...] 12/21/2020 Assessment & Plan (12/21/2020 2:16 PM BULLET MAKER): Patient actually avulsed her iliopsoas tendon from [...] specialist Assessment & Plan (03/10/2019 1:26 PM BULLET MAKER): Patient has posterior tibial insufficiency bilaterally with [...] 03/10/2019 Assessment & Plan (03/10/2019 1:26 PM BULLET MAKER): Patient has pronounced arthritis in the MTP joints bilaterally with hallux valgus. She is not terribly symptomatic at her MTP joints for the time being. If she becomes so evaluation by our foot ankle specialist may be helpful. Arthritis of right knee 03/10/2019 Assessment & Plan (01/17/2021 3:04 PM BULLET MAKER): Patient has advanced arthritis of the right [...] gain. Assessment & Plan (02/26/2020 11:40 AM BULLET MAKER): Patient has reactive synovitis of her right [...] well. Assessment & Plan (03/10/2019 1:25 PM BULLET MAKER): Patient has moderate arthritis of the right [...] hip Assessment & Plan (03/13/2022 9:35 AM BULLET MAKER): Patient has developed recurrent bursitis of the [...] on the side Closed fracture of pubis [facility]) 10/19/2015 Overview (05/10/2016): Other closed fracture of left pubis with delayed healing, subsequent encounter Rupture of tendon of hip 10/19/2015 Overview (05/10/2016): Tear of left gluteus minimus tendon, subsequent encounter Fracture of sacrum 10/19/2015 Overview (05/12/2016): Sacral insufficiency fracture with delayed healing Hypertension 05/19/2010 Bronchial asthma 05/19/2010 Osteoporosis 05/19/2010 Surgical History Surgery Date Site/Laterality Comments SINUS SURGERY SECTION X1 REPLACEMENT TOTAL KNEE 04/05/2021 - 05/05/2021 Right Medical History Medical History Date Comments Hypertension Hypertension Adnexal cyst 12/14/2020 There is a 3.5 m m right adnexal cyst. Sinusitis Arthritis Asthma Motion sickness Sleep apnea Family History * Patient is adopted Medical History Relation Name Comments No Known Problems Brother No Known Problems Daughter No Known Problems Other No Known Problems Sister No Known Problems Son Relation Name Status Comments Brother Daughter Father Mother Other Sister Son Social History Tobacco Use Types Packs/Day Years [...] or relatives? Twice a week 04/28/2021 Attends [employer] Not on file 04/28 Active Member [...] place to sleep or slept in a mcc (including now)? No 04/28/2021 Comments No Sex and Gender Information Value Date Recorded Sex Assigned at Not on file Legal Sex Female 4:12 AM BULLET MAKER Gender Identity Not on file Sexual Orientation Not on file Obstetrics History Last Filed Vital Signs Vital Sign Reading Time Taken Comments Blood Pressure 111/50 04/29/2021 12:15 PM CDT Pulse 86 04/29/2021 12:15 PM CDT Temperature 37.4 C (99.4 F) 04/29/2021 12:15 PM CDT Respiratory Rate 16 04/29/2021 12:15 PM CDT Oxygen Saturation 95% 04/29/2021 12:15 PM CDT Inhaled Oxygen Concentration - - Weight 55.8 kg (123 lb) 03/13/2022 8:59 AM BULLET MAKER Height 147.3 cm (4' 9.99 ) 03/13/2022 8:59 AM CS T Body Mass Index 25.71 03/13/2022 8:59 AM BULLET MAKER Plan of Treatment Health Maintenance Due Date Last Done Comments Depression Screening 1945 Hepatitis C Screening 1945 DTaP/Tdap/Td Vaccine (1 - Tdap) 1956 Hepatitis B Screening 12/27/1963 Zoster Vaccine (1 of 2) 12/27/1995 Well Visit 65+ 2010 Osteoporosis Screening-Bone Density Scan 11/21/2015 11/20/2013, 11/14/2012 Fall Risk Assessment 04/29/2022 04/29/2021 Covid-19 Vaccine (4 - 2023-2 5 season) 2023 11/03/2020, 03/01/2020, 02/09/2020 Influenza Vaccine (#1) 2023 , 11/04/2019, 12/11/2018, Additional history exists Pneumococcal vaccine 65+ Completed 02/09/2016, 09/2011 Medical Devices Implanted Type Area Kennel Aide Device Identifier Shelf Expiration Date Model / Serial / Lot [employer] [id number] [place] R High Viscosity Cement 40gm Bone Green - [id number] Implanted:Qty: 1 on 04/27/2021 by Carlos Alberto Ferrera MD at [facility] Right: Knee [employer] 07/06/2023 [id number] / / [id number] [employer] [id number] Persona Cruciate Retain Knee Right 5 Narrow Component Femoral - [id number] Implanted:Qty: 1 on 04/27/2021 by Carlos Alberto Ferrera MD at [facility] Right: Knee [employer] 10/14/2029 [id number] / / [id number] [employer] [id number] Persona Cemented Stem Knee Right 5d C Baseplate Tibial Tivanium - [id number] Implanted:Qty: 1 on 04/27/2021 by Carlos Alberto Ferrera MD at [facility] Right: Knee [employer] 10/03/2030 [id number] / / [id number] [employer] [id number] Persona 12mm Knee Right 4-5 C-D Insert Articular Vivacit-E - [id number] Implanted:Qty: 1 on 04/27/2021 by Carlos Alberto Ferrera MD at [facility] Right: Patella [employer] 02/04/2023 [id number] / / [id number] Procedures Procedure Name Priority Date/Time Associated Diagnosis Comments BONE MINERAL DENSITY 11/20/2013 from Last 3 Months or Most Recently Relevant to Health Maintenance Results * BONE MINERAL DENSITY (11/20/2013) Anatomical Region Laterality Modality Radiographic Negar ging Narrative 11/20/2013 Ordered by an unspecified provider. Historical Provider MD ROSARIO DXA PROCEDURES Final Result from Last 3 Months or Most Recently Relevant to Health Maintenance Insurance MEDICARE [employer] SENIOR SUPPLEMENT MEDICARE [employer] SENIOR SUPPLEMENT Advance Directives For more information, please contact: [phone] * Full Code (Latest Code Status on File) Date Activated Date Inactivated Comments 04/27/2021 5:44 PM 04/29/2021 6:26 PM Care Teams Airline Pilot Relationship Specialty Start Date End Date Ben Crain MD PCP - General Internal Medicine 11/07/19
== END 2024-03-24 08:22 | disposition home or self-care (01) ==
PROVIDERS: PCP Internal Medicine; Visit Provider Internal Medicine Hematology & Oncology
DX: C18.6 Malignant neoplasm of descending colon (principal); K80.20 Calculus of gallbladder without cholecystitis without obstruction; K57.30 Diverticulosis of large intestine without perforation or abscess without bleeding; K43.9 Ventral hernia without obstruction or gangrene; K44.9 Diaphragmatic hernia without obstruction or gangrene; Z90.49 Acquired absence of other specified parts of digestive tract
CPT/HCPCS: 36415; 74177; 80053; 82378; 85025; Q9967

== ENCOUNTER 2024-07-28 10:34 | Outpatient (CLI) | payer MEDICARE, SELFPAY ==
[2024-07-28 10:50] LABS: Basophils Absolute Auto 0.05 K/mm3 (0.00-0.10); Hematocrit 41.2 % (35.0-42.0); Hemoglobin 13.7 g/dL (11.7-13.8); Immature Granulocyte Absolute 0.01 K/mm3 (0.00-0.00); Immature Granulocyte Percent A 0.2 % (0.0-0.0); Lymphocytes Absolute Auto 1.07 K/mm3 (1.10-4.50); Lymphocytes Percent Auto 21.5 % (18.0-42.0); Mean Corpuscular HGB Conc 33.3 g/dL (32-36); Mean Corpuscular Hemoglobin 30.2 pg (27.0-31.0); Mean Corpuscular Volume 90.9 fL (78.0-102.0); Mean Platelet Volume 9.3 fl (9.2-11.8); Monocytes Absolute Auto 0.47 K/mm3 (0.10-0.90); Monocytes Percent Auto 9.4 % (2.0-11.0); Neutrophils Absolute Auto 2.98 K/mm3 (1.70-7.20); Neutrophils Percent Auto 59.9 % (50.0-70.0); Platelet Count Result 234 K/mm3 (150-420); Red Blood Count 4.53 M/mm3 (4.20-5.40)
[2024-07-28 11:10] LABS: Alanine Aminotransferase 18 U/L (6-35); Alkaline Phosphatase 90 U/L (38-126); Anion Gap 6 mmol/L (4-12); Aspartate Amino Transferase 26 U/L (14-36); Bilirubin,Total 0.8 mg/dL (0.2-1.3); Blood Urea Nitrogen 22 mg/dL (7-17); Calcium 9.1 mg/dL (8.4-10.2); Carbon Dioxide 26 mmol/L (22-30); Chloride 108 mmol/L (98-107); Estimated Glomerular Filt Rate 58; Glucose 83 mg/dL (65-110); Osmolality Calculated 292 mOsm/kg (285-295); Potassium 3.9 mmol/L (3.4-5.0); Sodium 140 mmol/L (137-145); Total Protein 6.6 g/dL (6.3-8.2)
[2024-07-29 21:19] LABS: Carcinoembryonic Antigen 4.6 ng/mL
== END 2024-07-28 10:35 | disposition home or self-care (01) ==
LOC: CHSLAB 10:36
PROVIDERS: PCP Internal Medicine; Visit Provider Internal Medicine Hematology & Oncology
DX: C18.6 Malignant neoplasm of descending colon (principal)
CPT/HCPCS: 36415; 80053; 82378; 85025

== ENCOUNTER 2024-12-01 07:57 | Outpatient (CLI) | payer MEDICARE, SELFPAY ==
--- NOTE | ~2024-12-01 | CT_ITS ---
EXAMINATION: CT abdomen pelvis w con DATE: 12/01/2024 08:34 INDICATION: Malignant neoplasm of descending colon. TECHNIQUE: Computed tomography (CT) of the abdomen and pelvis was performed with 100 mL Omnipaque 350 intravenous contrast. Automated exposure control and iterative reconstruction technique were employed. The dose-length product was 357.72 mGy-cm. COMPARISON: CT abdomen and pelvis 03/24/2024 FINDINGS: The visualized portions of the lung bases demonstrate mild atelectasis. There is a 6 mm nodule in left lower lobe, stable from 03/24/2014, likely benign. No pleural effusion. The heart size is normal. No pericardial effusion. There is a moderate-sized sliding hiatal hernia. There are cysts in the liver measuring up to 2.3 cm. There are gallstones in the gallbladder, which is normal in size. The spleen, pancreas, adrenal glands, and kidneys are normal. There is diverticulosis of the colon without evidence of diverticulitis. There are changes of right hemicolectomy. There are no pathologically enlarged lymph nodes. There is no free intraperitoneal fluid. There is a left-sided rectus hernia containing fat. There are old healed fractures of the bilateral inferior pubic rami. There is lumbar levoscoliosis and severe spondylosis. There is mild chronic anterior wedging of T10-T12 vertebral bodies. IMPRESSION: 1. No evidence of metastatic disease. 2. Moderate-sized sliding hiatal hernia. 3. Left-sided rectus hernia containing fat. Reviewed, dictated and finalized at location E.
--- OUTSIDE RECORDS SUMMARY | 2024-12-01 08:02 | XMS_ITS | Clinical Summary ---
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 She is not terribly symptomatic at her MTP joints for the time being. If she becomes so evaluation by our foot ankle specialist may be helpful. Arthritis of right knee 03/10/2019 Assessment & Plan (01/17/2021 3:04 PM HAND BANDER): Patient has advanced arthritis of the right [...] Assessment & Plan (02/26/2020 11:40 AM HAND BANDER): Patient has reactive synovitis of her right [...] Assessment & Plan (03/10/2019 1:25 PM HAND BANDER): Patient has moderate arthritis of the right [...] Assessment & Plan (03/13/2022 9:35 AM HAND BANDER): Patient has developed recurrent bursitis of the [...] on the side Closed fracture of pubis 10/19/2015 Overview (05/10/2016): Other closed fracture of left pubis with delayed healing, subsequent encounter Rupture of tendon of hip 10/19/2015 Overview (05/10/2016): Tear of left gluteus minimus tendon, subsequent encounter Fracture of sacrum 10/19/2015 Overview (05/12/2016): Sacral insufficiency fracture with delayed healing Hypertension 05/19/2010 Bronchial asthma 05/19/2010 Osteoporosis 05/19/2010 Encounters Date Type Department Care Team Description 09/10/2024 10:15 AM CDT Office Visit [facility] Medicine Ophthalmology [address] [place] [address] Health 6th [place] [phone] Alyce Hidalgo MD PhD 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 Three times a week 04/28/2021 How often do you get togethe r with friends or relatives? Twice a week 04/28/2021 Attends [employer] Not on file 04/28 Active Member [...] place to sleep or slept in a m[facility]p (including now)? No 04/28/2021 Comments No Sex and Gender Information Value Date Recorded Sex Assigned at Not on file Legal Sex Female 4:12 AM HAND BANDER Gender Identity Not on file Sexual Orientation [...] kg (123 lb) 03/13/2022 8:59 AM HAND BANDER Height 147.3 cm (4' 9.99) 03/13/2022 8:59 AM CS T Body Mass Index 25.71 03/13/2022 8:59 AM HAND BANDER Plan of Treatment Health Maintenance Due Date Last Done Comments Depression Screening 1945 Hepatitis C Screening 1945 DTaP/Tdap/Td Vaccine (1 - Tdap) 1956 Hepatitis B Screening 12/27/1963 Zoster Vaccine (1 of 2) 12/27/1995 Well Visit 65+ 2010 Osteoporosis Screening-Bone Density Scan 11/21/2015 11/20/2013, 11/14/2012 Fall Risk Assessment 04/29/2022 04/29/2021 Covid-19 Vaccine (4 - 2024-2 6 season) 2024 11/03/2020, 03/01/2020, 02/09/2020 Influenza Vaccine (#1) 2024 , 11/04/2019, 12/11/2018, Additional history exists Pneumococcal vaccine 65+ Completed 02/09/2016, 09/2011 Medical Devices Implanted Type Area Juice Tester Device Identifier Shelf Expiration Date Model / Serial / Lot Refocus Imaging [id number] [place] R High Viscosity Cement 40gm Bone Green - [id number] Implanted:Qty: 1 on 04/27/2021 by Carlos Alberto Ferrera MD at [facility] Right: Knee [employer] 07/06/2023 [id number] / / [id number] [employer] [id number] Persona Cruciate Retain Knee Right 5 Narrow Component Femoral - [id number] Implanted:Qty: 1 on 04/27/2021 by Carlos Alberto Ferrera MD at [facility] Right: Knee [employer] 10/14/2029 [id number] / / [id number] [employer] [id number] Persona Cemented Stem Knee Right 5d C Baseplate Tibial Tivanium - [id number] Implanted:Qty: 1 on 04/27/2021 by Carlos Alberto Ferrera MD at [facility] Right: Knee [employer] 10/03/2030 [id number] / / [id number] [employer] [id number] Persona 12mm Knee Right 4-5 C-D Insert Articular Vivacit-E - [id number] Implanted:Qty: 1 on 04/27/2021 by Carlos Alberto Ferrera MD at [facility] Right: Patella [employer] 02/04/2023 [id number] / / [id number] Procedures Procedure Name Priority Date/Time Associated Diagnosis Comments B-SCAN & A-SCAN 43110 - OS - LEFT EYE Routine 09/10/2024 12:27 PM CDT Neoplasm of uncertain behavior of choroid OCT, RETINA - OU - BOTH EYES Routine 09/10/2024 12:25 PM CDT Neoplasm of uncertain behavior of choroid FUNDUS PHOTOS/FAF - OU - BOTH EYES Routine 09/10/2024 12:25 PM CDT Neoplasm of uncertain behavior of choroid BONE MINERAL DENSITY 11/20/2013 from Last 3 Months or Most Recently Relevant to Health Maintenance Results * B-Scan & A-Scan 89128 - OS - Left Eye (09/10/2024 12:27 PM CDT) Height 2.23 millimeters CONTINUUM Transverse 9.71 millimeters CONTINUUM Longitude 10.51 millimeters CONTINUUM Clock Hour 12 O'Clock CONTINUUM Anatomical Region Laterality Modality Head Ultrasound Narrative 09/10/2024 12:27 PM CDT 12 O'Clock. 10.51 millimeters. 9.71 millimeters. 2.23 millimeters. Alyce Hidalgo MD PhD OPHTH ULTRASOUND Fin al Result * OCT, Retina - OU - Both Eyes (09/10/2024 12:25 PM CDT) Anatomical Region Laterality Modality Head Optical Coherenc e Tomography Narrative 09/10/2024 12:25 PM CDT right eye (OD); wnl left eye (OS):persistent subretinal fluid overlying elevated ,superior choroidal lesion , no central macula subretinal fluid Alyce Hidalgo MD PhD OPHTH TOMOGRAPHY Prateek dany Result - Final * Fundus Photos/FAF - OU - Both Eyes (09/10/2024 12:25 PM CDT) Anatomical Region Laterality Modality Head Fundus Photograp hy Narrative 09/10/2024 12:25 PM CDT right eye (OD); wnl left eye (OS); stable pigmented choroidal lesion superior to disc with overlying fibrosis and retinal pigment epithelium (RPE) atrophy nasally,orange pigment Alyce Hidalgo MD PhD OPHTH PHOTOGRAPHY Fi nal Result * BONE MINERAL DENSITY (11/20/2013) Anatomical Region Laterality Modality Radiographic Negar ging Narrative 11/20/2013 Ordered by an unspecified provider. Bebe MANNG DXA PROCEDURES Final Result from Last 3 Months or Most Recently Relevant to Health Maintenance Insurance MEDICARE AETNA SENIOR SUPPLEMENT MEDICARE AETNA SENIOR SUPPLEMENT Advance Directives For more information, please contact: [phone] * Full Code (Latest Code Status on File) Date Activated Date Inactivated Comments 04/27/2021 5:44 PM 04/29/2021 6:26 PM Care Teams Gas Mask Assembler Relationship Specialty Start Date End Date Ben Crain MD PCP - General Internal Medicine 11/07/19
--- OUTSIDE RECORDS SUMMARY | 2024-12-01 08:02 | XMS_ITS | Clinical Summary ---
Author Organization [facility] Address [address] [facility] [facility] [place] [address] Care Team Providers Care Public Health Doctor Name Role Phone Ben Crain MD Primary Care Provider [phone] Allergies Active Allergy Reactions Criticality Noted Date Comments Sulfa (Sulfonamide Antibiotics) Unknown 08/05 Medications ascorbic acid (vitamin C) 250 mg tablet Take 250 mg by mouth. 2 Active losartan (COZAAR) 100 mg tablet Take 100 mg by mouth daily. Active montelukast (SINGULAIR) 10 mg tablet Take 10 mg by mouth daily at bedtime. Active raloxifene (EVISTA) 60 mg tablet Take 60 mg by mouth daily. Active VIT B COMP NO.8-[id number] OTIN ORAL Take 250 mg by mouth. Active CALCIUM CARBONATE ORAL Take 300 mg by mouth. Active famotidine (PEPCID) 40 mg tablet Take 40 mg by mouth daily. 3 Active capecitabine (XELODA) 150 mg tablet Take 5 Tablets (750 mg) by mouth 2 times daily with meals for 14 days on then 7 days off every 21 day cycle. (Take along with 500mg [id number] dose) 140 Tablet 4 11/14/2022 2:28 PM CDT 3 Active Additional Information Patient not taking.Reported on 07/30/2024 capecitabine (Xeloda) 500 mg tablet Take 1 Tablet (500 mg) by mouth 2 times daily with meals for 14 days on then 7 days off every 21 day cycle. (Take along with 150mg [id number] dose) 28 Tablet 4 11/14/2022 2:28 PM CDT 3 Active Additional Information Patient not taking.Reported on 07/30/2024 potassium chloride (KLOR-CON) 20 mEq Extended Release tablet TAKE 1 TABLET(20 MEQ) BY MOUTH TWICE DAILY 60 Tablet 1 3 Active Active Problems No known active problems Encounters Date Type Department Care Team Description 11/25/2024 External Device Data STL ABSTRACTION Provider, Abstract 10/07/2024 External Device Data STL ABSTRACTION Provider, Abstract 09/24/2024 External Device Data STL ABSTRACTION Provider, Abstract 09/10/2024 External Device Data STL ABSTRACTION Provider, Abstract [...] Sign Reading Time Taken Comments Blood Pressure 129/62 07/30/2024 1:09 PM CDT Pulse 65 07/30/2024 1:09 PM CDT Temperature 36.4 C (97.6 F) 07/30/2024 1:09 PM CDT Respiratory Rate 15 07/30/2024 1:09 PM CDT Oxygen Saturation 95% 07/30/2024 1:09 PM CDT Inhaled Oxygen Concentration - - Weight 56.5 kg (124 lb 9.6 oz) 07/30/2024 1:09 P M CDT Height 147.3 cm (4' 10) 08/15/2022 9:40 AM CDT Body Mass Index 26.04 08/15/2022 9:40 AM CDT Plan of Treatment Upcoming Encounters Date Type Department Care Team (Late st Contact Info) Description 12/08/2024 1:15 PM CLOTH OPENER HAND Office Visit [facility] Oncology and Hematology - [address] [place] [phone] Pérez Quintero MD [address] [facility] [address] [place] [address] Health Maintenance Due Date Last Done Comments DTAP/TDAP/TD VACCINES (1 - Tdap) 1964 PNEUMOCOCCAL VACCINE 50+ YEA RS (1 of 2 - PCV) 1964 ZOSTER VACCINE (1 of 2) 12/27/1995 RSV VACCINE (60+ or ) (1 - 1-dose 75+ series) 2020 OSTEOPOROSIS SCREENING 07/27/2023 07/26/2018 INFLUENZA VACCINE (#1) 2024 COLORECTAL SCREENING Discontinued 10/09/2023, 06/29/19 23 Colorectal Cancer Screening Discontinued FIT-DNA Q 3 years Discontinued FIT/FOBT Q 1 year Discontinued Flex Sig/CT Colonography Q 5 years Discontinued Insurance MEDICARE PART A AND B AETNA MEDICARE SUPP AESSI RX [facility] Medicare Part D RX [employer] Medicare Part B Care Teams Public Health Doctor Relationship Specialty Start Date End Date Ben Crain MD [address] [place] [phone] PCP - General Internal Medicine 08/15/22
--- OUTSIDE RECORDS SUMMARY | 2024-12-01 08:02 | XMS_ITS | Clinical Summary ---
Author Organization [facility] Address [address] [place] [id number] Care Team Providers Care Telegraphic Typewriter Operator Name Role Phone Unavailable Primary Care Provider [...] 5:08 PM CDT Height 147.3 cm (4' 10) 05/15/2005 5:08 PM CDT Body Mass Index 25.08 05/15/2005 5:08 PM CDT Plan of Treatment Health Maintenance Due Date Last Done Comments Hepatitis C 12/27/1963 DTaP, Tdap and Td Vaccines ( 1 - Tdap) 1964 Pneumococcal Vaccine: 50+ Ye ars (1 of 1 - PCV) 12/27/1995 Zoster Vaccines (1 of 2) 12/27/1995 Dexa Scan (General) 2010 RSV Immunization or 60+ Years (1 - 1-dose 75+ series) 2020 COVID-19 Vaccine ( - 2024-2 6 season) 2024 Influenza Adult (#1) 2024 Hepatitis A Vaccines Aged Out No long er eligible based on patient's age to complete this topic Meningococcal B Vaccine Aged Out No l onger eligible based on patient's age to complete this topic Meningococcal Vaccine Aged Out No adonay pablo eligible based on patient's age to complete this topic RSV Immunizations Under 20 Months Aged Out No longer eligible based on patient's age to complete this topic
[2024-12-01 08:24] LABS: Estimated Glomerular Filt Rate 48
[2024-12-01 09:39] LABS: Hematocrit 41.4 % (37.0-47.0); Hemoglobin 13.6 g/dL (12.0-15.0); Immature Granulocyte Percent A 0.5 % (0-0.5); Lymphocytes Absolute Auto 0.74 K/mm3 (0.9-3.2); Mean Corpuscular HGB Conc 32.9 g/dl (32-36); Mean Corpuscular Hemoglobin 30.6 pg (26-34); Mean Corpuscular Volume 93.0 fl (80-100); Nucleated Red Blood Cells Absolute Auto 0.000 K/mm3 (0.0-0.012); Nucleated Red Blood Cells Perc 0.0 % (0.0-0.2); Platelet Count Result 216 k/mm3 (150-375); Red Blood Count 4.45 M/mm3 (4.2-5.4); White Blood Count 3.9 K/mm3 (4.5-10.0)
[2024-12-01 10:07] LABS: Alanine Aminotransferase 13 U/L (6-35); Albumin Level 3.7 g/dL (3.5-5.1); Alkaline Phosphatase 81 U/L (38-126); Anion Gap 6 mmol/L (4-12); Aspartate Amino Transferase 23 U/L (14-36); Bilirubin,Total 0.8 mg/dL (0.2-1.3); Blood Urea Nitrogen 18 mg/dL (7-17); Calcium 8.7 mg/dL (8.4-10.2); Carbon Dioxide 28 mmol/L (22-30); Chloride 101 mmol/L (98-107); Estimated Glomerular Filt Rate 60; Glucose 82 mg/dL (65-110); Potassium 4.0 mmol/L (3.4-5.0); Sodium 135 mmol/L (137-145); Total Protein 6.3 g/dL (6.3-8.2)
[2024-12-01 10:43] LABS: Carcinoembryonic Antigen 7.7 ng/mL (0.0-3.0)
== END 2024-12-01 07:58 | disposition home or self-care (01) ==
PROVIDERS: PCP Internal Medicine; Visit Provider Internal Medicine Hematology & Oncology
DX: C18.6 Malignant neoplasm of descending colon (principal)
CPT/HCPCS: 36415; 74177; 80053; 82378; 85025; Q9967